=== PATIENT | female | born 1945 | race Caucasian/White ===

== ENCOUNTER → 2017-06-18 | Outpatient (CLI) | payer MEDICARE, OTHER ==
[~2017-06-18] MED LIST: CALC-51 PO; CALCTAB5 PO; CHOL2000 PO; CLC/300 PO; CYAN100073 PO; DEXT1CAP PO; DEXT1TAB15 PO; FERR1TAB13 PO; LORA-741 PO; OMEP40CA41 PO; ONDA-63 PO; ONDA4TAB65 PO; OXYC-609 PO; OXYC1CAP5 PO; PANT40TA PO; POLY335019 PO; RXC5 PO; SENN-61 PO; TRAM-10 PO; ULT/50 PO
[2017-06-18 17:43] LABS: HEMATOCRIT 22.4 % (37-47); HEMOGLOBIN 5.8 g/dL (12.0-16.0); MEAN CELL VOLUME 62.2 fL (80-100); MEAN CORPUSCULAR HEMOGLOBIN 16.1 pg (25-34); MEAN CORPUSCULAR HGB CONC 25.9 g/dl (32-36); MEAN PLATELET VOLUME 9.7 fL (7.4-10.4); NUCLEATED RED BLOOD CELL ABS 0.12 K/uL (0-0); PLATELET COUNT 407 K/uL (130-400); RED CELL DISTRIBUTION WIDTH CV 20.6 % (11.5-14.5); RED CELL DISTRIBUTION WIDTH SD 46.3 fL (36.4-46.3); WHITE BLOOD COUNT 7.27 K/uL (4.8-10.8)
[2017-06-18 17:53] LABS: BASO % 0.7 %; BASO ABS # 0.05 K/uL (0-0.2); EOS % 0.3 %; EOS ABS # 0.02 K/uL (0-0.5); IG# 0.01 K/uL (0.00-0.02); LYMPH % 6.6 %; LYMPH ABS # 0.48 K/uL (1.2-3.4); MONO % 14.6 %; MONO ABS # 1.06 K/uL (0.11-0.59); NEUT % 77.7 %; NEUT ABS # 5.65 K/uL (1.4-6.5)
[2017-06-18 18:34] LABS: ALBUMIN 3.5 gm/dl (3.4-5.0); ALT/SGPT 13 U/L (12-78); AST/SGOT 14 U/L (15-37); BLOOD UREA NITROGEN 21 mg/dl (7-18); CALCIUM 7.9 mg/dl (8.5-10.1); CARBON DIOXIDE 26 mmol/L (21-32); CREATININE 0.98 mg/dl (0.60-1.20); GLUCOSE 89 mg/dl (70-99); POTASSIUM 4.7 mmol/L (3.5-5.1); SODIUM 135 mmol/L (136-145)
[2017-06-18 18:44] LABS: ALKALINE PHOSPHATASE 149 U/L (45-117); TOTAL PROTEIN 7.4 gm/dl (6.4-8.2)
== END | disposition home or self-care (01) ==
LOC: C.LABPBG 15:45
PROVIDERS: ATTEND Family Medicine
DX: D64.9 Anemia, unspecified (principal); R10.9 Unspecified abdominal pain; E03.9 Hypothyroidism, unspecified

== ENCOUNTER 2017-06-19 15:19 | Inpatient (IN) | payer MEDICARE, OTHER ==
[~2017-06-19] VITALS: Ht 147.3 cm; Wt 59.6 kg
[2017-06-19] VITALS (12 sets, daily range): BP systolic 124–182; BP diastolic 62–97; PULSE 88–107; TEMP 36.6–37.4; O2SAT 97–100; Ht 147.3 cm; Wt 59.6 kg
[~2017-06-19 15:19] MED LIST changes: -CALC-51 PO; -CHOL2000 PO; -CYAN100073 PO; -DEXT1TAB15 PO; -OMEP40CA41 PO; -ONDA-63 PO; -OXYC-609 PO; -SENN-61 PO; -ULT/50 PO
[2017-06-19] MEDS ORDERED: SODIUM CHLORIDE 0.9% 500ML 500 ML IV STA (15:59)
--- NOTE | 2017-06-19 16:00 | EMERGENCY ROOM VISIT NOTE ---
History Report prepared by Iliana: Cb Man Under the Supervision of: Dr. Jaya Argueta M.D. First contact with patient: 15:35 Chief Complaint: ABNORMAL LABS Stated Complaint: LOW HBG History of Present Illness The patient is a 72 year old female who presents to the Emergency Room with complaints of constant low hemoglobin noticed this morning. The patient had outpatient blood work done, and she was found to have a low hemoglobin and told to come to the ED for evaluation. The patient states that she has had low hemoglobin before, and she has been scoped before though she has not had a colonoscopy. She was transfused before though not in the past 3 months. The patient notes that she has had weakness, shortness of breath, chest pain, vomiting, abdominal pain, and abdominal distension. She notes that she is not brining very much up when she vomits, and she states that she is hungry. She denies any black coffee ground emesis, bloody stools, and black stools. The patient has had three failed back surgeries that have made it more difficult to breathe. She denies any history of heart attacks, and she does not use any blood thinners. Source of History: patient Onset: this morning Position: other (generalized) Quality: other (shortness of breath) Timing: constant Associated Symptoms: + chest pain, + SOB, + vomiting, + abdominal pain, + weakness Review of Systems See HPI for pertinent positives and negatives. A total of ten systems were reviewed and were otherwise negative. 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 (11) Lumbar stenosis with neurogenic claudication (12) Narcolepsy (13) Postural kyphosis, thoracic region (14) Symptomatic anemia Surgical Problems: (1) History of back surgery (2) S/p breast fibroid removal Family History FHx: cancer Social History Smoking Status: Never Smoker Drug Use: none Marital Status: Housing Status: lives with significant other Current/Historical Medications Scheduled Calcium Carbonate-Vitamin D (Calcium), 1 TAB PO DAILY Dextroamphetamine Sulfate (Dextroamphetamine Sulfate), 20 MG PO QAM Ferrous Sulfate (Kp Ferrous Sulfate), 325 MG PO BID Lorazepam (Ativan), 0.5 MG PO HS Omeprazole (Prilosec), 40 MG PO BID Scheduled PRN Ondansetron (Ondansetron HCl), 8 MG PO UD PRN for Nausea Oxycodone HCl (Oxycodone HCl), 5 MG PO UD PRN for Pain Polyethylene Glycol 3350 (Miralax), 17 GM PO DAILY PRN for constipation Tramadol Hcl (Ultram), 50 MG PO UD PRN for Pain Allergies Coded Allergies: Midazolam (Unverified Allergy, Severe, AGRESSIVENESS, MEMORY LOSS, 06/19/17 ) Vancomycin (Verified Allergy, Severe, red man syndrome and XENIA, 06/19/17) Daptomycin (Verified Allergy, Mild, RASH, 06/19/17) Gluten (Verified Adverse Reaction, Unknown, SEVERE GI DISTRESS, 06/19/17) Physical Exam Vital Signs Date Time Temp Pulse Resp B/P (MAP) Pulse Ox O2 Delivery O2 Flow Rate FiO2 06/19/17 19:51 90 25 100 Nasal Cannula 2.0 06/19/17 19:46 37.2 123/86 06/19/17 19:31 138/95 06/19/17 19:30 95 19 99 06/19/17 19:30 37.1 95 18 138/95 99 2.0 06/19/17 19:17 144/99 06/19/17 19:01 140/78 06/19/17 19:00 37.2 92 24 140/78 100 2.0 06/19/17 19:00 92 24 100 06/19/17 18:44 37.1 99 20 138/91 99 2.0 06/19/17 18:34 154/74 06/19/17 18:33 36.6 94 30 124/62 100 2.0 06/19/17 18:27 124/62 06/19/17 17:49 93 26 06/19/17 17:19 93 19 95 06/19/17 17:19 94 22 136/67 96 Room Air 06/19/17 17:17 136/67 06/19/17 16:54 93 06/19/17 15:26 37.1 100 22 124/65 99 Room Air Physical Exam GENERAL: Awake, alert, fatigued-appearing, in no distress HENT: Normocephalic, atraumatic. Oropharynx unremarkable. Dry mucous membranes. EYES: Normal conjunctiva. Sclera non-icteric. NECK: Supple. No nuchal rigidity. FROM. No JVD. RESPIRATORY: Clear to auscultation. CARDIAC: 3/6 systolic murmur Regular rate, normal rhythm. Extremities warm and well perfused. Pulses equal. ABDOMEN: Soft, non-distended. No tenderness to palpation. No rebound or guarding. No masses. RECTAL: Deferred. MUSCULOSKELETAL: Chest examination reveals no tenderness. The back is symmetrical on inspection without obvious abnormality. There is no CVA tenderness to palpation. No joint edema. LOWER EXTREMITIES: Calves are equal size bilaterally and non-tender. No edema. No discoloration. NEURO: Normal sensorium. No sensory or motor deficits noted. SKIN: Pale. No rash or jaundice noted. Medical Decision & Procedures Laboratory Results 06/19/17 16:05 Red Blood Count 3.17, Mean Corpuscular Volume 61.5, Mean Corpuscular Hemoglobin 15.8, Mean Corpuscular Hemoglobin Concent 25.6, Mean Platelet Volume 9.8, Neutrophils (%) (Auto) 72.5, Lymphocytes (%) (Auto) 12.8, Monocytes (%) (Auto) 13.1, Eosinophils (%) (Auto) 0.6, Basophils (%) (Auto) 0.8, Neutrophils # (Auto ) 4.70, Lymphocytes # (Auto) 0.83, Monocytes # (Auto) 0.85, Eosinophils # (Auto ) 0.04, Basophils # (Auto) 0.05 06/19/17 16:05 Test 06/19/17 16:05 06/19/17 16:15 06/19/17 19:48 White Blood Count 6.48 K/uL (4.8-10.8) Red Blood Count 3.17 M/uL (4.2-5.4) Hemoglobin 5.0 g/dL (12.0-16.0) Hematocrit 19.5 % (37-47) Mean Corpuscular Volume 61.5 fL (80-100) Mean Corpuscular Hemoglobin 15.8 pg (25-34) Mean Corpuscular Hemoglobin Concent 25.6 g/dl (32-36) Platelet Count 378 K/uL (130-400) Mean Platelet Volume 9.8 fL (7.4-10.4) Neutrophils (%) (Auto) 72.5 % Lymphocytes (%) (Auto) 12.8 % Monocytes (%) (Auto) 13.1 % Eosinophils (%) (Auto) 0.6 % Basophils (%) (Auto) 0.8 % Neutrophils # (Auto) 4.70 K/uL (1.4-6.5) Lymphocytes # (Auto) 0.83 K/uL (1.2-3.4) Monocytes # (Auto) 0.85 K/uL (0.11-0.59) Eosinophils # (Auto) 0.04 K/uL (0-0.5) Basophils # (Auto) 0.05 K/uL (0-0.2) RDW Standard Deviation 46.0 fL (36.4-46.3) RDW Coefficient of Variation 20.8 % (11.5-14.5) Immature Granulocyte % (Auto) 0.2 % Immature Granulocyte # (Auto) 0.01 K/uL (0.00-0.02) Nucleated RBC Absolute Count (auto) 0.06 K/uL (0-0) Nucleated Red Blood Cells % 0.9 % Giant Platelets 1+ Polychromasia 1+ Hypochromasia PRESENT Anisocytosis PRESENT Microcytosis PRESENT Absolute Reticulocyte Count 0.09 10^6/uL (0.02-0.10) Percent Reticulocyte Count 2.9 % (0.5-2.0) Prothrombin Time 12.0 SECONDS (9.0-12.0) Prothromb Time International Ratio 1.1 (0.9-1.1) Activated Partial Thromboplast Time 23.6 SECONDS (21.0-31.0) Partial Thromboplastin Ratio 0.9 Anion Gap 6.0 mmol/L (3-11) Est Creatinine Clear Calc Drug Dose 38.6 ml/min Estimated GFR () 52.0 Estimated GFR (Non- 44.8 BUN/Creatinine Ratio 25.2 (10-20) Calcium Level 7.4 mg/dl (8.5-10.1) Iron Level 12 mcg/dl (35-150) Total Iron Binding Capacity 439 mcg/dl (250-450) Transferrin 344 mg/dl (200-360) Transferrin % Saturation 2 % (15-50) Ferritin 4.7 ng/ml (8.0-388.0) Total Bilirubin 0.5 mg/dl (0.2-1) Direct Bilirubin 0.2 mg/dl (0-0.2) Aspartate Amino Transf (AST/SGOT) 12 U/L (15-37) Alanine Aminotransferase (ALT/SGPT) 13 U/L (12-78) Alkaline Phosphatase 148 U/L (45-117) Lactate Dehydrogenase 231 U/L (84-246) Troponin I < 0.015 ng/ml (0-0.045) Total Protein 7.2 gm/dl (6.4-8.2) Albumin 3.4 gm/dl (3.4-5.0) Lipase 83 U/L (73-393) Lactic Acid Level 1.2 mmol/L (0.4-2.0) Urine Color YELLOW Urine Appearance CLEAR (CLEAR) Urine pH 7.0 (4.5-7.5) Urine Specific [place] 1.011 (1.000-1.030) Urine Protein NEG (NEG) Urine Glucose (UA) NEG (NEG) Urine Ketones NEG (NEG) Urine Occult Blood NEG (NEG) Urine Nitrite NEG (NEG) Urine Bilirubin NEG (NEG) Urine Urobilinogen NEG (NEG) Urine Leukocyte Esterase NEG (NEG) Laboratory results reviewed by me Medications Administered Medications (Trade) Dose Ordered Sig/Tez Route Start Time Stop Time Status Last Admin Dose Admin Sodium Chloride 500 ml @ 999 mls/hr Q31M STAT IV 06/19/17 15:59 06/19/17 16:29 DC 06/19/17 17:22 999 MLS/HR ECG Per My Interpretation Indication: SOB/dyspnea, other (low hemoglobin) Rate (beats per minute): 85 Rhythm: normal sinus Findings: no acute ischemic change, other (normal axis) ED Course 1535: The patient was evaluated in room C10. A complete history and physical exam was performed. Medical Decision I reviewed the patient's past medical history, medications, and the nursing notes as described above. Differential diagnosis: Etiologies such as diverticulosis, AVM, coagulopathy, colitis, inflammatory bowel disease, malignancy, Sravani-Serrano tear, esophagitis, peptic ulcer disease , variceal bleed, gastritis, epistaxis, fissure, hemorrhoids, as well as others were entertained. The patient is a 72-year-old woman with a past medical history of spinal stenosis as well as a prior history of severe anemia requiring transfusion who presents emergency department after having outpatient labs that demonstrated a hemoglobin of 5.8 per hpi. On arrival, the patient is fatigued and pale appearing but no acute distress, afebrile stable vital signs. Patient denies any hematemesis/coffee grounds or melena or hematochezia. Rectal exam demonstrates scant brown stool that is guaiac negative. Hemoglobin here today is 5.0. MCV 60s. Mild XENIA with creatinine 1.2 slightly increased from 2 days prior. WBC and lactate within normal limits. Patient was consented for blood and transfused [address] the abdomen pelvis was done and was unremarkable. EKG unremarkable. Patient remained hemodynamically stable in the emergency department. Case was discussed with Dr. Mancia [facility] hospitalist who will admit the patient for further management. Medication Reconcilliation Current Medication List: was personally reviewed by me Blood Pressure Screening Patient's blood pressure: Elevated blood pressure Consults Time Called: 1745 Consulting Physician[facility] Returned Call: [phone] Will evaluate patient for admission. Impression Primary Impression: Severe anemia Critical Care I have personally spent greater than 35 minutes of critical care time in the direct management of this patient. This includes bedside care, interpretation of diagnostic studies, and testing, discussion with consultants, patient, and family members, and other required patient management activities. This 35 minutes is in excess of all separately billable procedures. Scribe Attestation The scribe's documentation has been prepared under my direction and personally reviewed by me in its entirety. I confirm that the note above accurately reflects all work, treatment, procedures, and medical decision making performed by me. Departure Information Referrals Glo Hoang DO (PCP) Patient Instructions My [facility]
[2017-06-19] MEDS ORDERED: CALC-51 PO (16:13)
[2017-06-19] MEDS ORDERED: DEXT1TAB15 PO (16:13)
[2017-06-19] MEDS ORDERED: OXYC-609 PO (16:13)
[2017-06-19] MEDS ORDERED: OMEP40CA41 PO (16:13)
[2017-06-19] MEDS ORDERED: ULT/50 PO (16:13)
[2017-06-19] MEDS ORDERED: ONDA-63 PO (16:13)
--- NOTE | 2017-06-19 16:19 | DIAGNOSTIC IMAGING REPORT ---
SINGLE VIEW CHEST CLINICAL HISTORY: Generalized abdominal pain. FINDINGS: An AP, portable, upright chest radiograph is compared to study dated 07/31/2015. The examination is degraded by portable technique and patient rotation. The heart is enlarged and there is atherosclerotic calcification of the thoracic aorta. The pulmonary vasculature is noncongested. A hiatal hernia is noted. There are low lung volumes. Platelike atelectasis is present at both lung bases. There is no airspace consolidation typical for pneumonia or large pleural effusion. No pneumothorax is seen. The skeletal structures are osteopenic. There are postoperative changes from extensor thoracolumbar spinal fusion with spinal rods in place. IMPRESSION: 1. Low lung volumes and cardiomegaly with no acute cardiopulmonary abnormality. 2. Hiatal hernia. Electronically signed by: Hao Valencia M.D. 06/19/2017 4:18 PM Dictated Date/Time: 06/19/2017 4:15 PM
[2017-06-19 16:41] LABS: INR 1.1 (0.9-1.1); PTT PATIENT 23.6 SECONDS (21.0-31.0)
[2017-06-19 16:46] LABS: HEMATOCRIT 19.5 % (37-47); MEAN CELL VOLUME 61.5 fL (80-100); MEAN CORPUSCULAR HEMOGLOBIN 15.8 pg (25-34); MEAN CORPUSCULAR HGB CONC 25.6 g/dl (32-36); MEAN PLATELET VOLUME 9.8 fL (7.4-10.4); NUCLEATED RED BLOOD CELL ABS 0.06 K/uL (0-0); PLATELET COUNT 378 K/uL (130-400); RED CELL DISTRIBUTION WIDTH CV 20.8 % (11.5-14.5); WHITE BLOOD COUNT 6.48 K/uL (4.8-10.8)
[2017-06-19 16:56] LABS: ALBUMIN 3.4 gm/dl (3.4-5.0); ALT/SGPT 13 U/L (12-78); AST/SGOT 12 U/L (15-37); BLOOD UREA NITROGEN 31 mg/dl (7-18); CALCIUM 7.4 mg/dl (8.5-10.1); CARBON DIOXIDE 26 mmol/L (21-32); CREATININE 1.22 mg/dl (0.60-1.20); GLUCOSE 87 mg/dl (70-99); LIPASE 83 U/L (73-393); POTASSIUM 4.8 mmol/L (3.5-5.1); SODIUM 131 mmol/L (136-145)
[2017-06-19 16:59] LABS: BASO % 0.8 %; BASO ABS # 0.05 K/uL (0-0.2); EOS % 0.6 %; EOS ABS # 0.04 K/uL (0-0.5); IG# 0.01 K/uL (0.00-0.02); LYMPH % 12.8 %; LYMPH ABS # 0.83 K/uL (1.2-3.4); MONO % 13.1 %; MONO ABS # 0.85 K/uL (0.11-0.59); NEUT % 72.5 %
[2017-06-19] MEDS ORDERED: OPTIRAY 320 IV PRN (17:00)
[2017-06-19 17:01] LABS: ALKALINE PHOSPHATASE 148 U/L (45-117); TOTAL PROTEIN 7.2 gm/dl (6.4-8.2)
--- NOTE | 2017-06-19 18:25 | DIAGNOSTIC IMAGING REPORT ---
ABD/PELVIS IV CONTRAST ONLY CT DOSE: 252.18 mGy.cm HISTORY: Pain anemia TECHNIQUE: Multiaxial CT images of the abdomen and pelvis were performed following the use of intravenous contrast. A dose lowering technique was utilized adhering to the principles of ALARA. COMPARISON STUDY: 07/31/2015 FINDINGS: Minimal dependent basilar atelectasis. Fixed lateral hernia. Stable postoperative changes to the lumbar spine and sacrum. Stable compression deformities previously described. Liver spleen and pancreas are uniform. Kidneys negative for hydronephrosis. Bowel pattern suggests an increased fecal load suggestive of fecal stasis. No evidence for fecal impaction or bladder is slightly distended. No significant abdominal pelvic or inguinal adenopathy. No abnormal mass or collection. IMPRESSION: 1. Mild increase in colonic fecal load suggestive of fecal stasis. 2. Otherwise no acute process of the abdomen or pelvis. 3. Small fixed lateral hernia. 4. Stable postoperative change of the lumbar spine and sacrum /iliac wings The above report was generated using voice recognition software. It may contain grammatical, syntax or spelling errors. Electronically signed by: Kei Brenner M.D. 06/19/2017 6:24 PM Dictated Date/Time: 06/19/2017 6:21 PM
[2017-06-19] MEDS ORDERED: OXYCODONE HCL IR 5 MG TAB (IMMEDIATE RELEASE) PO PRN (19:30)
[2017-06-19] MEDS ORDERED: POLYETHYLENE (MIRALAX) 17 GM PACK PO PRN ×2 (19:30→20:00)
[2017-06-19] MEDS ORDERED: ONDANSETRON 8 MG TAB PO PRN (19:30)
[2017-06-19] MEDS ORDERED: TRAMADOL HCL 50 MG TAB PO PRN (19:30)
--- NOTE | 2017-06-19 19:53 | History and Physical ---
History & Physical Date & Time of Service: Jun 19, 2017 at 19:32 Chief Complaint: Low Hbg Primary Care Physician: Glo Hoang, History of Present Illness Source: patient, family, spouse 72 years old female with past medical history of severe chronic anemia, kyphosis , narcolepsy, failed back surgical syndrome, trigeminal neuralgia, celiac disease and fibromyalgia. Patient had presented before with severe anemia in August, status post multiple units transfusion where her hemoglobin went up to 7.7, since August her hemoglobin dropped slowly, patient admits not taking her iron tablet, in 2015 extensive anemia workup deemed her as iron deficiency anemia. Patient had an upper endoscopy that showed hiatal hernia . No recent colonoscopy. She did have a colonoscopy though about 20 years ago, she was told by the GI doctor that her colon is twisted in a way that he could not pass more than 20 cm into her colon patient have generalized fatigue, weakness. Feeling tired, pale. Recently changed primary care physician's. Her new primary care physician recommended to improve her general health before pursuing with colonoscopy/EGD. She was found to have a hemoglobin of 5.5 and was sent to the hospital for blood transfusion and anemia workup. Past Medical/Surgical History Medical Problems: (1) Ambulatory dysfunction (2) Anemia (3) Celiac disease (4) Chronic anemia (5) Chronic fatigue syndrome (6) Failed back surgical syndrome (7) Fibromyalgia (8) H/O Trung thyroiditis (9) H/o Lyme disease (10) Hiatal hernia (11) Hx of gastric ulcer (12) Infection of lumbar spine (13) Lower back pain (14) Lumbar stenosis with neurogenic claudication (15) Narcolepsy (16) Postural kyphosis, thoracic region (17) Symptomatic anemia Surgical Problems: (1) History of back surgery (2) S/p breast fibroid removal Family History FHx: cancer Social History Smoking Status: Never Smoker Drug Use: none Marital Status: Housing status: lives with family Allergies Coded Allergies: Midazolam (Unverified Allergy, Severe, AGRESSIVENESS, MEMORY LOSS, 06/19/17 ) Vancomycin (Verified Allergy, Severe, red man syndrome and XENIA, 06/19/17) Daptomycin (Verified Allergy, Mild, RASH, 06/19/17) Gluten (Verified Adverse Reaction, Unknown, SEVERE GI DISTRESS, 06/19/17) Home Medications Scheduled Calcium Carbonate-Vitamin D (Calcium), 1 TAB PO DAILY Dextroamphetamine Sulfate (Dextroamphetamine Sulfate), 20 MG PO QAM Ferrous Sulfate (Kp Ferrous Sulfate), 325 MG PO BID Lorazepam (Ativan), 0.5 MG PO HS Omeprazole (Prilosec), 40 MG PO BID Scheduled PRN Ondansetron (Ondansetron HCl), 8 MG PO UD PRN for Nausea Oxycodone HCl (Oxycodone HCl), 5 MG PO UD PRN for Pain Polyethylene Glycol 3350 (Miralax), 17 GM PO DAILY PRN for constipation Tramadol Hcl (Ultram), 50 MG PO UD PRN for Pain Physical Exam Vital Signs Date Time Temp Pulse Resp B/P (MAP) Pulse Ox O2 Delivery O2 Flow Rate FiO2 06/19/17 18:44 37.1 99 20 138/91 99 2.0 06/19/17 18:34 154/74 06/19/17 18:33 36.6 94 30 124/62 100 2.0 06/19/17 18:27 124/62 06/19/17 17:49 93 26 06/19/17 17:19 93 19 95 06/19/17 17:19 94 22 136/67 96 Room Air 06/19/17 17:17 136/67 06/19/17 16:54 93 06/19/17 15:26 37.1 100 22 124/65 99 Room Air Physical examination General patient appears to be comfortable, not in acute distress HEENT: Atraumatic , normocephalic /no jaundice /anicteric /no dry mucous membrane /normal external ear inspection, severe paleness Neck: Supple /no swelling /central trach Heart: S1/S2 normal/regular rate and rhythm/no gallop /no rub / 4/6 soft systolic murmur left parasternal area Lungs: Clear to auscultation bilaterally/normal chest with expansion/no rhonchi/ no rales/no wheezing/no use of accessory muscles of respiration Abdomen: Soft/nontender/no guarding/no rebound/no organomegaly/no pulsatile mass Musculoskeletal: No swelling/no edema/no tenderness/normal range of motion, significant deformity in her thoracic spines and severe kyphosis Neuro exam: Awake alert oriented 3/cranial nerves II through XII appear to be intact/sensation intact/moves all extremities/no abnormal movements Psychiatric evaluation: No depressed mood/normal affect Skin: No rash on exposed skin area/no erythema Extremity: Normal pulse/no pitting edema/no clubbing or cyanosis Endocrine/lymphatic: No obvious lymphadenopathy /no lymphedema he had a care drive safe Diagnostics Laboratory Results Results Past 24 Hours Test 06/19/17 16:05 06/19/17 16:15 06/19/17 18:57 Range/Units White Blood Count 6.48 4.8-10.8 K/uL Red Blood Count 3.17 4.2-5.4 M/uL Hemoglobin 5.0 12.0-16.0 g/dL Hematocrit 19.5 37-47 % Mean Corpuscular Volume 61.5 80-100 fL Mean Corpuscular Hemoglobin 15.8 25-34 pg Mean Corpuscular Hemoglobin Concent 25.6 32-36 g/dl Platelet Count 378 130-400 K/uL Mean Platelet Volume 9.8 7.4-10.4 fL Neutrophils (%) (Auto) 72.5 % Lymphocytes (%) (Auto) 12.8 % Monocytes (%) (Auto) 13.1 % Eosinophils (%) (Auto) 0.6 % Basophils (%) (Auto) 0.8 % Neutrophils # (Auto) 4.70 1.4-6.5 K/uL Lymphocytes # (Auto) 0.83 1.2-3.4 K/uL Monocytes # (Auto) 0.85 0.11-0.59 K/uL Eosinophils # (Auto) 0.04 0-0.5 K/uL Basophils # (Auto) 0.05 0-0.2 K/uL RDW Standard Deviation 46.0 36.4-46.3 fL RDW Coefficient of Variation 20.8 11.5-14.5 % Immature Granulocyte % (Auto) 0.2 % Immature Granulocyte # (Auto) 0.01 0.00-0.02 K/uL Nucleated RBC Absolute Count (auto) 0.06 0-0 K/uL Nucleated Red Blood Cells % 0.9 % Giant Platelets 1+ Polychromasia 1+ Hypochromasia PRESENT Anisocytosis PRESENT Microcytosis PRESENT Prothrombin Time 12.0 9.0-12.0 SECONDS Prothromb Time International Ratio 1.1 0.9-1.1 Activated Partial Thromboplast Time 23.6 21.0-31.0 SECONDS Partial Thromboplastin Ratio 0.9 Sodium Level 131 136-145 mmol/L Potassium Level 4.8 3.5-5.1 mmol/L Chloride Level 99 98-107 mmol/L Carbon Dioxide Level 26 21-32 mmol/L Anion Gap 6.0 3-11 mmol/L Blood Urea Nitrogen 31 7-18 mg/dl Creatinine 1.22 0.60-1.20 mg/dl Est Creatinine Clear Calc Drug Dose 38.6 ml/min Estimated GFR () 52.0 Estimated GFR (Non- 44.8 BUN/Creatinine Ratio 25.2 10-20 Random Glucose 87 70-99 mg/dl Calcium Level 7.4 8.5-10.1 mg/dl Total Bilirubin 0.5 0.2-1 mg/dl Direct Bilirubin 0.2 0-0.2 mg/dl Aspartate Amino Transf (AST/SGOT) 12 15-37 U/L Alanine Aminotransferase (ALT/SGPT) 13 12-78 U/L Alkaline Phosphatase 148 45-117 U/L Troponin I < 0.015 0-0.045 ng/ml Total Protein 7.2 6.4-8.2 gm/dl Albumin 3.4 3.4-5.0 gm/dl Lipase 83 73-393 U/L Lactic Acid Level 1.2 0.4-2.0 mmol/L Transferrin % Saturation 15-50 % Impression Assessment and Plan 72 years old female with past medical history of severe chronic anemia, kyphosis , narcolepsy, failed back surgical syndrome, trigeminal neuralgia, celiac disease and fibromyalgia. Presented with severe acute on chronic anemia. Assessment Severe acute and chronic iron deficiency anemia Celiac disease Hiatal hernia Trigeminal neuralgia Failed back surgical syndrome Narcolepsy Severe kyphosis History of Lyme Plan Admit patient to telemetry transfused 3 units of packed RBCs Obtain anemia study; including serum iron, serum iron binding capacity, transferring, transferrin, B12, folic acid, reticulocyte count, LDH to rule out hemolytic anemia, occult blood in stool to rule out chronic GI bleed Pain control Continue Protonix p.o. twice daily GI consult to consider upper EGD and colonoscopy Hematology consult Patient gave a history of Lyme disease, ordered LDH to rule out hemolysis as contributing etiology to anemia, inquired about other take associated diseases that can cause hemolysis. Since no active bleed right now well used heparin for DVT prophylaxis. Resuscitation Status VTE Prophylaxis Will order VTE Prophylaxis: Yes
[2017-06-19] MEDS: SODIUM CHLORIDE 0.9% 1000ML 1,000 ML IV SCH (19:54)
[2017-06-19] MEDS ORDERED: ACETAMINOPHEN 325 MG TAB PO PRN (20:00)
[2017-06-19] MEDS ORDERED: ZOLPIDEM TARTRATE 5 MG TAB PO PRN ×2 (20:00)
[2017-06-19] MEDS ORDERED: ALUMINUM/MAGNESIUM/SIMETH (MAALOX MAX) 30 ML UDC PO PRN (20:00)
[2017-06-19] MEDS ORDERED: MAGNESIUM HYDROXIDE SUSP 30 ML UDC PO PRN (20:00)
[2017-06-19] MEDS ORDERED: ONDANSETRON INJ 2 MG/ML 2 ML VIAL IV PRN (20:00)
[2017-06-19 20:16] LABS: RETIC COUNT % 2.9 % (0.5-2.0)
[2017-06-19] MEDS ORDERED: PANTOprazole SOD 40 MG TAB PO SCH (21:00)
[2017-06-19] MEDS: LORAZEPAM 0.5 MG TAB PO SCH (21:57)
[2017-06-19] MEDS: FERROUS SULFATE 325 MG TAB PO SCH (21:58)
[2017-06-19] MEDS ORDERED: ENOXAPARIN 30 MG/0.3 ML SYR SC SCH (23:00)
[2017-06-20] VITALS (7 sets, daily range): BP systolic 135–167; BP diastolic 75–85; PULSE 87–99; TEMP 36.7–37.3; O2SAT 96–98
[2017-06-20] MEDS: SODIUM CHLORIDE 0.9% 1000ML 1,000 ML IV SCH (06:07)
[2017-06-20 07:01] LABS: HEMATOCRIT 24.8 % (37-47); HEMOGLOBIN 7.2 g/dL (12.0-16.0); MEAN CELL VOLUME 66.5 fL (80-100); MEAN CORPUSCULAR HEMOGLOBIN 19.3 pg (25-34); MEAN PLATELET VOLUME 9.5 fL (7.4-10.4); NUCLEATED RED BLOOD CELL ABS 0.05 K/uL (0-0); PLATELET COUNT 313 K/uL (130-400); RED CELL DISTRIBUTION WIDTH CV 23.6 % (11.5-14.5); WHITE BLOOD COUNT 4.37 K/uL (4.8-10.8)
[2017-06-20 07:16] LABS: CALCIUM 7.8 mg/dl (8.5-10.1); CREATININE 0.89 mg/dl (0.60-1.20); POTASSIUM 3.9 mmol/L (3.5-5.1); TOTAL PROTEIN 6.6 gm/dl (6.4-8.2)
[2017-06-20 07:19] LABS: BASO % 1.1 %; BASO ABS # 0.05 K/uL (0-0.2); EOS % 2.1 %; EOS ABS # 0.09 K/uL (0-0.5); IG# 0.01 K/uL (0.00-0.02); LYMPH % 18.1 %; LYMPH ABS # 0.79 K/uL (1.2-3.4); MONO % 18.8 %; MONO ABS # 0.82 K/uL (0.11-0.59); NEUT % 59.7 %; NEUT ABS # 2.61 K/uL (1.4-6.5)
[2017-06-20] MEDS ORDERED: AMPHETAMINE ASP/SULF/DEXTRAMPH 20 MG TAB PO SCH (09:00)
--- NOTE | 2017-06-20 12:20 | Gastrointestinal Consultation ---
Gastrointestinal Consultation Date of Consultation: Jun 20, 2017 Attending Physician: Dr. Hanson Consulting Physician: Dr. Mujica Reason for Consultation: Severe anemia History of Present Illness Patient is a 72 year old female w PMHx of severe chronic anemia, kyphosis, narcolepsy, trigeminal neurolagia, celiac disease, fibromyalgia who presented to ED after referred by PCP for low Hgb of 5.5. Repeat H/H 07/12, given 2U PRBC transfusion now 7.2/. She has hx of iron deficiency anemia and also prior EGD evaluation in [address] Lees which showed large hiatal hernia w [place]'s erosion and non bleeding gastric ulcer. She is currently taking Prilosec ( Nexium previously caused her to be nauseous). Denies NSAIDs, tobacco. Colonoscopy done 20 yrs ago per her report by a surgeon but technically difficult. She had barium (virtual) colonoscopy since then which she said was normal. She had been placed on oral iron supplement but admits to forget taking it. Her iron studies currently showed Fe of 12, Trans sat 2%, Ferritin 4. FA and B12 normal. She denies any n/v, dark tarry stools. Did have abd bloating, but been having loose stools. CT abd/pelvis w evidence of hiatal hernia, fecal stasis. In regards to her celiac disease - it seems to be diagnosed via food elimination and symptoms response to gluten free foods. she was having abd pain until she eliminated gluten in diet and symptoms went away. I don't see any serology workup and duodenum bx in 2016 EGD unremarkable. 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 (13) Lower back pain (14) Lumbar stenosis with neurogenic claudication (15) Narcolepsy (16) Postural kyphosis, thoracic region (17) Symptomatic anemia Surgical Problems: (1) History of back surgery (2) S/p breast fibroid removal Family History FHx: cancer Social History Smoking Status: Never Smoker Drug Use: none Marital Status: Housing Status: lives with significant other Allergies Coded Allergies: Midazolam (Unverified Allergy, Severe, AGRESSIVENESS, MEMORY LOSS, 06/19/17 ) Vancomycin (Verified Allergy, Severe, red man syndrome and XENIA, 06/19/17) Daptomycin (Verified Allergy, Mild, RASH, 06/19/17) Gluten (Verified Adverse Reaction, Unknown, SEVERE GI DISTRESS, 06/19/17) Current Medications Home Meds and Scripts Medications Dose Route/Sig Max Daily Dose Days Date Category Dose Instructions Ultram (Tramadol Hcl) 50 Mg Tab 50 Mg PO UD PRN 06/19/17 Reported Oxycodone HCl 5 Mg Tab 5 Mg PO UD PRN 06/19/17 Reported Ondansetron HCl (Ondansetron) 8 Mg Tab 8 Mg PO UD PRN 06/19/17 Reported Prilosec (Omeprazole) 40 Mg Cap 40 Mg PO BID 06/19/17 Reported Dextroamphetamine Sulfate 10 Mg Tab 20 Mg PO QAM 06/19/17 Reported PT TO TAKE 2 TAB IN THE MORNING AND 1 TABLET 3 TIMES A DAY NEEDED. Calcium (Calcium Carbonate-Vitamin D) 1 Tab Tab 1 Tab PO DAILY 06/19/17 Reported Miralax (Polyethylene Glycol 3350) 1 Pow Pow 17 Gm PO DAILY PRN 09/18/15 Reported Kp Ferrous Sulfate (Ferrous Sulfate) 325 Mg Tab 325 Mg PO BID 30 09/18/15 Reported Ativan (Lorazepam) 0.5 Mg Tab 0.5 Mg PO HS 07/31/15 Reported Review of Systems Constitutional: No fever, No chills Respiratory: No cough, No shortness of breath Cardiac: No chest pain Abdomen: No pain, No nausea, No vomiting Physical Exam Date Time Temp Pulse Resp B/P (MAP) Pulse Ox O2 Delivery O2 Flow Rate FiO2 06/20/17 08:00 Room Air 06/20/17 07:45 37.0 88 20 135/75 (95) 97 Nasal Cannula 2.0 06/20/17 04:00 37.3 87 20 152/79 (103) 96 Nasal Cannula 2.0 06/20/17 04:00 Room Air 06/20/17 00:09 88 16 153/77 98 2.0 06/20/17 00:00 97 Room Air 06/19/17 23:45 37.1 92 145/74 97 2.0 06/19/17 23:45 37.1 92 145/74 (97) 97 Room Air 06/19/17 22:35 37.4 98 20 171/84 100 2.0 06/19/17 22:05 37.3 88 20 147/72 99 2.0 06/19/17 21:52 37.3 88 20 150/70 100 2.0 06/19/17 21:10 37.4 107 20 182/86 100 2.0 06/19/17 20:54 37.4 103 17 182/86 100 06/19/17 20:32 140/97 06/19/17 20:30 37.2 92 22 140/97 99 2.0 06/19/17 20:21 92 22 99 Nasal Cannula 2.0 06/19/17 20:16 150/77 06/19/17 20:01 132/87 06/19/17 20:00 90 22 132/87 100 2.0 06/19/17 19:51 90 25 100 Nasal Cannula 2.0 06/19/17 19:46 37.2 123/86 06/19/17 19:31 138/95 06/19/17 19:30 95 19 99 06/19/17 19:30 37.1 95 18 138/95 99 2.0 06/19/17 19:17 144/99 06/19/17 19:01 140/78 06/19/17 19:00 37.2 92 24 140/78 100 2.0 06/19/17 19:00 92 24 100 06/19/17 18:44 37.1 99 20 138/91 99 2.0 06/19/17 18:34 154/74 06/19/17 18:33 36.6 94 30 124/62 100 2.0 06/19/17 18:27 124/62 06/19/17 17:49 93 26 06/19/17 17:19 93 19 95 06/19/17 17:19 94 22 136/67 96 Room Air 06/19/17 17:17 136/67 06/19/17 16:54 93 06/19/17 15:26 37.1 100 22 124/65 99 Room Air General Appearance: WD/WN, no apparent distress Eyes: normal inspection, PERRL, EOMI Neck: supple, no JVD, trachea midline Respiratory/Chest: normal breath sounds, no respiratory distress, no accessory muscle use Cardiovascular: regular rate, rhythm, no gallop, no murmur Abdomen: normal bowel sounds, non tender, + distended (mild) Extremities: normal inspection, no pedal edema, no calf tenderness Neurologic/Psych: alert, normal mood/affect, oriented x 3 Skin: normal color, no jaundice, no rash Laboratory Results Last 24 Hours Test 06/19/17 16:05 06/19/17 16:15 06/19/17 19:48 06/19/17 21:30 White Blood Count 6.48 K/uL Red Blood Count 3.17 M/uL Hemoglobin 5.0 g/dL Hematocrit 19.5 % Mean Corpuscular Volume 61.5 fL Mean Corpuscular Hemoglobin 15.8 pg Mean Corpuscular Hemoglobin Concent 25.6 g/dl Platelet Count 378 K/uL Mean Platelet Volume 9.8 fL Neutrophils (%) (Auto) 72.5 % Lymphocytes (%) (Auto) 12.8 % Monocytes (%) (Auto) 13.1 % Eosinophils (%) (Auto) 0.6 % Basophils (%) (Auto) 0.8 % Neutrophils # (Auto) 4.70 K/uL Lymphocytes # (Auto) 0.83 K/uL Monocytes # (Auto) 0.85 K/uL Eosinophils # (Auto) 0.04 K/uL Basophils # (Auto) 0.05 K/uL RDW Standard Deviation 46.0 fL RDW Coefficient of Variation 20.8 % Immature Granulocyte % (Auto) 0.2 % Immature Granulocyte # (Auto) 0.01 K/uL Nucleated RBC Absolute Count (auto) 0.06 K/uL Nucleated Red Blood Cells % 0.9 % Giant Platelets 1+ Polychromasia 1+ Hypochromasia PRESENT Anisocytosis PRESENT Microcytosis PRESENT Absolute Reticulocyte Count 0.09 10^6/uL Percent Reticulocyte Count 2.9 % Prothrombin Time 12.0 SECONDS Prothromb Time International Ratio 1.1 Activated Partial Thromboplast Time 23.6 SECONDS Partial Thromboplastin Ratio 0.9 Sodium Level 131 mmol/L Potassium Level 4.8 mmol/L Chloride Level 99 mmol/L Carbon Dioxide Level 26 mmol/L Anion Gap 6.0 mmol/L Blood Urea Nitrogen 31 mg/dl Creatinine 1.22 mg/dl Est Creatinine Clear Calc Drug Dose 38.6 ml/min Estimated GFR () 52.0 Estimated GFR (Non- 44.8 BUN/Creatinine Ratio 25.2 Random Glucose 87 mg/dl Calcium Level 7.4 mg/dl Iron Level 12 mcg/dl Total Iron Binding Capacity 439 mcg/dl Transferrin 344 mg/dl Transferrin % Saturation 2 % Ferritin 4.7 ng/ml Total Bilirubin 0.5 mg/dl Direct Bilirubin 0.2 mg/dl Aspartate Amino Transf (AST/SGOT) 12 U/L Alanine Aminotransferase (ALT/SGPT) 13 U/L Alkaline Phosphatase 148 U/L Lactate Dehydrogenase 231 U/L Troponin I < 0.015 ng/ml Total Protein 7.2 gm/dl Albumin 3.4 gm/dl Lipase 83 U/L Lactic Acid Level 1.2 mmol/L Urine Color YELLOW Urine Appearance CLEAR Urine pH 7.0 Urine Specific [place] 1.011 Urine Protein NEG Urine Glucose (UA) NEG Urine Ketones NEG Urine Occult Blood NEG Urine Nitrite NEG Urine Bilirubin NEG Urine Urobilinogen NEG Urine Leukocyte Esterase NEG Vitamin B12 Level 294 pg/mL Folate 8.59 ng/mL Hepatitis C Antibody Screen NEG Test 06/20/17 06:28 White Blood Count 4.37 K/uL Red Blood Count 3.73 M/uL Hemoglobin 7.2 g/dL Hematocrit 24.8 % Mean Corpuscular Volume 66.5 fL Mean Corpuscular Hemoglobin 19.3 pg Mean Corpuscular Hemoglobin Concent 29.0 g/dl Platelet Count 313 K/uL Mean Platelet Volume 9.5 fL Neutrophils (%) (Auto) 59.7 % Lymphocytes (%) (Auto) 18.1 % Monocytes (%) (Auto) 18.8 % Eosinophils (%) (Auto) 2.1 % Basophils (%) (Auto) 1.1 % Neutrophils # (Auto) 2.61 K/uL Lymphocytes # (Auto) 0.79 K/uL Monocytes # (Auto) 0.82 K/uL Eosinophils # (Auto) 0.09 K/uL Basophils # (Auto) 0.05 K/uL RDW Standard Deviation 57.0 fL RDW Coefficient of Variation 23.6 % Immature Granulocyte % (Auto) 0.2 % Immature Granulocyte # (Auto) 0.01 K/uL Nucleated RBC Absolute Count (auto) 0.05 K/uL Nucleated Red Blood Cells % 1.1 % Giant Platelets 1+ Polychromasia 1+ Hypochromasia PRESENT Anisocytosis PRESENT Microcytosis PRESENT Sodium Level 134 mmol/L Potassium Level 3.9 mmol/L Chloride Level 103 mmol/L Carbon Dioxide Level 26 mmol/L Anion Gap 5.0 mmol/L Blood Urea Nitrogen 18 mg/dl Creatinine 0.89 mg/dl Est Creatinine Clear Calc Drug Dose 44.9 ml/min Estimated GFR () 76.1 Estimated GFR (Non- 65.7 BUN/Creatinine Ratio 20.6 Random Glucose 89 mg/dl Calcium Level 7.8 mg/dl Magnesium Level 2.3 mg/dl Total Bilirubin 1.0 mg/dl Aspartate Amino Transf (AST/SGOT) 17 U/L Alanine Aminotransferase (ALT/SGPT) 12 U/L Alkaline Phosphatase 131 U/L Total Protein 6.6 gm/dl Albumin 3.0 gm/dl Globulin 3.6 gm/dl Albumin/Globulin Ratio 0.8 Impression Patient is a 72 year old female who was referred to ED by PCP for asymptomatic anemia. She received 2U PRBC transfusions overnight, H/H responded from 07/12 to 09/16. She is w/o s/s of overt GI bleeding. Does have hx of large hiatal hernia w hx of gastric ulcer & [place] erosions. Denies any NSAIDs, tobacco uses. May have chronic iron deficiency anemia from [place]'s erosions. Questionable celiac disease given no prior serology workup though her abd pain, bloating symptoms resolved after she went gluten free. She had been prescribed iron supplements but admits to forget to take them. Plan - Monitor H/H and transfuse prn - Continue iron supplements; may consider Heme/Onc consult for Venofer IV - Protonix 40mg BID. - Check celiac serologies - Will plan for repeat EGD and attempt repeat colonoscopy in outpt setting. - Ok to advance diet as tolerated. Attg add: I interviewed and examined pt, reviewed chart and labs. Pt iwth h/o severe anemia in 2016 attrib to [place]'s ulceration in large HH now admit with symptomatic anemia without evidence of acute bleed. She also has a h/o celicap sprue, although not clear how this was dx'd. She as not had recent csocpy. On exam, BP is stable. Labs show normal BUN and microcytic anemia. Rec iron/ folate supplemenation, outpt scopes, consideration for Venofer. Can discuss further w/u for sprue as outpt; would only consider this if pt wishes to consider d/c'ing gluten free diet. Will sign off. Please call with questions.
[2017-06-20] MEDS: FERROUS SULFATE 325 MG TAB PO SCH ×2 (13:56→21:04)
[2017-06-20] MEDS: CALCIUM 600MG + VIT D 400 IU TAB PO SCH (13:56)
[2017-06-20] MEDS ORDERED: CYANOCOBALAMIN 1000 MCG/ML VIAL IM STA (15:51)
[2017-06-20] MEDS ORDERED: CHOL2000 PO (16:46)
[2017-06-20] MEDS ORDERED: SENN-61 PO (16:46)
[2017-06-20] MEDS ORDERED: CYAN100073 PO (16:46)
--- NOTE | 2017-06-20 16:50 | Discharge Instructions ---
Discharge Instructions Date of Service Jun 20, 2017. Admission Reason for Admission: Severe Anemia Discharge Discharge Diagnosis / Problem: Acute on Chronic Anemia Discharge Goals Goal(s): Decrease discomfort, Improve function, Increase independence Activity Recommendations Activity Limitations: per Instructions/Follow-up section Lifting Limitations: gradually increase as tolerated Exercise/Sports Limitations: gradually increase as tolerated . Current Hospital Diet Patient's current hospital diet: Regular Diet, Gluten Free Diet Discharge Diet Recommended Diet: Gluten Free Diet Pending Studies Studies pending at discharge: yes List of pending studies: Celiac panel Medical Emergencies . Who to Call and When: Medical Emergencies: If at any time you feel your situation is an emergency, please call 911 immediately. . Non-Emergent Contact Non-Emergency issues call your: Primary Care Provider Call Non-Emergent contact if: you have a fever, your pain is concerning you, you have any medication questions . . "Provider Documentation" section prepared by Carmen Mccarthy. .
--- NOTE | 2017-06-20 17:01 | Oncology Consultation ---
Oncology/Heme Consultation Date of Consultation: Jun 20, 2017. Attending Physician: Dionicio Hopson MD Reason for Consultation: Iron-deficiency anemia Celiac disease History of Present Illness Ms. Petersen is a 72 year old woman with a variety of prior GI complaints. She has been iron deficient at multiple times in the past and reports a history of Celiac disease. She has not had serologic testing, but has severe, debilitating abdominal cramping and discomfort that lasts several days when she is exposed to gluten. She also had an EGD in the past for iron deficiency that revealed a large hiatal hernia and [place] erosions. She was supposed to be taking oral iron supplements but admits intermittent compliance. She presents for this admission with severe fatigue and weakness and was found to be profoundly anemic (Hgb 5, MCV 61.5) and a ferritin of <5. She has been transfused and is feeling much better. She denies any changes in her stools or blood in her stool. She has not had a colonoscopy in many years. Past Medical/Surgical History Medical Problems: (1) Ambulatory dysfunction Status: Acute (2) Anemia Status: Acute (3) Lower back pain Status: Acute (4) Severe anemia Status: Acute Family History FHx: cancer Social History Smoking Status: Never Smoker Drug Use: none Marital Status: Housing Status: lives with significant other Allergies Coded Allergies: Midazolam (Unverified Allergy, Severe, AGRESSIVENESS, MEMORY LOSS, 06/19/17 ) Vancomycin (Verified Allergy, Severe, red man syndrome and XENIA, 06/19/17) Daptomycin (Verified Allergy, Mild, RASH, 06/19/17) Gluten (Verified Adverse Reaction, Unknown, SEVERE GI DISTRESS, 06/19/17) Home Medications Scheduled Calcium Carbonate-Vitamin D (Calcium), 1 TAB PO DAILY Cholecalciferol (Vitamin D3), 1 CAP PO DAILY Cyanocobalamin (B12), 1,000 MCG PO DAILY Dextroamphetamine Sulfate (Dextroamphetamine Sulfate), 20 MG PO QAM Ferrous Sulfate (Kp Ferrous Sulfate), 325 MG PO BID Lorazepam (Ativan), 0.5 MG PO HS Omeprazole (Prilosec), 40 MG PO BID Senna (Senokot), 1 TAB PO DAILY Scheduled PRN Ondansetron (Ondansetron HCl), 8 MG PO UD PRN for Nausea Oxycodone HCl (Oxycodone HCl), 5 MG PO UD PRN for Pain Polyethylene Glycol 3350 (Miralax), 17 GM PO DAILY PRN for constipation Tramadol Hcl (Ultram), 50 MG PO UD PRN for Pain Current Inpatient Medications Current Inpatient Medications Medications (Trade) Dose Ordered Sig/Tez Route Start Time Stop Time Status Last Admin Dose Admin Ioversol (Optiray 320) 100 ml UD PRN IV 06/19/17 17:00 06/23/17 16:59 Lorazepam (Ativan Tab) 0.5 mg HS PO 06/19/17 21:00 07/19/17 20:59 06/19/17 21:57 0.5 MG Ondansetron HCl (Zofran Tab) 8 mg Q6H PRN PO 06/19/17 19:30 07/19/17 19:29 Tramadol HCl (Ultram Tab) 50 mg Q4H PRN PO 06/19/17 19:30 07/19/17 19:29 06/20/17 13:56 50 MG Calcium/Vitamin D (Caltrate Plus Tab) 1 tab DAILY PO 06/20/17 09:00 07/20/17 08:59 06/20/17 13:56 1 TAB Ferrous Sulfate (Feosol Tab) 325 mg BID PO 06/19/17 21:00 07/19/17 20:59 06/20/17 13:56 325 MG Polyethylene (Miralax Powder Packet) 17 gm DAILY PRN PO 06/19/17 19:30 07/19/17 19:29 Oxycodone HCl (Roxicodone Immediate Rel Tab) 5 mg Q4H PRN PO 06/19/17 19:30 07/03/17 19:29 06/20/17 13:56 5 MG Sodium Chloride 1,000 ml @ 15 mls/hr Q24H IV 06/19/17 19:54 07/19/17 19:53 06/20/17 06:07 15 MLS/HR Acetaminophen (Tylenol Tab) 650 mg Q4H PRN PO 06/19/17 20:00 07/19/17 19:59 Al Hydrox/Mg Hydrox/Simethicone (Maalox Max Susp) 15 ml Q4H PRN PO 06/19/17 20:00 07/19/17 19:59 Magnesium Hydroxide (Milk Of Magnesia Susp) 30 ml Q12H PRN PO 06/19/17 20:00 07/19/17 19:59 Zolpidem Tartrate (Ambien Tab) 5 mg HSZ PRN PO 06/19/17 20:00 07/19/17 19:59 Zolpidem Tartrate (Ambien Tab) 5 mg HSZ PRN PO 06/19/17 20:00 07/19/17 19:59 Ondansetron HCl (Zofran Inj) 4 mg Q6H PRN IV 06/19/17 20:00 07/19/17 19:59 Polyethylene (Miralax Powder Packet) 17 gm DAILY PRN PO 06/19/17 20:00 07/19/17 19:59 Miscellaneous Information (Order Awaiting Action) 1 ea QS N/A 06/20/17 08:00 07/20/17 07:59 Pantoprazole Sodium (Protonix Tab) 40 mg BID PO 06/20/17 21:00 06/24/17 09:01 Review of Systems Constitutional: + weakness, + fatigue ENT: No unusual epistaxis Respiratory: No cough, No shortness of breath Cardiovascular: No chest pain Abdomen: No pain, No nausea, No GI bleeding Musculoskeletal: No joint pain, No muscle pain Genitourinary - Female: No hematuria, No vaginal bleeding Hematologic / Lymphatic: No abnormal bleeding/bruising Physical Exam Date Time Temp Pulse Resp B/P (MAP) Pulse Ox O2 Delivery O2 Flow Rate FiO2 06/20/17 15:24 36.7 98 20 154/83 (106) 97 Room Air 06/20/17 12:00 36.8 93 20 161/85 (110) 97 Room Air 06/20/17 12:00 Room Air 06/20/17 08:00 Room Air 06/20/17 07:45 37.0 88 20 135/75 (95) 97 Nasal Cannula 2.0 06/20/17 04:00 37.3 87 20 152/79 (103) 96 Nasal Cannula 2.0 06/20/17 04:00 Room Air 06/20/17 00:09 88 16 153/77 98 2.0 06/20/17 00:00 97 Room Air 06/19/17 23:45 37.1 92 145/74 97 2.0 06/19/17 23:45 37.1 92 145/74 (97) 97 Room Air 06/19/17 22:35 37.4 98 20 171/84 100 2.0 06/19/17 22:05 37.3 88 20 147/72 99 2.0 06/19/17 21:52 37.3 88 20 150/70 100 2.0 06/19/17 21:10 37.4 107 20 182/86 100 2.0 06/19/17 20:54 37.4 103 17 182/86 100 06/19/17 20:32 140/97 06/19/17 20:30 37.2 92 22 140/97 99 2.0 06/19/17 20:21 92 22 99 Nasal Cannula 2.0 06/19/17 20:16 150/77 06/19/17 20:01 132/87 06/19/17 20:00 90 22 132/87 100 2.0 06/19/17 19:51 90 25 100 Nasal Cannula 2.0 06/19/17 19:46 37.2 123/86 06/19/17 19:31 138/95 06/19/17 19:30 95 19 99 06/19/17 19:30 37.1 95 18 138/95 99 2.0 06/19/17 19:17 144/99 06/19/17 19:01 140/78 06/19/17 19:00 37.2 92 24 140/78 100 2.0 06/19/17 19:00 92 24 100 06/19/17 18:44 37.1 99 20 138/91 99 2.0 06/19/17 18:34 154/74 06/19/17 18:33 36.6 94 30 124/62 100 2.0 06/19/17 18:27 124/62 06/19/17 17:49 93 26 06/19/17 17:19 93 19 95 06/19/17 17:19 94 22 136/67 96 Room Air 06/19/17 17:17 136/67 06/19/17 16:54 93 General Appearance: WD/WN, no apparent distress Eyes: + pertinent finding (conjunctival pallor) Respiratory/Chest: lungs clear Cardiovascular: regular rate, rhythm Abdomen/GI: non tender, soft Extremities/Musculoskelatal: no pedal edema Neurologic/Psych: alert, oriented x 3 Skin: no rash Laboratory Results Last 24 Hours Test 06/19/17 19:48 06/19/17 21:30 06/20/17 06:28 06/20/17 13:42 Urine Color YELLOW Urine Appearance CLEAR Urine pH 7.0 Urine Specific [place] 1.011 Urine Protein NEG Urine Glucose (UA) NEG Urine Ketones NEG Urine Occult Blood NEG Urine Nitrite NEG Urine Bilirubin NEG Urine Urobilinogen NEG Urine Leukocyte Esterase NEG Vitamin B12 Level 294 pg/mL Folate 8.59 ng/mL Hepatitis C Antibody Screen NEG White Blood Count 4.37 K/uL Red Blood Count 3.73 M/uL Hemoglobin 7.2 g/dL Hematocrit 24.8 % Mean Corpuscular Volume 66.5 fL Mean Corpuscular Hemoglobin 19.3 pg Mean Corpuscular Hemoglobin Concent 29.0 g/dl Platelet Count 313 K/uL Mean Platelet Volume 9.5 fL Neutrophils (%) (Auto) 59.7 % Lymphocytes (%) (Auto) 18.1 % Monocytes (%) (Auto) 18.8 % Eosinophils (%) (Auto) 2.1 % Basophils (%) (Auto) 1.1 % Neutrophils # (Auto) 2.61 K/uL Lymphocytes # (Auto) 0.79 K/uL Monocytes # (Auto) 0.82 K/uL Eosinophils # (Auto) 0.09 K/uL Basophils # (Auto) 0.05 K/uL RDW Standard Deviation 57.0 fL RDW Coefficient of Variation 23.6 % Immature Granulocyte % (Auto) 0.2 % Immature Granulocyte # (Auto) 0.01 K/uL Nucleated RBC Absolute Count (auto) 0.05 K/uL Nucleated Red Blood Cells % 1.1 % Giant Platelets 1+ Polychromasia 1+ Hypochromasia PRESENT Anisocytosis PRESENT Microcytosis PRESENT Sodium Level 134 mmol/L Potassium Level 3.9 mmol/L Chloride Level 103 mmol/L Carbon Dioxide Level 26 mmol/L Anion Gap 5.0 mmol/L Blood Urea Nitrogen 18 mg/dl Creatinine 0.89 mg/dl Est Creatinine Clear Calc Drug Dose 44.9 ml/min Estimated GFR () 76.1 Estimated GFR (Non- 65.7 BUN/Creatinine Ratio 20.6 Random Glucose 89 mg/dl Calcium Level 7.8 mg/dl Magnesium Level 2.3 mg/dl Total Bilirubin 1.0 mg/dl Aspartate Amino Transf (AST/SGOT) 17 U/L Alanine Aminotransferase (ALT/SGPT) 12 U/L Alkaline Phosphatase 131 U/L Total Protein 6.6 gm/dl Albumin 3.0 gm/dl Globulin 3.6 gm/dl Albumin/Globulin Ratio 0.8 25-Hydroxy Vitamin D Total 6.2 ng/ml Test 06/20/17 13:43 Assessment & Plan Ms. Petersen is profoundly iron deficient. She has been transfused but might benefit from a bit more blood, since she is still under 8. I will arrange to replace her iron intravenously as an outpatient. GI have been consulted and advocated conservative management. Since this is a chronic issue and she has no evidence of hemorrhage, I think that is fine, though she should definitely be scoped at some point. They can also evaluate her further with regard to her possible diagnosis of Celiac disease. I will make arrangements for her to see me as an outpatient.
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
[2017-06-20] MEDS: PANTOprazole SOD 40 MG TAB PO SCH (20:00)
[2017-06-20] MEDS: LORAZEPAM 0.5 MG TAB PO SCH (21:04)
[2017-06-21 07:43] VITALS: BP 123/69; PULSE 90; TEMP 36.4; O2SAT 97
[2017-06-21 08:00] VITALS: O2SAT 97
[2017-06-21] MEDS ORDERED: CYANOCOBALAMIN 500 MCG TAB (VIT B-12) PO SCH (08:00)
[2017-06-21] MEDS: PANTOprazole SOD 40 MG TAB PO SCH (08:00)
[2017-06-21] MEDS ORDERED: CYANOCOBALAMIN 1000 MCG/ML VIAL IM ONE (08:00)
[2017-06-21] MEDS ORDERED: CHOLECALCIFEROL 1000 INTER.UNIT TAB PO SCH (08:00)
[2017-06-21 08:35] LABS: HEMATOCRIT 29.2 % (37-47); HEMOGLOBIN 8.3 g/dL (12.0-16.0); MEAN CELL VOLUME 67.1 fL (80-100); MEAN CORPUSCULAR HEMOGLOBIN 19.1 pg (25-34); MEAN CORPUSCULAR HGB CONC 28.4 g/dl (32-36); MEAN PLATELET VOLUME 9.6 fL (7.4-10.4); NUCLEATED RED BLOOD CELL ABS 0.04 K/uL (0-0); PLATELET COUNT 352 K/uL (130-400); RED CELL DISTRIBUTION WIDTH CV 24.7 % (11.5-14.5); RED CELL DISTRIBUTION WIDTH SD 59.1 fL (36.4-46.3)
[2017-06-21] MEDS: CALCIUM 600MG + VIT D 400 IU TAB PO SCH (08:54)
[2017-06-21] MEDS: FERROUS SULFATE 325 MG TAB PO SCH (08:54)
[2017-06-21 08:55] LABS: BASO % 0.4 %; BASO ABS # 0.02 K/uL (0-0.2); EOS % 2.4 %; EOS ABS # 0.11 K/uL (0-0.5); LYMPH % 15.1 %; LYMPH ABS # 0.68 K/uL (1.2-3.4); MONO % 24.9 %; MONO ABS # 1.12 K/uL (0.11-0.59); NEUT % 57.2 %; NEUT ABS # 2.57 K/uL (1.4-6.5)
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
--- NOTE | 2017-06-21 10:54 | Discharge Instructions ---
Discharge Instructions Date of Service Jun 21, 2017. Admission Reason for Admission: Severe Anemia Discharge Discharge Diagnosis / Problem: Severe anemia Discharge Goals Goal(s): Improve disease control, Diagnostic testing, Therapeutic intervention Activity Recommendations Activity Limitations: as noted below Exercise/Sports Limitations: gradually increase as tolerated . Instructions / Follow-Up Instructions / Follow-Up You were admitted with severe anemia and given a blood transfusion. You had improvement of your anemia, but it is still not quite back to a normal level. You should continue to take oral iron, but it is recommended that you follow-up with hematology for IV iron infusions. He should also follow-up with the group work program aide to consider upper and lower endoscopies to look for source of bleeding. You also found to be severely vitamin D deficient, as well as mildly vitamin B12 deficient and supplementation of both of these vitamins was given. Please follow-up with your primary care physician within 1-2 weeks. Current Hospital Diet Patient's current hospital diet: Regular Diet, Gluten Free Diet Discharge Diet Recommended Diet: Regular Diet, Gluten Free Diet Procedures Procedures Performed: CT abdomen/pelvis Chest x-ray Pending Studies Studies pending at discharge: yes List of pending studies: Celiac disease panel Laboratory Results Last 24 Hours Test 06/20/17 13:42 06/20/17 13:43 06/21/17 07:37 25-Hydroxy Vitamin D Total 6.2 ng/ml White Blood Count 4.50 K/uL Red Blood Count 4.35 M/uL Hemoglobin 8.3 g/dL Hematocrit 29.2 % Mean Corpuscular Volume 67.1 fL Mean Corpuscular Hemoglobin 19.1 pg Mean Corpuscular Hemoglobin Concent 28.4 g/dl Platelet Count 352 K/uL Mean Platelet Volume 9.6 fL Neutrophils (%) (Auto) 57.2 % Lymphocytes (%) (Auto) 15.1 % Monocytes (%) (Auto) 24.9 % Eosinophils (%) (Auto) 2.4 % Basophils (%) (Auto) 0.4 % Neutrophils # (Auto) 2.57 K/uL Lymphocytes # (Auto) 0.68 K/uL Monocytes # (Auto) 1.12 K/uL Eosinophils # (Auto) 0.11 K/uL Basophils # (Auto) 0.02 K/uL RDW Standard Deviation 59.1 fL RDW Coefficient of Variation 24.7 % Immature Granulocyte % (Auto) 0.0 % Immature Granulocyte # (Auto) 0.00 K/uL Nucleated RBC Absolute Count (auto) 0.04 K/uL Nucleated Red Blood Cells % 1.0 % Polychromasia 1+ Hypochromasia PRESENT Anisocytosis PRESENT Medical Emergencies . Who to Call and When: Medical Emergencies: If at any time you feel your situation is an emergency, please call 911 immediately. . Non-Emergent Contact Non-Emergency issues call your: Primary Care Provider Call Non-Emergent contact if: your pain is not controlled, your pain is worsening, your pain is unusual for you, your pain is concerning you, you have any medication questions . . "Provider Documentation" section prepared by Roro Pascual. .
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
[2017-06-21 11:29] VITALS: BP 123/69; PULSE 90; TEMP 36.4; O2SAT 97
== END 2017-06-21 15:20 | disposition home or self-care (01) | DRG 812 ==
LOC: C.EDB 15:20 → C.2T 19:56 → ENRESERV 20:17 → C.MS4W 06-20 19:34
PROVIDERS: ADMIT Internal Medicine; ATTEND Family Medicine
DX: D50.9 Iron deficiency anemia, unspecified (principal); R45.851 Suicidal ideations; E55.9 Vitamin D deficiency, unspecified; E53.8 Deficiency of other specified B group vitamins; F32.9 Major depressive disorder, single episode, unspecified; K90.0 Celiac disease; K44.9 Diaphragmatic hernia without obstruction or gangrene; G50.0 Trigeminal neuralgia; M96.1 Postlaminectomy syndrome, not elsewhere classified; G47.419 Narcolepsy without cataplexy; M40.209 Unspecified kyphosis, site unspecified; M79.7 Fibromyalgia; M81.0 Age-related osteoporosis without current pathological fracture; Z91.14 Patient's other noncompliance with medication regimen; Z86.19 Personal history of other infectious and parasitic diseases; Z87.19 Personal history of other diseases of the digestive system; Z91.410 Personal history of adult physical and sexual abuse; Z91.411 Personal history of adult psychological abuse; Z79.899 Other long term (current) drug therapy; Z88.1 Allergy status to other antibiotic agents; Z88.8 Allergy status to other drugs, medicaments and biological substances; Z81.4 Family history of other substance abuse and dependence; Z81.8 Family history of other mental and behavioral disorders

== ENCOUNTER 2018-07-17 22:21 | Observation (INO) ==
[2018-07-17] MEDS ORDERED: SODIUM CHLORIDE 0.9% 1000ML 1,000 ML IV ONE (23:29)
[2018-07-17] MEDS ORDERED: LORazepam 1 MG/2 ML VIAL IV STA (23:29)
[2018-07-17 23:46] LABS: Appearance Urine Turbid (Clear); Bacteria Urine Automated Negative (Negative); Bilirubin Urine Negative (Negative); Blood Urine 1+ (Negative); Color Urine Dark Yellow; Epithelial Cell Urine Auto >30 /lpf (0-5); Glucose Urine UA Negative (Negative); Ketones Urine Trace (Negative); Leukocyte Esterase Urine Negative (Negative); Nitrite Urine Negative (Negative); Specific Gravity Urine 1.018 (1.000-1.030); Urobilinogen Urine Negative (Negative); pH Urine >= 9.0 (4.5-7.5)
[2018-07-17 23:49] LABS: Basophils # (auto) 0.04 K/uL (0-0.2); Basophils % (auto) 0.4 %; Eosinophils # (auto) 0.01 K/uL (0-0.5); Eosinophils % (auto) 0.1 %; Hematocrit (blood only) 41.1 % (37-47); Hemoglobin 14.2 g/dL (12.0-16.0); Immature Granulocytes # (auto) 0.02 K/uL (0.00-0.02); Immature Granulocytes % (auto) 0.2 %; Lymphocytes % (auto) 6.3 %; Mean Corpuscular Hgb Conc 34.5 g/dL (32-36); Mean Corpuscular Volume 84.4 fL (80-100); Mean Platelet Volume 10.1 fL (7.4-10.4); Monocytes # (auto) 1.02 K/uL (0.11-0.59); Monocytes % (auto) 10.7 %; Neutrophils # (auto) 7.82 K/uL (1.4-6.5); Neutrophils % (auto) 82.3 %; Platelet Count 317 K/uL (130-400); RDW Coefficient of Variation 15.4 % (11.5-14.5); RDW Standard Deviation 47.2 fL (36.4-46.3); Red Blood Count 4.87 M/uL (4.2-5.4); White Blood Count 9.51 K/uL (4.8-10.8)
[2018-07-17 23:56] LABS: Protein Urine Negative (Negative)
[2018-07-18 00:01] LABS: INR 1.1 (0.9-1.1); Partial Thromboplastin Ratio 0.9; Partial Thromboplastin Time 23.9 Seconds (21.0-31.0); Prothrombin Time 11.4 Seconds (9.0-12.0)
[2018-07-18 00:06] LABS: BUN Creatinine Ratio 12.9 (10-20); Blood Urea Nitrogen 15 mg/dl (7-18); Carbon Dioxide 31 mmol/L (21-32); Chloride 95 mmol/L (98-107); Creatinine Clr Calc Pharmacy 34.3 ml/min; Est GFR (Non-African American) 48.3; Glucose 138 mg/dl (70-99); Potassium 3.6 mmol/L (3.5-5.1); Sodium 137 mmol/L (136-145)
[2018-07-18 00:07] LABS: Alanine Aminotransferase 29 U/L (12-78); Albumin Level 3.7 gm/dl (3.4-5.0); Aspartate Aminotransferase 64 U/L (15-37); Bilirubin Direct 0.2 mg/dl (0-0.2); Calcium 9.3 mg/dl (8.5-10.1); Magnesium 2.5 mg/dl (1.8-2.4)
[2018-07-18 00:18] LABS: Alkaline Phosphatase 140 U/L (45-117); Bilirubin,Total 0.6 mg/dl (0.2-1); Total Protein 8.2 gm/dl (6.4-8.2); Troponin I < 0.015 ng/ml (0-0.045)
[2018-07-18] MEDS ORDERED: ONDANSETRON INJ 2 MG/ML 2 ML VIAL IV STA (00:24)
[2018-07-18] MEDS ORDERED: SODIUM CHLORIDE 0.9% 1000ML 1,000 ML IV ONE (00:24)
[2018-07-18] MEDS ORDERED: MoRPHine SULFATE 4 MG/ML 1 ML CARP\\VIAL IV STA (00:24)
[2018-07-18] MEDS ORDERED: IOVERSOL 100ml IV PRN (00:46)
[2018-07-18] MEDS ORDERED: LABETALOL HCL IV 5 MG/ML 20ML IV STA (02:42)
[2018-07-18] MEDS ORDERED: LABETALOL HCL IV 5 MG/ML 20ML IV ONE (02:46)
--- NOTE | 2018-07-18 02:55 | Emergency Department Note ---
Entered by Berto Us acting as a scribe for Nathanael Hameed MD ED Provider Note Name: Jolene Petersen Age: 73, female Arrives Via: EMS Informant: Patient CC: Vomiting HPI: The patient is a 73 year old female [facility] of [facility] vomiting beginning a week ago. The patient states that she had a failed back surgery 3.5 years ago that has caused her to have vomiting issues since. She also complains of diarrhea, chest burning, chills, diaphoresis, feeling off balance, SOB, and mild abdominal swelling. She notes that she has SOB when she stands up. She denies any black/bloody stool, hematemesis, urinary symptoms, leg swelling, lightheadedness, and rashes. She reports that she was here in the emergency department a few weeks ago for CP. The patient states that she has a history of C diff. ROS: See above HPI for pertinent positives & negatives. A total of 10 systems reviewed and were otherwise negative. Past Medical History: Hypertension, Trung's disease, chronic back pain, tro chanteric fracture of right femur, anxiety, depression, gastroparesis, SOB, anemia, narcolepsy, celiac disease, fibromyalgia, lyme disease, gastric ulcer, hiatal hernia, infection of lumbar spine, postural kyphosis, and MVP. Past Surgical History: History of back surgery. Family History: None Social History: , retired, does not smoke cigarettes, does not drink alcohol, does not use drugs. Home Medications: Acetaminophen, dextroamphetamine, duloxetine, ferrous sulfate, gabapentin, hydrochlorothiazide, hydroxyzine HCl, omeprazole, ondansetron HCL, and sennosides. Allergies: Midazolam, vancomycin, daptomycin, fentanyl, gluten, milk. Physical: Vitals: BP 189/113 H, Pulse 100 H, Resp 18, Temp 98.2 F, O2 Sat 93 Exam: GENERAL: Patient is severely anxious appearing and in no acute distress, tremulous. Cachectic appearing, sunken eyes. EYES: No scleral icterus, unremarkable pupils. ENT: Mucous membranes dry, no nasal congestion. NECK: No masses appreciated, no meningismus, trachea is midline. RESPIRATORY: No dyspnea. Clear to auscultation and equal bilaterally. No wheeze, no rhonchi. CARDIOVASCULAR: Regular rhythm and tachycardic. No murmurs, rubs, gallops appreciated. GASTROINTESTINAL: Abdomen soft, non-tender, no peritonitis. Bowel sounds positive. No masses appreciated. BACK: No midline tenderness, no CVA tenderness EXTREMITIES: Normal motion all extremities, no cyanosis, no edema. NEUROLOGIC: Alert and oriented, no acute motor or sensory deficits, no focal weakness, cranial nerves grossly intact. SKIN: No rash, no jaundice, no diaphoresis, dry skin. ED Course: 2322: The patient was evaluated in room B5. A complete history and physical exam was performed. 0024: I reevaluated and updated the patient. She notes that she now has abdominal discomfort. Her nausea is mildly improved but she states that she still has it and wants to try Zofran. 0124: Upon reevaluation, the patient is stable. I discussed the findings and the treatment plan with the patient. She expresses agreement and understanding. I spoke with Dr. Valentin of the [facility] Hospitalist Service. The patient will be evaluated for further management. Prior Medical Record, Triage/Nursing Notes, Medications, Allergies reviewed by Me Vital Signs: reviewed and remarkable for HTN, Tachy Labs: Reviewed and remarkable for elevated Lactate Interventions: Saline Lock, NSS bolus 1L IV x 2, Zofran 4mg IV, Ativan 1mg IV, Morphine 4mg IV Imaging: CT ABDOMEN & PELVIS With Contrast: Comparison: CT dated 08/12/2017. Scattered air-fluid levels in small bowel may be related to enteritis/enterocolitis in the appropriate clinical setting. Correlate clinically. No high-grade bowel obstruction, significant bowel wall thickening, free fluid, or free air. No evidence of acute appendicitis. Moderate hiatal hernia. Incidental findings: Mildly heterogenous fatty liver. Osseous degenerative changes and osteopenia and osseous structures. Postsurgical changes of right proximal femur and spine. Atherosclerotic vascular disease without abdominal aortic aneurysm. Radiologist: Tiara Titus MD. EKG: Normal sinus, 95, no ectopy, no ischemia, QTC 507 Consults: 0124: I reviewed the patient's case with Dr. Valentin - Hospitalist, [facility]. He will evaluate the patient for further management. Blood pressure: Elevated - Will be monitored by hospitalist. Disposition: Hospitalization Differentials: Differential diagnosis includes gastroenteritis, food borne illness, infections, appendicitis, diverticulitis, inflammatory bowel disease, obstruction, GI bleed, biliary pathology, cardiac process, intracranial process, as well as others were entertained. Medical Decision Makin yr old very anxious/upset female complaining of nausea, vomiting and diarrhea ongoing for some time though worsening. Now severely dehydrated with vague complaints of abdominal pain. Exam with benign abdomen on arrival. Heme negative stool. Cdiff negative. no fever, nor wbc elevation nor clear evidence of UTI. Lactate is elevated. With this felt imaging indicated which fortunately CT abd/pelv just reveals enteritis without clear evidence ischemia nor obstruction. Patient does not have enough pain to be consistent with bowel. She was much more comfortable with above and getting re-hydrated. With elevated lactate and symptoms felt hospitalist evaluation reasonable and they will bring in for further work-up and evaluation. I do not find evidence of sepsis nor indication for empiric antibiotics at this time. Impression: Gastroenteritis, lactic acidosis. Nathanael Hameed MD The scribe's documentation has been prepared under my direction and personally reviewed by me in its entirety. I confirm that the note above accurately reflects all work, treatment, procedures, and medical decision making performed by me. Impression & Plan Gastroenteritis, Acidosis, lactic Past Med/Surg History Medical History Hypertension Trung's disease Chronic back pain Trochanteric fracture of right femur (Acute) Anxiety and depression (Chronic) Gastroparesis SOB (shortness of breath) (Acute) Anemia (Acute) Narcolepsy (Chronic) Celiac disease (Chronic) Fibromyalgia (Chronic) H/O Trung thyroiditis (Chronic) H/o Lyme disease (Chronic) Failed back surgical syndrome (Chronic) Chronic anemia (Chronic) Chronic fatigue syndrome (Chronic) Hx of gastric ulcer (Chronic) Hiatal hernia (Chronic) Infection of lumbar spine Lumbar stenosis with neurogenic claudication (Chronic) Postural kyphosis, thoracic region Symptomatic anemia Clostridium difficile infection MVP (mitral valve prolapse) Surgical History History of back surgery (Chronic) Social History Preferred Language: Beninese Communication Ability: Effective Visual Impairment: No Limitations Beliefs That Will Affect Care: None marital status: Current Living Situation: Spouse current occupational status: retired Feels Safe at Home: Yes Smoking Status: Never smoker Second Hand Exposure: No Hx Alcohol Use: No Hx Substance Use: No Results & Data Vital Signs Vital Signs - 24 hr 07/17/18 22:33 07/18/18 00:10 07/18/18 01:48 Temperature 36.8 C Temperature Source Oral Sepsis Recent Fever Within 48 Hours No Sepsis Action Taken by Nursing No Action Required Pulse Rate 107 H Pulse Rate [Right Finger] 100 H 94 H Pulse Strength Normal Respiratory Rate 20 18 20 Respiratory Effort / Characteristics Non-Labored Non-Labored Spontaneous Non-Labored Respiratory Depth Normal Normal Normal Respiratory Pattern Regular Regular Regular Blood Pressure 186/113 H Blood Pressure [Right Arm] 189/113 H 170/114 H Blood Pressure Mean 137 Blood Pressure Mean [Right Arm] 138 132 Blood Pressure Position Lying Blood Pressure Position [Right Arm] Lying Lying Pulse Oximetry 97 93 97 Oxygen Delivery Method Room Air Room Air Nasal Cannula Oxygen Flow Rate 2 07/18/18 02:42 07/18/18 02:50 Temperature Temperature Source Sepsis Recent Fever Within 48 Hours Sepsis Action Taken by Nursing Pulse Rate Pulse Rate [Right Finger] 101 H 91 H Pulse Strength Respiratory Rate 18 18 Respiratory Effort / Characteristics Non-Labored Spontaneous Non-Labored Spontaneous Respiratory Depth Normal Normal Respiratory Pattern Regular Blood Pressure Blood Pressure [Right Arm] 212/118 H 185/111 H Blood Pressure Mean Blood Pressure Mean [Right Arm] 149 135 Blood Pressure Position Blood Pressure Position [Right Arm] Lying Lying Pulse Oximetry 97 96 Oxygen Delivery Method Room Air Room Air Oxygen Flow Rate Home Medications Current Medication List: was personally reviewed by me Laboratory Data Attestation: I reviewed the patient's lab results. Result diagrams: 07/17/18 23:37 07/17/18 23:37 Lab Results 07/17/18 07/17/18 07/17/18 Range/Units 23:05 23:37 23:37 WBC 9.51 (4.8-10.8) K/uL RBC 4.87 (4.2-5.4) M/uL Hgb 14.2 (12.0-16.0) g/dL Hct 41.1 (37-47) % MCV 84.4 (80-100) fL MCH 29.2 (25-34) pg MCHC 34.5 (32-36) g/dL RDW Std Deviation 47.2 H (36.4-46.3) fL RDW Coeff of Ken[place] 15.4 H (11.5-14.5) % Plt Count 317 (130-400) K/uL MPV 10.1 (7.4-10.4) fL Immature Gran % (Auto) 0.2 % Neut % (Auto) 82.3 % Lymph % (Auto) 6.3 % [place] % (Auto) 10.7 % Eos % (Auto) 0.1 % Baso % (Auto) 0.4 % Immature Gran # (Auto) 0.02 (0.00-0.02) K/uL Neut # (Auto) 7.82 H (1.4-6.5) K/uL Lymph # (Auto) 0.60 L (1.2-3.4) K/uL [place] # (Auto) 1.02 H (0.11-0.59) K/uL Eos # (Auto) 0.01 (0-0.5) K/uL Baso # (Auto) 0.04 (0-0.2) K/uL PT 11.4 (9.0-12.0) Seconds INR 1.1 (0.9-1.1) APTT 23.9 (21.0-31.0) Seconds PTT Ratio 0.9 Sodium (136-145) mmol/L Potassium (3.5-5.1) mmol/L Chloride (98-107) mmol/L Carbon Dioxide (21-32) mmol/L Anion Gap (3-11) BUN (7-18) mg/dl Creatinine (0.6-1.2) mg/dl Est Cr Clr Drug Dosing ml/min Est GFR ( Amer) Est GFR (Non-Af Amer) BUN/Creatinine Ratio (10-20) Glucose (70-99) mg/dl Lactate (0.4-2.0) mmol/L Calcium (8.5-10.1) mg/dl Magnesium (1.8-2.4) mg/dl Total Bilirubin (0.2-1) mg/dl Direct Bilirubin (0-0.2) mg/dl AST (15-37) U/L ALT (12-78) U/L Alkaline Phosphatase (45-117) U/L Troponin I (0-0.045) ng/ml Total Protein (6.4-8.2) gm/dl Albumin (3.4-5.0) gm/dl Lipase (73-393) U/L TSH (0.300-4.500) uIu/ml Urine Color Dark Yellow Urine Appearance Turbid A (Clear) Urine pH >= 9.0 H (4.5-7.5) Ur Specific [place] 1.018 (1.000-1.030) Urine Protein Negative (Negative) Urine Glucose (UA) Negative (Negative) Urine Ketones Trace H (Negative) Urine Blood 1+ H (Negative) Urine Nitrite Negative (Negative) Urine Bilirubin Negative (Negative) Urine Urobilinogen Negative (Negative) Ur Leukocyte Esterase Negative (Negative) Urine WBC (Auto) 1-5 (0-5) /hpf Urine RBC (Auto) 10-30 H (0-4) /hpf U Hyaline Cast (Auto) 5-10 H (0-5) /lpf U Epithel Cells (Auto) >30 H (0-5) /lpf Urine Bacteria (Auto) Negative (Negative) Stl C. diff Tox B Gene (Neg) 07/17/18 07/17/18 07/18/18 Range/Units 23:37 23:38 00:05 WBC (4.8-10.8) K/uL RBC (4.2-5.4) M/uL Hgb (12.0-16.0) g/dL Hct (37-47) % MCV (80-100) fL MCH (25-34) pg MCHC (32-36) g/dL RDW Std Deviation (36.4-46.3) fL RDW Coeff of Kenia (11.5-14.5) % Plt Count (130-400) K/uL MPV (7.4-10.4) fL Immature Gran % (Auto) % Neut % (Auto) % Lymph % (Auto) % [place]arton % (Auto) % Eos % (Auto) % Baso % (Auto) % Immature Gran # (Auto) (0.00-0.02) K/uL Neut # (Auto) (1.4-6.5) K/uL Lymph # (Auto) (1.2-3.4) K/uL [place] # (Auto) (0.11-0.59) K/uL Eos # (Auto) (0-0.5) K/uL Baso # (Auto) (0-0.2) K/uL PT (9.0-12.0) Seconds INR (0.9-1.1) APTT (21.0-31.0) Seconds PTT Ratio Sodium 137 (136-145) mmol/L Potassium 3.6 (3.5-5.1) mmol/L Chloride 95 L (98-107) mmol/L Carbon Dioxide 31 (21-32) mmol/L Anion Gap 11.0 (3-11) BUN 15 (7-18) mg/dl Creatinine 1.14 (0.6-1.2) mg/dl Est Cr Clr Drug Dosing 34.3 ml/min Est GFR ( Amer) 56.0 Est GFR (Non-Af Amer) 48.3 BUN/Creatinine Ratio 12.9 (10-20) Glucose 138 H (70-99) mg/dl Lactate 4.1 H* (0.4-2.0) mmol/L Calcium 9.3 (8.5-10.1) mg/dl Magnesium 2.5 H (1.8-2.4) mg/dl Total Bilirubin 0.6 (0.2-1) mg/dl Direct Bilirubin 0.2 (0-0.2) mg/dl AST 64 H (15-37) U/L ALT 29 (12-78) U/L Alkaline Phosphatase 140 H (45-117) U/L Troponin I < 0.015 (0-0.045) ng/ml Total Protein 8.2 (6.4-8.2) gm/dl Albumin 3.7 (3.4-5.0) gm/dl Lipase 255 (73-393) U/L TSH 1.990 (0.300-4.500) uIu/ml Urine Color Urine Appearance (Clear) Urine pH (4.5-7.5) Ur Specific [place] (1.000-1.030) Urine Protein (Negative) Urine Glucose (UA) (Negative) Urine Ketones (Negative) Urine Blood (Negative) Urine Nitrite (Negative) Urine Bilirubin (Negative) Urine Urobilinogen (Negative) Ur Leukocyte Esterase (Negative) Urine WBC (Auto) (0-5) /hpf Urine RBC (Auto) (0-4) /hpf U Hyaline Cast (Auto) (0-5) /lpf U Epithel Cells (Auto) (0-5) /lpf Urine Bacteria (Auto) (Negative) Stl C. diff Tox B Gene Negative Cdiff Gene (Neg) Administered Medications Ioversol (Optiray 320 100ml) 94 ml IV ONCE PRN PRN Reason: Interaction Checking Stop: 07/22/18 00:45 Last Admin: 07/18/18 00:47 Dose: 94 ml Documented by: [id number] Discontinued Medications Lorazepam (Ativan) 1 mg in 2 mls @ 2 mls/min IV NOW STA Stop: 07/17/18 23:30 Last Admin: 07/18/18 00:04 Dose: 2 mls/min Documented by: [id number] Sodium Chloride (Nss 1000ml) 1,000 mls @ 999 mls/hr IV .Q1H1M ONE Stop: 07/18/18 00:29 Last Infusion: 07/18/18 01:18 Dose: 0 mls/hr Documented by: [id number] Admin: 07/17/18 23:53 Dose: 999 mls/hr Documented by: [id number] Sodium Chloride (Nss 1000ml) 1,000 mls @ 999 mls/hr IV .Q1H1M ONE Stop: 07/18/18 01:24 Last Infusion: 07/18/18 01:26 Dose: 0 mls/hr Documented by: [id number] Admin: 07/18/18 00:34 Dose: 999 mls/hr Documented by: [id number] Labetalol HCl (Normodyne) Confirm Administered Dose 10 mg IV .STK-MED ONE Stop: 07/18/18 02:47 Last Admin: 07/18/18 02:48 Dose: 10 mg Documented by: [id number] Cosigned by: [id number] Morphine Sulfate (Morphine Sulfate) 4 mg IV NOW STA Stop: 07/18/18 00:25 Last Admin: 07/18/18 00:34 Dose: 4 mg Documented by: [id number] Ondansetron HCl (Zofran) 4 mg IV NOW STA Stop: 07/18/18 00:25 Last Admin: 07/18/18 00:35 Dose: 4 mg Documented by: [id number] Discharge Plan Visit Data Chief Complaint: Nausea Stated Complaint: NAUSEA, VOMITING, DIARRHEA ED Provider: Nathanael Hameed Discharge Problem: Gastroenteritis, Acidosis, lactic Patient Disposition: Being Evaluated by Hospitalist Forms Stand Alone Forms: [facility] Prescriptions Prescriptions: No Action hydrochlorothiazide 25 mg Tablet 25 mg PO DAILY RF: 0 ondansetron HCl 8 mg tablet 8 mg PO UD PRN (Reason: Nausea) RF: 0 omeprazole 40 mg capsule,delayed release(DR/EC) 40 mg PO BID RF: 0 dextroamphetamine 10 mg tablet 20 mg PO QAM RF: 0 hydroxyzine HCl 25 mg tablet 25 mg PO Q8H PRN (Reason: itching) Qty: 20 RF: 0 sennosides [senna] 8.6 mg Tablet 8.6 mg PO DAILY RF: 0 ferrous sulfate 325 mg (65 mg iron) Tablet 325 mg PO BID RF: 0 acetaminophen [Mapap (acetaminophen)] 325 mg Tablet 650 mg PO Q4H PRN (Reason: pain) Qty: 30 RF: 0 gabapentin 100 mg Capsule 100 mg PO TID Qty: 90 RF: 0 duloxetine 60 mg Capsule,Delayed Release(Dr/Ec) 60 mg PO QAM Qty: 30 RF: 0 Referrals Referrals: Glo Hoang, DO [Primary Care Provider] - The scribe's documentation has been prepared under my direction and personally r eviewed by me in its entirety. I confirm that the note above accurately reflects all work, treatment, procedures, and medical decision making performed by me.
--- NOTE | 2018-07-18 03:26 | History & Physical Report ---
Date of Service July 18, 2018 Assessment & Plan (1) Gastroenteritis: 73yoF with chronic back pain-hx of failed back surgeries x 3 for bulging discs and trauma (fell off horse x 2) with subsequent sob due to postural kyphosis, and chronic vomiting/headache of unknown etiology, HTN, anxiety, an emia, narcolepsy, fibromyalgia, and hiatal hernia. Presented with vomiting x 1 week and 4 episodes of watery diarrhea which started today. Of note, vomiting chronic associated with headaches and appears to be induced with increase in abdominal pressure based on history, started s/p back surgery 3.5 years ago. Gastroenteritis Diarrhea starting today with vomiting although pt has chronic vomiting as well -Afebrile, mildly tachycardic to 100s, WBC normal -no significant electrolyte derangements -Lactate 4.1 -C. diff negative -lipase normal -Abd/pelvis CT: enteritis/enterocolitis, no bowel obstruction, moderate hiatal hernia, mildly heterogenous fatty liver -LFT: AST 64, alk phos 140 -Received 2L IVFs in the ED, continue NS at 125cc/hr -Reglan 10mg Q6H PRN for nausea/vomiting -Repeat lactate and CMP Chronic vomiting concern for increased intracranial pressure Started 3.5 years ago s/p back surgeries, pt has significant kyphosis, vomiting occurs when defecating every time or sitting and associated with headaches Reports work up in the past with no known etiology. Hx of gastroparesis listed in chart but she denies it, also celiac listed but she reports test being negative as she had already taken out celiac from diet to see if stops vomiting when tested. -Ct abdomen: moderate hiatal hernia -MRI brain ordered -On reglan prn Sob: appears to be chronic, reports secondary to kyphosis/back surgery Denies any chest pain -On 2L NC (not on O2 at home) -Troponin negative -Supplemental O2 as needed -Continue to monitor and wean O2 HTN: pt hypertensive to 212/118 in the ED - did not take HCTZ today due to vomiting -Given dose of labetalol 10mg IV x 1 wit improvement in BP to 162/92 -Continue home hydralazine Chronic Back Pain s/p 3 failed surgeries for bulging discs and fractures; fibromyalgia -Continue home duloxetine and gabapentin -Tylenol prn GERD -Continue home omeprazole Narcolepsy -Pt appeared anxious but reports baseline due to having rods in bad and not being comfortable, denies taking dextroamphetamine for 1 week since ill -Hold home dextroamphetamine while hospitalized Anxiety -Considered possible dextroamphetamine overdose however appears to be chronic and pt denies taking dextroamphetamine for 1 week since ill -Received ativan 1mg x 1 -Continue home hydroxyzine Code: Full DVT prop: SCDs Dispo: med/surg with telemetry (2) Acidosis, lactic: (3) HTN (hypertension): (4) Anxiety: (5) Chronic back pain: (6) SOB (shortness of breath): (7) Anemia: (8) Narcolepsy: (9) Fibromyalgia: (10) Hiatal hernia: (11) Postural kyphosis, thoracic region: History of Present Illness Primary Care Provider: Glo Hoang, DO 73yoF with chronic back pain-hx of failed back surgeries x 3 for bulging discs and trauma (fell off horse x 2) with subsequent sob due to postural kyphosis, and chronic vomiting/headache of unknown etiology, HTN, anxiety, anemia, narcolepsy, hiatal hernia. Presented with vomiting x 1 week and 4 episodes of watery diarrhea which started today. Per pt she usually has more frequent but not this watery diarrhea. She reports vomiting 3-4x today every time she took a bite to eat and the last time before coming to the ED it looked like "coffee grounds". Sample was brought to ED and per ED doctor, Dr. Stinson no concern for coffee ground emesis. Stool sample was also brought which was negative for C.diff (pt reported hx of C. diff in the past). Per patient and family, vomiting has been going on for 3.5 years since back surgeries. She vomits every time she has a bowel movement and usually when she is sitting. She also has frequent headaches with these vomits. Occasionally she also has diaphoresis. At the time of exam, she felt better but was very tired and cold. She reported feeling nauseous but not having vomited since arrival in the ED. She did have 2 episodes of diarrhea since arrival. Feels sob (chronically sob due to kyphosis). Has abdominal pain with BMs. Denies any cp, dizziness, dysuria, hematuria, hematochezia, melena Of note: pt appears anxious but she reports from pain of having rods in back and not being comfortable. Pt is on dextroamphetamine for narcolepsy but reports not having any for 1 week due to vomiting. Past Medical History: Hypertension, chronic back pain, anxiety, depression, chronic SOB due to postural kyphosis, anemia, narcolepsy, fibromyalgia, hiatal hernia, infection of lumbar spine, postural kyphosis Past Surgical History: History of back surgery x 3. Social History: , retired, does not smoke cigarettes, does not drink alcohol, does not use drugs. Home Medications: Acetaminophen, dextroamphetamine, duloxetine, ferrous sulfate, gabapentin, hydrochlorothiazide, hydroxyzine HCl, omeprazole, ondansetron HCL, and sennosides. Allergies: Midazolam, vancomycin, daptomycin, fentanyl, gluten, milk. Allergies Allergy/AdvReac Type Severity Reaction Status Date / Time midazolam Allergy Severe AGRESSIVENESS, Verified 07/17/18 23:02 MEMORY LOSS vancomycin Allergy Severe red man Verified 07/17/18 23:02 syndrome and XENIA daptomycin Allergy Mild RASH Verified 07/17/18 23:02 fentanyl Allergy Vomiting Verified 07/17/18 23:02 gluten AdvReac Unknown SEVERE GI Verified 07/17/18 23:02 DISTRESS milk AdvReac Gastrointestinal Verified 07/17/18 23:02 Upset Home Medications Home Medications Medication Instructions Recorded Confirmed Type dextroamphetamine 20 mg PO QAM 12/03/17 07/17/18 History omeprazole 40 mg PO BID 12/03/17 07/17/18 History ondansetron HCl 8 mg PO UD PRN 12/03/17 07/17/18 History hydroxyzine HCl 25 mg PO Q8H PRN #20 tab 12/05/17 07/17/18 Rx ferrous sulfate 325 mg PO BID 12/28/17 07/17/18 History sennosides [senna] 8.6 mg PO DAILY 12/28/17 07/17/18 History acetaminophen [Mapap 650 mg PO Q4H PRN #30 tab 01/05/18 07/17/18 Rx (acetaminophen)] duloxetine 60 mg PO QAM #30 cap 01/05/18 07/17/18 Rx gabapentin 100 mg PO TID #90 cap 01/05/18 07/17/18 Rx hydrochlorothiazide 25 mg PO DAILY 07/04/18 07/17/18 History Past Med/Surg History Medical History Hypertension Trung's disease Chronic back pain Trochanteric fracture of right femur (Acute) Anxiety and depression (Chronic) Gastroparesis SOB (shortness of breath) (Acute) Anemia (Acute) Narcolepsy (Chronic) Celiac disease (Chronic) Fibromyalgia (Chronic) H/O Trung thyroiditis (Chronic) H/o Lyme disease (Chronic) Failed back surgical syndrome (Chronic) Chronic anemia (Chronic) Chronic fatigue syndrome (Chronic) Hx of gastric ulcer (Chronic) Hiatal hernia (Chronic) Infection of lumbar spine Lumbar stenosis with neurogenic claudication (Chronic) Postural kyphosis, thoracic region Symptomatic anemia Clostridium difficile infection MVP (mitral valve prolapse) Surgical History History of back surgery (Chronic) Family History Other Family history non-contributory Social History Preferred Language: Divehi Communication Ability: Effective Visual Impairment: No Limitations 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 Beliefs That Will Affect Care: None marital status: Current Living Situation: Spouse current occupational status: retired Other Information That Helps Us Care for You: No Feels Safe at Home: Yes Safety Concerns: Feels Safe At This Time Smoking Status: Never smoker Do You Dip or Chew Tobacco: No Second Hand Exposure: No Tobacco Cessation Education Requested by Patient: No Hx Alcohol Use: No Hx Substance Use: No Review of Systems Review of Systems: As per HPI Physical Exam Physical Exam: General: Appears anxious constantly turning in bed, pleasant HEENT: dry mucous membranes CV: RRR, no m/r/g, cap refill 2 sec PULM: CTAB diminished but equal breath sounds bilaterally ABDOMEN: +BS, non-distended, non-tender to palpation in all quadrants MSK/Skin: significant kyphosis, protruding hardware in thoracic spine with area of 2cm pressure ulcer LE: no calf TTP, no LE edema Results & Data Vital Signs (Past 12 Hours) Vital Signs Temp Pulse Pulse Resp BP BP Pulse Ox 07/18/18 02:50 91 H 18 185/111 H 96 07/18/18 02:42 101 H 18 212/118 H 97 07/18/18 01:48 94 H 20 170/114 H 97 07/18/18 00:10 100 H 18 189/113 H 93 07/17/18 22:33 36.8 C 107 H 20 186/113 H 97 Laboratory Results Abnormal lab results 07/17/18 07/17/18 07/17/18 Range/Units 23:05 23:37 23:37 RDW Std Deviation 47.2 H (36.4-46.3) fL RDW Coeff of Kenia 15.4 H (11.5-14.5) % Neut # (Auto) 7.82 H (1.4-6.5) K/uL Lymph # (Auto) 0.60 L (1.2-3.4) K/uL [place] # (Auto) 1.02 H (0.11-0.59) K/uL Chloride 95 L (98-107) mmol/L Glucose 138 H (70-99) mg/dl Lactate (0.4-2.0) mmol/L Magnesium 2.5 H (1.8-2.4) mg/dl AST 64 H (15-37) U/L Alkaline Phosphatase 140 H (45-117) U/L Urine Appearance Turbid A (Clear) Urine pH >= 9.0 H (4.5-7.5) Urine Ketones Trace H (Negative) Urine Blood 1+ H (Negative) Urine RBC (Auto) 10-30 H (0-4) /hpf U Hyaline Cast (Auto) 5-10 H (0-5) /lpf U Epithel Cells (Auto) >30 H (0-5) /lpf 07/17/18 Range/Units 23:38 RDW Std Deviation (36.4-46.3) fL RDW Coeff of Kenia (11.5-14.5) % Neut # (Auto) (1.4-6.5) K/uL Lymph # (Auto) (1.2-3.4) K/uL [place] # (Auto) (0.11-0.59) K/uL Chloride (98-107) mmol/L Glucose (70-99) mg/dl Lactate 4.1 H* (0.4-2.0) mmol/L Magnesium (1.8-2.4) mg/dl AST (15-37) U/L Alkaline Phosphatase (45-117) U/L Urine Appearance (Clear) Urine pH (4.5-7.5) Urine Ketones (Negative) Urine Blood (Negative) Urine RBC (Auto) (0-4) /hpf U Hyaline Cast (Auto) (0-5) /lpf U Epithel Cells (Auto) (0-5) /lpf Code Status & VTE Plan Code Status Full Supervising Physician Co-Signing Physician Notes Pt seen/examined with resident MD Shanae Nova. Orders and plan of admission formulated with resident. 73 y/o F multiple back surgeries and chronic back pain, chronic dyspnea due to kyphosis, HTN, anxiety, anemia, narcolepsy, hiatal hernia, chronic vomiting/headache of unknown etiology. Presenting with nausea, vomiting and diarrhea. Denies fevers. She is having a persistent issue whereby if she bends over, sits down or sits on the toilet she vomits. She states she vomits multiple times daily but has acutely worsened on the day of admission. The pt was severely hypertensive on arrival with an SBP of 210 OE AAO x 3 S1,2 R CTAB NT, ND No CCE There is what may be protruding hardware over the lower thoracic spine with an overlying shallow ulcer. P: As she describes vomiting when increasing her intracranial pressure, we will obtain an MRI with LUIS FELIPE Treated with IVF and antiemetics which has provided some relief HTN have been partially the result of not tolerating PO and therefore her meds - placed on PRN Hydralazine May need ortho eval for protrusion on thoracic spine - wound care requested Resident Activity Tracking Resident Involvement: Resident Care Provided Care Provided: Adult Hospital Medicine (1) Anemia Anemia type: unspecified type Qualified Code(s): D64.9 - Anemia, unspecified (2) HTN (hypertension) Hypertension type: unspecified Qualified Code(s): I10 - Essential (primary) hypertension
[2018-07-18] MEDS: SODIUM CHLORIDE 0.9% 1000ML 1,000 ML IV SCH ×2 (05:21→14:38)
[2018-07-18] MEDS ORDERED: ACETAMINOPHEN 325 MG TAB PO PRN (05:39)
--- NOTE | 2018-07-18 06:20 | CT Scan Report ---
CT abd pelvis IV con only CT DOSE: 301.37 mGy.cm HISTORY: Pain nausea, vomiting, abdo pain, elevated Lactic Acid TECHNIQUE: Multiaxial CT images of the abdomen and pelvis were performed following the use of intrave nous contrast. A dose lowering technique was utilized adhering to the principles of ALARA. COMPARISON STUDY: 12/28/2017 FINDINGS: Extensive postoperative changes to the lumbar spine pelvis and hips which has been describe d previously. Findings of mild nonspecific small bowel as well as colonic enteritis. No evidence for abscess collec tion or obstructive change. Kidneys negative for hydronephrosis. Fatty replacement of the liver. IMPRESSION: 1. Nonspecific colonic and small bowel enteritis. 2. No evidence for abscess collection or obstruction. 3. Fatty replacement of the liver. 4. Hiatal hernia. The above report was generated using voice recognition software. It may contain grammatical, syntax or spelling errors. Electronically signed by: Kei Brenner M.D. 07/18/2018 6:18 AM
[2018-07-18 06:29] LABS: Basophils # (auto) 0.02 K/uL (0-0.2); Basophils % (auto) 0.2 %; Eosinophils # (auto) 0.01 K/uL (0-0.5); Eosinophils % (auto) 0.1 %; Hematocrit (blood only) 36.5 % (37-47); Hemoglobin 12.1 g/dL (12.0-16.0); Immature Granulocytes # (auto) 0.02 K/uL (0.00-0.02); Immature Granulocytes % (auto) 0.2 %; Lymphocytes # (auto) 0.67 K/uL (1.2-3.4); Lymphocytes % (auto) 8.4 %; Mean Corpuscular Hgb Conc 33.2 g/dL (32-36); Mean Corpuscular Volume 85.7 fL (80-100); Mean Platelet Volume 10.1 fL (7.4-10.4); Monocytes # (auto) 0.98 K/uL (0.11-0.59); Monocytes % (auto) 12.2 %; Neutrophils # (auto) 6.32 K/uL (1.4-6.5); Neutrophils % (auto) 78.9 %; Platelet Count 260 K/uL (130-400); RDW Coefficient of Variation 15.5 % (11.5-14.5); RDW Standard Deviation 48.6 fL (36.4-46.3); Red Blood Count 4.26 M/uL (4.2-5.4); White Blood Count 8.02 K/uL (4.8-10.8)
[2018-07-18 07:02] LABS: Albumin Level 2.9 gm/dl (3.4-5.0); BUN Creatinine Ratio 14.4 (10-20); Calcium 7.8 mg/dl (8.5-10.1); Creatinine Clr Calc Pharmacy 43.4 ml/min; Est GFR (African American) 74.6; Est GFR (Non-African American) 64.3; Potassium 3.6 mmol/L (3.5-5.1)
[2018-07-18 07:07] LABS: Albumin Globulin Ratio 0.9 (0.9-2); Bilirubin,Total 0.6 mg/dl (0.2-1); Globulin 3.3 gm/dl (2.5-4.0); Total Protein 6.2 gm/dl (6.4-8.2)
[2018-07-18] MEDS ORDERED: FERROUS SULFATE 325 MG TAB PO SCH (09:00)
[2018-07-18] MEDS ORDERED: PANTOprazole 40 MG TAB PO SCH (09:00)
[2018-07-18] MEDS ORDERED: DULOXETINE HCL 60 MG CAP PO SCH (09:00)
[2018-07-18] MEDS ORDERED: hydroCHLOROthiazide 25 MG TAB PO SCH (09:00)
[2018-07-18] MEDS: GABAPENTIN 100 MG CAP PO SCH ×2 (09:03→14:38)
[2018-07-18] MEDS ORDERED: GADOBUTROL 65ML VIAL IV PRN (11:36)
--- NOTE | 2018-07-18 11:46 | Magnetic Resonance Report ---
MR brain wo/w con CLINICAL HISTORY: intractable vomiting nausea COMPARISON STUDY: No previous studies for comparison. TECHNIQUE: Utilizing a 1.5 Priscilla magnet and dedicated coil, multiplanar, multiecho imaging of the br ain was performed pre and postcontrast administration. IV administration of 5.8 mL of Gadavist contr ast was uneventful. FINDINGS: Diffusion-weighted images are unremarkable. There are findings of mild age-related cerebellar as well as cerebral atrophy. There is moderate jira developer laith small vessel change throughout the periventricular and deep white matter regions. Postcontrast images are negative for an enhancing lesion. IMPRESSION: 1. No acute process. 2. Moderate rather diffuse chronic small vessel change. 3. Mild age-related atrophy. The above report was generated using voice recognition software. It may contain grammatical, syntax or spelling errors. Electronically signed by: Kei Brenner M.D. 07/18/2018 11:44 AM
--- NOTE | 2018-07-18 16:16 | Discharge Summary ---
Date of Service July 18, 2018 Admission HPI Per Admitting Provider 73yoF with chronic back pain-hx of failed back surgeries x 3 for bulging discs and trauma (fell off horse x 2) with subsequent sob due to postural kyphosis, and chronic vomiting/headache of unknown etiology, HTN, anxiety, anemia, narcolepsy, hiatal hernia. Presented with vomiting x 1 week and 4 episodes of watery diarrhea which started today. Per pt she usually has more frequent but not this watery diarrhea. She reports vomiting 3-4x today every time she took a bite to eat and the last time before coming to the ED it looked like "coffee grounds". Sample was brought to ED and per ED doctor, Dr. Stinson no concern for coffee ground emesis. Stool sample was also brought which was negative for C.diff (pt reported hx of C. diff in the past). Per patient and family, vomiting has been going on for 3.5 years since back surgeries. She vomits every time she has a bowel movement and usually when she is sitting. She also has frequent headaches with these vomits. Occasionally she also has diaphoresis. At the time of exam, she felt better but was very tired and cold. She reported feeling nauseous but not having vomited since arrival in the ED. She did have 2 episodes of diarrhea since arrival. Feels sob (chronically sob due to kyphosis). Has abdominal pain with BMs. Denies any cp, dizziness, dysuria, hematuria, hematochezia, melena Of note: pt appears anxious but she reports from pain of having rods in back and not being comfortable. Pt is on dextroamphetamine for narcolepsy but reports not having any for 1 week due to vomiting. Past Medical History: Hypertension, chronic back pain, anxiety, depression, chronic SOB due to postural kyphosis, anemia, narcolepsy, fibromyalgia, hiatal hernia, infection of lumbar spine, postural kyphosis Past Surgical History: History of back surgery x 3. Social History: , retired, does not smoke cigarettes, does not drink alcohol, does not use drugs. Home Medications: Acetaminophen, dextroamphetamine, duloxetine, ferrous sulfate, gabapentin, hydrochlorothiazide, hydroxyzine HCl, omeprazole, ondansetron HCL, and sennosides. Allergies: Midazolam, vancomycin, daptomycin, fentanyl, gluten, milk. Principal Diagnosis Nausea and vomiting and diarrhea Discharge Exam Constitutional WD/WN, vitals as above Eyes PERRL, conjunctivae normal, anicteric sclerae ENMT external ear and nose normal, oropharynx normal Neck trachea midline, no thyromegaly Respiratory normal respiratory effort, lungs clear to auscultation Cardiovascular RRR, no murmur, no edema Gastrointestinal (Abdomen) normal bowel sounds, soft, nontender, no hepatosplenomegaly Musculoskeletal Extremities: extremities normal to inspection; no cyanosis and no clubbing Skin no rashes, warm and dry Neurologic moves all extremities and awake; no focal motor deficits Psychiatric Orientation: alert and oriented x 3 Eye Contact: good eye contact Speech: + pressured speech Affect: + anxious affect Mood: + anxious mood Discharge Data Allergies Allergy/AdvReac Type Severity Reaction Status Date / Time midazolam Allergy Severe AGRESSIVENESS, Verified 07/17/18 23:02 MEMORY LOSS vancomycin Allergy Severe red man Verified 07/17/18 23:02 syndrome and XENIA daptomycin Allergy Mild RASH Verified 07/17/18 23:02 fentanyl Allergy Vomiting Verified 07/17/18 23:02 gluten AdvReac Unknown SEVERE GI Verified 07/17/18 23:02 DISTRESS milk AdvReac Gastrointestinal Verified 07/17/18 23:02 Upset Consultations None Ordered Studies 07/18/18 00:26 CT abd pelvis IV con only Urgent 07/18/18 10:19 MR brain wo/w con Routine Hospital Course (1) Gastroenteritis: 73yoF with chronic back pain-hx of failed back surgeries x 3 for bulging discs and trauma (fell off horse x 2) with subsequent sob due to postural kyphosis, and chronic vomiting/headache of unknown etiology, HTN, anxiety, anemia, narcolepsy, fibromyalgia, and hiatal hernia. Presented with vomiting x 1 week and 4 episodes of watery diarrhea which started today. Of note, vomiting chronic associated with headaches and appears to be induced with increase in abdominal pressure based on history, started s/p back surgery 3.5 years ago. N/V/D-resolved after receiving IV morphine and ativan here Suspect N/V/D from opioid withdrawal as she admits to "running low" on her oxycodone-has not been filled in about 2 months and she reports having to "make it last." Also may be some component of either gastroparesis or from her hiatal hernia which is fairly large MRI brain negative -Afebrile, mildly tachycardic to 100s on admission which improved, WBC normal -no significant electrolyte derangements -Lactate 4.1 and improved with iVFs to 2.7 and was likely secondary to dehydration -C. diff negative -lipase normal -Abd/pelvis CT: enteritis/enterocolitis, no bowel obstruction, moderate hiatal hernia, mildly heterogenous fatty liver -LFT: AST 64, alk phos 140 and both improved by the next day -Reglan 10mg Q6H PRN for nausea/vomiting was given and had improvement-feels she is really helped by ativan as far as her nausea--> gave a short bridge supply until she can be seen by PCP next week because she missed her last appointment due to being acutely ill -f/u closely with PCP-advised no more opioids would be given -GI initially consulted but cancelled the consult as pt was doing better--> last EGD showed significantly tortuous esophagus, hiatal hernia, and AVM Sob-appears to be chronic, reports secondary to kyphosis/back surgery Denies any chest pain -not needing O2 at time of discharge -Troponin negative HTN: pt hypertensive to 212/118 in the ED - did not take HCTZ prior to admission due to vomiting. Also may have been secondary to benzodiazepene withdrawal as she ran out of ativan -Given dose of labetalol 10mg IV x 1 wit improvement in BP to 162/92 -Continue home HCTZ -gave bridge Rx for ativan to avoid further withdrawal-plan for continued taper as per PCP Chronic Back Pain s/p 3 failed surgeries for bulging discs and fractures; fibromyalgia -Continue home duloxetine and gabapentin -Tylenol prn GERD -Continue home omeprazole Narcolepsy-Held home dextroamphetamine while hospitalized Anxiety -improved with receiving ativan -Continue home hydroxyzine and ativan taper as above Dispo-was much improved and tolerating po prior to discharge--> dc to home with close PCP follow up (2) Acidosis, lactic: (3) HTN (hypertension): (4) Anxiety: (5) Chronic back pain: (6) SOB (shortness of breath): (7) Anemia: (8) Narcolepsy: (9) Fibromyalgia: (10) Hiatal hernia: (11) Postural kyphosis, thoracic region: Total Time Total Time Spent Total Time Spent (In Minutes): >30 min Total Time Includes: Examination of the Patient, Discharge Planning and Medication Reconciliation Discharge Plan Discharge Items Patient Disposition: Home - Self-Care Reason For Visit: VOMITING, DIARRHEA Discharge Diagnosis: Vomiting, diarrhea Condition: Good Discharge Goals: Diagnostic testing, Improve disease control, Learn about illness and Therapeutic intervention Activity: Resume your previous activity Lifting: None Bathing: No limitations Exercise/Sports: As tolerated Non-emergency contact: Primary Care Provider Call non-emergency contact if: you have any medication questions, your symptoms worsen, your pain is not controlled, your pain is worsening, your pain is unusual for you and your pain is concerning for you Follow-up/Referrals: Glo Hoang, [Primary Care Provider] - (Please reschedule follow-up visit within 1 week.) Diet: Regular Diet Comment: Eat small meals frequently throughout the day Addtl Provider Instructions: You were admitted with nausea and vomiting. The vomiting is likely due to your large hiatal hernia. You should take ranitidine 150 mg twice daily to reduce the amount of acid reflux that you have which is contributing to your vomiting. You had an MRI of the brain which was normal. As for your diarrhea, this may be due to running low on your oxycodone and withdrawal. Your blood pressure was very high which is also likely due to withdrawal from your lorazepam. You were given a one-week supply of Lorazepam as part of your taper down as per your primary care physician's wishes. Please follow-up with your primary care physician within 1 week to determine what dose of Lorazepam you will continue on to next. I suggested that you start on a new pill called amitriptyline (Elavil) that you take at bedtime. This is a great medication for bowel issues, chronic pain, and also helps with sleep. Please start with 1/2 pill at bedtime for 1 week and then increase to 1 pill at bedtime if you are tolerating it. Please follow-up with your primary care physician within 1 week. Please make the appointment with pain management as suggested by your primary care physician. Prescriptions: New ranitidine HCl 150 mg tablet 150 mg PO BID Qty: 60 RF: 0 amitriptyline 25 mg tablet 12.5 mg PO HS Qty: 30 RF: 0 Continued hydrochlorothiazide 25 mg Tablet 25 mg PO DAILY RF: 0 ondansetron HCl 8 mg tablet 8 mg PO UD PRN (Reason: Nausea) RF: 0 omeprazole 40 mg capsule,delayed release(DR/EC) 40 mg PO BID RF: 0 dextroamphetamine 10 mg tablet 20 mg PO QAM RF: 0 hydroxyzine HCl 25 mg tablet 25 mg PO Q8H PRN (Reason: itching) Qty: 20 RF: 0 ferrous sulfate 325 mg (65 mg iron) Tablet 325 mg PO BID RF: 0 acetaminophen [Mapap (acetaminophen)] 325 mg Tablet 650 mg PO Q4H PRN (Reason: pain) Qty: 30 RF: 0 gabapentin 100 mg Capsule 100 mg PO TID Qty: 90 RF: 0 duloxetine 60 mg Capsule,Delayed Release(Dr/Ec) 60 mg PO QAM Qty: 30 RF: 0 oxycodone 5 mg tablet 5 mg PO BID PRN (Reason: Pain) RF: 0 lorazepam 0.5 mg Tablet 0.5 mg PO HS PRN (Reason: Sleep) Qty: 7 RF: 0 Discontinued sennosides [senna] 8.6 mg Tablet 8.6 mg PO DAILY RF: 0 Stand-Alone Forms: [facility]charge Orders: Discharge Order (Routine); Ordered 07/18/18 Ordered By: Roro Pascual Admission Data Admit Date/Time: 07/18/18 02:59 Attending Provider: Roro Pascual Admit Provider: Michael Valentin Primary Care Provider: Glo Hoang Other Providers: Michael Valentin Service: Telemetry Medical Other Interventions: Discharge Summary Assessment (RN) Last Done: 07/18/18 16:39 Pending Studies at Discharge: No DC Date/Time DO NOT enter until pt leaves facility: 07/18/18 18:56
[2018-07-18] MEDS ORDERED: SIMETHICONE 80 MG CHEW PO ONE (17:24)
--- NOTE | 2018-07-18 20:34 | Consultation Report ---
DATE OF CONSULTATION: 07/18/2018 GASTROENTEROLOGY CONSULTATION ATTENDING PHYSICIAN: Dr. Roberts. CONSULTING PHYSICIAN: Dr. Frank Parry. REASON FOR CONSULTATION: Vomiting, diarrhea, enteritis. HISTORY OF PRESENT ILLNESS: Jolene Petersen is a 73-year-old female who presented to the Department of Emergency Medicine on 07/17 with complaints of vomiting, which had occurred for approximately a week. She stated that since her failed back surgery 3-1/2 years ago, she has had persistent vomiting. She also noted being diaphoretic and off balance and did have some diarrhea as well. She denied any overt GI blood loss in the Department of Emergency Medicine. She did undergo laboratory testing at that time, which revealed a H and H of 14.2 and 41.1, white blood cell count was 9.51. Her liver panel showed a slightly elevated AST of 64 and an alkaline phosphatase of 140. Remainder of her liver panel was unremarkable. Stool testing was negative for C. diff. CT imaging in the Department of Emergency Medicine showed nonspecific colonic and small bowel enteritis, but no evidence for abscess collection or obstruction. There is fatty replacement of the liver and a hiatal hernia. She was subsequently admitted. At the time that I saw the patient today, she was eating a normal diet. She stated that her pain had improved significantly and she had had no further episodes of vomiting or diarrhea since her arrival. Of note, the patient was seen by Dr. Mireles on 12/05/2017 while she was hospitalized and did undergo both an EGD and a colonoscopy. The EGD showed a hiatal hernia and angioectasia in the stomach, which was treated with APC therapy and duodenal biopsies, which were negative. Her colonoscopy on the same day showed transverse polyp x2, one of which was recovered. It was noted to be a tubular adenoma of approximately 1 cm in size and followup recommendations were given to the patient for repeat colonoscopy by Dr. Mireles. She was also noted to have internal hemorrhoids on the colonoscopy, though no other findings. Currently, she denies any abdominal pain. She states that she has had persistent vomiting over the past 3-1/2 to 4 years following a back surgery and has had an extensive workup for this in the past. She denies any further diarrhea. She further denies any hematemesis, melena or hematochezia. Repeat laboratory studies from this morning showed improvement in her lactic acid level as well as improvements in her AST and alkaline phosphatase. She feels quite well at present and denies any further complaints. PAST MEDICAL HISTORY: Significant for hypertension, Trung disease, chronic back pain, fracture of the right femur, anxiety, depression, gastroparesis, anemia, narcolepsy, fibromyalgia, Lyme disease, chronic fatigue syndrome, history of gastric ulcer, hiatal hernia, lumbar stenosis with neurogenic claudication, infection of the lumbar spine, postural kyphosis, mitral valve prolapse, history of C. diff infection. PAST SURGICAL HISTORY: Includes back surgery approximately 3-1/2 to 4 years ago. ALLERGIES: MIDAZOLAM, VANCOMYCIN, DAPTOMYCIN, FENTANYL, GLUTEN AND MILK. MEDICATIONS: At the present time include Neurontin 100 mg p.o. t.i.d., Protonix 40 mg p.o. b.i.d., Cymbalta 60 mg p.o. q.a.m. P.r.n. medications include hydroxyzine, Tylenol. SOCIAL HISTORY: She is . She denies any tobacco, alcohol or illicit drug use. FAMILY HISTORY: Negative for GI malignancy or inflammatory bowel disease. REVIEW OF SYSTEMS: Negative x12 system review other than the pertinent positives listed in the HPI. PHYSICAL EXAMINATION: VITAL SIGNS: Temp 36.7, pulse 89, respirations 18, blood pressure 144/74, pulse ox 94% on room air. GENERAL: She is awake, cooperative, sitting up in her bed, eating lunch, in no acute distress. HEAD: Normocephalic, atraumatic. EYES: Pupils equal, round. Extraocular muscles are intact. ENT: External evaluation of ears and nose is normal. Oropharynx is clear. NECK: Soft, supple. CHEST: Clear to auscultation bilaterally. CARDIOVASCULAR SYSTEM: Regular rate and rhythm. ABDOMEN: Soft, nontender, nondistended. Positive bowel sounds. There is no appreciable hepatosplenomegaly. EXTREMITIES: No clubbing, cyanosis, or edema. IMPRESSION: A 73-year-old female with chronic vomiting syndrome who presented with an acute exacerbation with diarrhea and abdominal pain which has subsequently resolved. PLAN: I would recommend that the patient be continued on her current therapy with Protonix 40 mg p.o. b.i.d. I would recommend that she follow up as an outpatient with Dr. Mireles for further evaluation of her GI tract. I would continue her present diet and I will follow her clinical course and make further recommendations as needed. Once again, thanks for allowing me to participate in the care of this patient. If you have any further questions, please do not hesitate in contacting me.
== END 2018-07-18 18:56 | disposition home or self-care (01) ==
LOC: 2W 22:21 → ED 22:21 → SUATTDRO 07-18 02:59 → 2W 07-18 03:20

== ENCOUNTER 2018-09-08 18:44 | Inpatient (IN) ==
[2018-09-08] MEDS ORDERED: SODIUM CHLORIDE 0.9% 1000ML 1,000 ML IV ONE ×2 (19:07→20:01)
[2018-09-08] MEDS ORDERED: ONDANSETRON INJ 2 MG/ML 2 ML VIAL IV STA ×2 (19:07→20:01)
[2018-09-08] MEDS ORDERED: MoRPHine SULFATE 2 MG/ML CARP IV STA ×2 (19:12→20:01)
[2018-09-08 19:24] LABS: Basophils # (auto) 0.01 K/uL (0-0.2); Basophils % (auto) 0.1 %; Eosinophils # (auto) 0.01 K/uL (0-0.5); Eosinophils % (auto) 0.1 %; Hematocrit (blood only) 43.7 % (37-47); Hemoglobin 14.6 g/dL (12.0-16.0); Immature Granulocytes # (auto) 0.02 K/uL (0.00-0.02); Immature Granulocytes % (auto) 0.2 %; Lymphocytes # (auto) 0.33 K/uL (1.2-3.4); Lymphocytes % (auto) 3.3 %; Mean Corpuscular Hgb Conc 33.4 g/dL (32-36); Mean Corpuscular Volume 87.4 fL (80-100); Monocytes # (auto) 0.88 K/uL (0.11-0.59); Monocytes % (auto) 8.7 %; Neutrophils # (auto) 8.85 K/uL (1.4-6.5); Neutrophils % (auto) 87.6 %; Platelet Count 184 K/uL (130-400); RDW Coefficient of Variation 15.9 % (11.5-14.5); RDW Standard Deviation 50.8 fL (36.4-46.3)
[2018-09-08 19:44] LABS: Alanine Aminotransferase 53 U/L (12-78); Albumin Level 3.7 gm/dl (3.4-5.0); Aspartate Aminotransferase 101 U/L (15-37); BUN Creatinine Ratio 9.6 (10-20); Blood Urea Nitrogen 10 mg/dl (7-18); Calcium 9.4 mg/dl (8.5-10.1); Carbon Dioxide 24 mmol/L (21-32); Chloride 97 mmol/L (98-107); Creatinine Clr Calc Pharmacy 41.5 ml/min; Est GFR (African American) 65.6; Est GFR (Non-African American) 56.6; Glucose 96 mg/dl (70-99); Potassium 3.5 mmol/L (3.5-5.1); Sodium 137 mmol/L (136-145)
[2018-09-08 19:49] LABS: Albumin Globulin Ratio 0.9 (0.9-2); Alkaline Phosphatase 155 U/L (45-117); Bilirubin,Total 1.1 mg/dl (0.2-1); Total Protein 7.7 gm/dl (6.4-8.2); Troponin I < 0.015 ng/ml (0-0.045)
--- NOTE | 2018-09-08 19:57 | Emergency Department Note ---
Entered by Berto Us acting as a scribe for History of Present Illness General Chief complaint: Vomiting Stated complaint: VOMITING Time Seen by Provider: 09/08/18 18:53 Source: patient History of Present Illness Onset (ago): week(s) (2-3) Location: abdomen Pain Consistency: + other (worsening) Maximum Pain Intensity: 9 Quality: + other (vomiting) Associated symptoms: + other (Positive for abdominal pain, decreased appetite, and diarrhea.) The patient is a 73 year old female who presents to the emergency department with complaints of worsening vomiting beginning 2-3 weeks ago. The patient states that she had back surgery 3.5 years ago, and she notes that she has been persistently vomiting since. She reports that she developed abdominal pain and worsening vomiting 2-3 weeks ago. She also complains of a decreased appetite and diarrhea. The patient states that she has been taking one Oxycontin pill a day, but she notes that it has recently been decreased. Home Medications Home Medications Medication Instructions Recorded Confirmed Type dextroamphetamine 20 mg PO QAM 12/03/17 09/08/18 History omeprazole 40 mg PO BID 12/03/17 09/08/18 History hydroxyzine HCl 25 mg PO Q8H PRN #20 tab 12/05/17 09/08/18 Rx ferrous sulfate 325 mg PO BID 12/28/17 09/08/18 History acetaminophen [Mapap 650 mg PO Q4H PRN #30 tab 01/05/18 09/08/18 Rx (acetaminophen)] hydrochlorothiazide 25 mg PO DAILY 07/04/18 09/08/18 History oxycodone 5 mg PO BID PRN 07/18/18 09/08/18 History ranitidine HCl 150 mg PO BID #60 tab 07/18/18 09/08/18 Rx fluoxetine 10 mg tablet 10 mg PO DAILY #30 tab 07/27/18 09/08/18 Rx prochlorperazine maleate 5 mg 5 mg PO Q8H PRN #10 tab 07/27/18 09/08/18 Rx tablet amitriptyline 25 mg PO QPM 09/08/18 09/08/18 History dextroamphetamine 10 mg PO TID PRN 09/08/18 09/08/18 History mirtazapine 15 mg tablet 15 mg PO HS #30 tab 09/12/18 Rx Allergies Allergy/AdvReac Type Severity Reaction Status Date / Time midazolam Allergy Severe AGRESSIVENESS, Verified 09/08/18 19:31 MEMORY LOSS vancomycin Allergy Severe red man Verified 09/08/18 19:31 syndrome and XENIA daptomycin Allergy Mild RASH Verified 09/08/18 19:31 fentanyl Allergy Vomiting Verified 09/08/18 19:31 gluten AdvReac Unknown SEVERE GI Verified 09/08/18 19:31 DISTRESS egg AdvReac Verified 09/11/18 12:51 milk AdvReac Gastrointestinal Verified 09/08/18 19:31 Upset Past Med/Surg History Medical History Nausea and vomiting (Chronic) Hypertension (Chronic) Trung's disease (Chronic) Chronic back pain Anxiety and depression (Chronic) Gastroparesis Anemia (Acute) Narcolepsy (Chronic) Fibromyalgia (Chronic) H/O Trung thyroiditis (Chronic) H/o Lyme disease (Chronic) Failed back surgical syndrome (Chronic) Chronic fatigue syndrome (Chronic) Hx of gastric ulcer (Chronic) Hiatal hernia (Chronic) Lumbar stenosis with neurogenic claudication (Chronic) Postural kyphosis, thoracic region Celiac disease Clostridium difficile infection Infection of lumbar spine MVP (mitral valve prolapse) Trochanteric fracture of right femur Surgical History H/O lumpectomy (Acute) History of back surgery (Chronic) Social History Preferred Language: Turkmen Communication Ability: Effective Visual Impairment: No Limitations Beliefs That Will Affect Care: None marital status: Current Living Situation: Spouse current occupational status: retired Feels Safe at Home: Yes Smoking Status: Never smoker Second Hand Exposure: No Hx Alcohol Use: No Hx Substance Use: No Review of Systems See HPI for pertinent positives & negatives. and A total of 10 systems reviewed and were otherwise negative Physical Exam Vital Signs Vital Signs - 24 hr 09/08/18 18:49 09/08/18 20:25 Temperature 98.1 F Temperature Source Oral Sepsis Recent Fever Within 48 Hours No Sepsis New/Unexplained Change in Mental Status No Sepsis Action Taken by Nursing No Action Required Pulse Rate 116 H Pulse Rate [Right Finger] 111 H Pulse Rhythm Irregular Pulse Rhythm [Right Finger] Regular Pulse Strength Normal Pulse Strength [Right Finger] Normal Respiratory Rate 18 18 Respiratory Effort / Characteristics Non-Labored Non-Labored Respiratory Depth Normal Normal Respiratory Pattern Regular Regular Blood Pressure 146/107 H Blood Pressure [Left Arm] 164/107 H Blood Pressure Mean 120 Blood Pressure Mean [Left Arm] 126 Blood Pressure Position Lying Blood Pressure Position [Left Arm] Lying Pulse Oximetry 95 97 Oxygen Delivery Method Room Air Room Air General: Mildly ill appearing older female in no acute distress, holding emesis bag. HEENT: Normal cephalic atraumatic. Pupils are equal round and reactive to light. Extraocular movements are intact. Oropharynx is pink with moist mucous membranes. No swelling of the mouth lips or tongue. Neck: Supple with a midline trachea. No meningeal signs or stiffness, no JVD or bruits. No Stridor. Chest: Clear to auscultation bilaterally. No wheezes or rhonchi. No increased work of breathing. No respiratory distress. Heart: regular rhythm, mild tachycardia. Abdomen: Soft, nondistended without rebound guarding or rigidity, mild tenderness to epigastric area. Extremities: No cyanosis clubbing or edema. No calf tenderness or asymmetry Spine/Back. Non tender to palpation. No CVA tenderness Skin: Good turgor without rashes. Neurologic exam: Cranial nerves two through 12 are intact. Motor and sensation are intact and symmetrical throughout. Course 1853: The patient was evaluated in room B9. A complete history and physical exam was performed. 1917: I reevaluated and updated the patient. 2001: I rechecked the patient. She wanted more pain and nausea medication. I ordered more fluids. The patient's lipase was significantly elevated. I ordered a CT. 2206: Upon reevaluation, the patient is stable. I discussed the findings and the treatment plan with the patient. She expresses agreement and understanding. I spoke with Dr. Rahman, the resident road freight conductor for [facility]. The patient will be evaluated for further management. Consultations Consultation #1: I reviewed the patient's case with Dr. Rahman, the resident road freight conductor for [facility]. He will evaluate the patient for further management. Time: 22:07 Administered Medications Discontinued Medications Amitriptyline HCl (Elavil) 25 mg PO QPM AYAKA Stop: 10/09/18 20:59 Last Admin: 09/10/18 20:38 Dose: 25 mg Documented by: [id number] Admin: 09/09/18 21:13 Dose: 25 mg Documented by: [id number] Enoxaparin Sodium (Lovenox) 40 mg SQ Q24H [facility] Stop: 10/09/18 00:31 Last Admin: 09/11/18 07:37 Dose: Not Given Documented by: [id number] Admin: 09/10/18 08:10 Dose: Not Given Documented by: [id number] Admin: 09/09/18 09:53 Dose: Not Given Documented by: [id number] Admin: 09/09/18 01:29 Dose: Not Given Documented by: [id number] Fluoxetine HCl (Prozac) 10 mg PO DAILY [facility] Stop: 10/09/18 08:59 Last Admin: 09/11/18 07:37 Dose: 10 mg Documented by: [id number] Admin: 09/10/18 08:09 Dose: 10 mg Documented by: [id number] Admin: 09/09/18 08:04 Dose: 10 mg Documented by: [id number] Hydrochlorothiazide (Hctz) 25 mg PO DAILY [facility] Stop: 10/09/18 08:59 Last Admin: 09/11/18 07:37 Dose: 25 mg Documented by: [id number] Admin: 09/10/18 08:10 Dose: 25 mg Documented by: [id number] Admin: 09/09/18 08:04 Dose: 25 mg Documented by: [id number] Hydromorphone HCl (Dilaudid) Confirm Administered Dose 0.5 mg .ROUTE .STK-MED ONE Stop: 09/08/18 23:41 Last Admin: 09/08/18 23:46 Dose: 0.5 mg Documented by: [id number] Hydromorphone HCl (Dilaudid) 0.5 mg IV Q3H PRN PRN Reason: Pain Stop: 09/23/18 00:31 Last Admin: 09/09/18 21:24 Dose: 0.5 mg Documented by: [id number] Hydroxyzine HCl (Vistaril) 25 mg PO Q8H PRN PRN Reason: itching Stop: 10/09/18 00:31 Last Admin: 09/11/18 09:03 Dose: 25 mg Documented by: [id number] Admin: 09/10/18 23:57 Dose: 25 mg Documented by: [id number] Admin: 09/09/18 21:12 Dose: 25 mg Documented by: [id number] Admin: 09/09/18 10:01 Dose: 25 mg Documented by: [id number] Admin: 09/09/18 01:33 Dose: 25 mg Documented by: [id number] Sodium Chloride (Nss 1000ml) 1,000 mls @ 999 mls/hr IV .Q1H1M ONE Stop: 09/08/18 20:07 Last Infusion: 09/08/18 20:46 Dose: 0 mls/hr Documented by: [id number] Admin: 09/08/18 19:32 Dose: 999 mls/hr Documented by: [id number] Sodium Chloride (Nss 1000ml) 1,000 mls @ 999 mls/hr IV .Q1H1M ONE Stop: 09/08/18 21:01 Last Infusion: 09/08/18 21:43 Dose: 0 mls/hr Documented by: [id number] Admin: 09/08/18 20:24 Dose: 999 mls/hr Documented by: [id number] Dextrose/Lactated Ringer's (D5w And Lactated Ringers) 1,000 mls @ 150 mls/hr IV .Q6H40M AYAKA Stop: 09/09/18 20:31 Last Infusion: 09/09/18 22:10 Dose: 0 mls/hr Documented by: [id number] Admin: 09/09/18 14:35 Dose: 150 mls/hr Documented by: [id number] Infusion: 09/09/18 14:13 Dose: 0 mls/hr Documented by: [id number] Admin: 09/09/18 08:02 Dose: 150 mls/hr Documented by: [id number] Infusion: 09/09/18 08:02 Dose: 0 mls/hr Documented by: [id number] Admin: 09/09/18 01:02 Dose: 150 mls/hr Documented by: [id number] Ioversol (Optiray 320 100ml) 93 ml IV ONCE PRN PRN Reason: Interaction Checking Stop: 09/12/18 20:05 Last Admin: 09/08/18 20:07 Dose: 93 ml Documented by: [id number] Mirtazapine (Remeron) 15 mg PO HS AYAKA Stop: 10/09/18 20:59 Last Admin: 09/10/18 20:39 Dose: 15 mg Documented by: [id number] Admin: 09/09/18 21:14 Dose: 15 mg Documented by: [id number] Morphine Sulfate (Morphine Sulfate) 2 mg IV NOW STA Stop: 09/08/18 19:13 Last Admin: 09/08/18 19:36 Dose: 2 mg Documented by: [id number] Morphine Sulfate (Morphine Sulfate) 2 mg IV NOW STA Stop: 09/08/18 20:02 Last Admin: 09/08/18 20:24 Dose: 2 mg Documented by: [id number] Ondansetron HCl (Zofran) 4 mg IV NOW STA Stop: 09/08/18 19:08 Last Admin: 09/08/18 19:32 Dose: 4 mg Documented by: [id number] Ondansetron HCl (Zofran) 4 mg IV NOW STA Stop: 09/08/18 20:02 Last Admin: 09/08/18 20:24 Dose: 4 mg Documented by: [id number] Pantoprazole Sodium (Protonix) 40 mg PO BID [facility] Stop: 10/09/18 08:59 Last Admin: 09/11/18 07:37 Dose: 40 mg Documented by: [id number] Admin: 09/10/18 20:38 Dose: 40 mg Documented by: [id number] Admin: 09/10/18 08:09 Dose: 40 mg Documented by: [id number] Admin: 09/09/18 21:13 Dose: 40 mg Documented by: [id number] Admin: 09/09/18 08:03 Dose: 40 mg Documented by: [id number] Potassium Chloride (Klor-Con M20) 20 meq PO Q2H [facility] Stop: 09/09/18 13:16 Last Admin: 09/09/18 13:06 Dose: 20 meq Documented by: [id number] Admin: 09/09/18 12:05 Dose: 20 meq Documented by: [id number] Admin: 09/09/18 10:00 Dose: 20 meq Documented by: [id number] Potassium Chloride (Klor-Con M20) 20 meq PO Q2H AYAKA Stop: 09/10/18 12:01 Last Admin: 09/10/18 13:59 Dose: 20 meq Documented by: [id number] Admin: 09/10/18 13:58 Dose: 20 meq Documented by: [id number] Prochlorperazine (Compazine) Confirm Administered Dose 10 mg .ROUTE .STK-MED ONE Stop: 09/08/18 23:44 Last Admin: 09/08/18 23:45 Dose: 5 mg Documented by: [id number] Ranitidine HCl (Zantac) 150 mg PO BID [facility] Stop: 10/09/18 08:59 Last Admin: 09/11/18 07:37 Dose: 150 mg Documented by: [id number] Admin: 09/10/18 20:39 Dose: 150 mg Documented by: [id number] Admin: 09/10/18 08:09 Dose: 150 mg Documented by: [id number] Admin: 09/09/18 21:14 Dose: 150 mg Documented by: [id number] Admin: 09/09/18 08:04 Dose: 150 mg Documented by: [id number] Zolpidem Tartrate (Ambien) 5 mg PO HS PRN PRN Reason: Sleep Stop: 10/09/18 01:57 Last Admin: 09/10/18 23:57 Dose: 5 mg Documented by: [id number] Admin: 09/09/18 23:53 Dose: 5 mg Documented by: [id number] Zolpidem Tartrate (Ambien) Confirm Administered Dose 5 mg .ROUTE .STK-MED ONE Stop: 09/09/18 02:12 Last Admin: 09/09/18 02:13 Dose: 5 mg Documented by: [id number] Medical Decision Making Differential Diagnosis Differential diagnoses include: dehydration, GI illness, electrolyte/metabolic abnormalities, bowel obstruction, and infection. Medical Records Attestation: I reviewed the patient's medical records. Home Medications Current Medication List: was personally reviewed by me Laboratory Data Attestation: I reviewed the patient's lab results. Result diagrams: 09/11/18 07:49 09/11/18 07:49 Lab Results 09/08/18 09/08/18 09/08/18 Range/Units 19:07 19:07 21:37 WBC 10.10 (4.8-10.8) K/uL RBC 5.00 (4.2-5.4) M/uL Hgb 14.6 (12.0-16.0) g/dL Hct 43.7 (37-47) % MCV 87.4 (80-100) fL MCH 29.2 (25-34) pg MCHC 33.4 (32-36) g/dL RDW Std Deviation 50.8 H (36.4-46.3) fL RDW Coeff of Kenia 15.9 H (11.5-14.5) % Plt Count 184 (130-400) K/uL MPV 10.0 (7.4-10.4) fL Immature Gran % (Auto) 0.2 % Neut % (Auto) 87.6 % Lymph % (Auto) 3.3 % Giles % (Auto) 8.7 % Eos % (Auto) 0.1 % Baso % (Auto) 0.1 % Immature Gran # (Auto) 0.02 (0.00-0.02) K/uL Neut # (Auto) 8.85 H (1.4-6.5) K/uL Lymph # (Auto) 0.33 L (1.2-3.4) K/uL Giles # (Auto) 0.88 H (0.11-0.59) K/uL Eos # (Auto) 0.01 (0-0.5) K/uL Baso # (Auto) 0.01 (0-0.2) K/uL Sodium 137 (136-145) mmol/L Potassium 3.5 (3.5-5.1) mmol/L Chloride 97 L (98-107) mmol/L Carbon Dioxide 24 (21-32) mmol/L Anion Gap 16.0 H (3-11) BUN 10 (7-18) mg/dl Creatinine 1.00 (0.6-1.2) mg/dl Est Cr Clr Drug Dosing 41.5 ml/min Est GFR ( Amer) 65.6 Est GFR (Non-Af Amer) 56.6 BUN/Creatinine Ratio 9.6 L (10-20) Glucose 96 (70-99) mg/dl Calcium 9.4 (8.5-10.1) mg/dl Total Bilirubin 1.1 H (0.2-1) mg/dl AST 101 H (15-37) U/L ALT 53 (12-78) U/L Alkaline Phosphatase 155 H (45-117) U/L Troponin I < 0.015 (0-0.045) ng/ml Total Protein 7.7 (6.4-8.2) gm/dl Albumin 3.7 (3.4-5.0) gm/dl Globulin 4.0 (2.5-4.0) gm/dl Albumin/Globulin Ratio 0.9 (0.9-2) Lipase 89139 H (73-393) U/L Urine Color Yellow Urine Appearance Clear (Clear) Urine pH 5.5 (4.5-7.5) Ur Specific [place] > 1.045 H (1.000-1.030) Urine Protein 1+ H (Negative) Urine Glucose (UA) Negative (Negative) Urine Ketones 2+ H (Negative) Urine Blood 3+ H (Negative) Urine Nitrite Negative (Negative) Urine Bilirubin Negative (Negative) Urine Urobilinogen Negative (Negative) Ur Leukocyte Esterase Negative (Negative) Urine WBC (Auto) 5-10 H (0-5) /hpf Urine RBC (Auto) >30 H (0-4) /hpf U Hyaline Cast (Auto) 10-30 H (0-5) /lpf U Epithel Cells (Auto) >30 H (0-5) /lpf Urine Bacteria (Auto) Negative (Negative) Imaging Data Radiologist's Impression: Radiology results as stated below per my review and the radiologist's interpretation: CT abd pelvis IV con only FINDINGS: 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 Lung bases: Normal heart size. No pericardial or pleural effusion. Patchy bandlike opacities at the lower lobes likely atelectasis or scarring similar to prior exam. Liver: Normal morphology. Density suggestive of hepatic steatosis. Irregular hypoenhancement centrally within the liver is new and/or significantly worsened from prior. The left portal vein is diminutive as on prior exam. Biliary: No intrahepatic or extrahepatic biliary ductal dilatation. The gallbladder is distended to a significantly greater degree than on prior exam. There is no gross evidence of tension. No gallbladder wall thickening. Pancreas: Mild parenchymal atrophy of the pancreas with development of significant peripancreatic fat stranding extending from the pancreatic head to the tail. Surrounding fluid in the retroperitoneal space throughout the periduodenal region as well as tracking to the splenic flexure of the colon and splenic hilum and inferiorly along the anterior pararenal spaces. No parenchymal collection is evident. Spleen: Normal. Adrenal glands: Normal. Kidneys and ureters: Normal. No hydronephrosis. Bladder: Incompletely evaluated secondary to underdistention. Pelvic organs: Uterus and ovaries normal. Bowel: Mild wall thickening of the splenic flexure of the colon. The appendix is normal. No bowel obstruction. Moderate sliding type hiatal hernia. The herniated portion of the stomach is slightly folded upon itself without evidence of obstruction to suggest volvulus. Peritoneal cavity: Trace free fluid in the pelvis. No free intraperitoneal gas. Extensive retroperitoneal fluid as mentioned. Lymph nodes: No enlarged lymph nodes in the abdomen or pelvis. Vasculature: Aorta and IVC patent and normal in caliber. Abdominal wall: Normal. Musculoskeletal: Degenerative changes of the spine. Osteopenia. Extensive thoracolumbar fusion hardware with laminectomy defects and extension into the p patricia. Iliac screws are unchanged in position. Intramedullary nail fixation of the right femur. Severe compression fracture of L3. Compression deformity of T11, unchanged. IMPRESSION: 1. Moderate to severe acute interstitial edematous pancreatitis. Acute peripancreatic fluid. No convincing evidence of parenchymal necrosis or an acute necrotic collection at this time. 2. Distention of the gallbladder without other evidence to suggest cholecystitis. This may be a secondary effect of pancreatitis. 3. Interval development of significant hypoenhancement centrally within the liver, which primarily raises concern for infarct or biliary necrosis. Vasculature is grossly patent. This is indeterminate it would be better evaluated with MRI. 4. Moderate sliding type hiatal hernia. Electronically signed by: Shad Francis M.D. 09/08/2018 8:28 PM ECG Data Attestation: I personally reviewed and interpreted this ECG as follows: Indication: vomiting Rate (beats per minute): 119 Rhythm: sinus tachycardia Findings: no PAC, no PVC, no ST depression and no ST elevation Comparison ECG Date: from (07/17/2018) Change: the following changes noted (rate has increased) Additional Comments: Poor baseline. Blood Pressure Blood Pressure Findings: Elevated blood pressure Blood Pressure Disposition: further management by hospitalist [facility] Narrative This patient comes in as described above she is complains of epigastric pain and vomiting. This is been going on for 3 years she tells me. She has been admitted in the past for this she does have nausea vomiting and diarrhea. She has been on chronic pain medicine she is on OxyIR 1 pill a day. There could be a withdrawal component even. IV access established and she was hydrated with IV normal saline. Her son is at the bedside and she did not drive she was given IV morphine as well as IV Zofran. Multiple blood testing was obtained at also ordered a CAT scan of her abdomen and as well as an EKG and troponin to rule out a cardiac event as well. I have reviewed her old records. She has no significant electrolyte or metabolic abnormals however her lipase is significantly elevated at the 17,000 range. I did do a CAT scan and she does have a significant pancreatitis as well on CAT scan. She did receive additional IV morphine IV Zofran. She has nothing to suggest a cardiac event. She has no significant arrhythmia. She feels better but given her pancreatitis I do think she needs to be admitted/observe for further inpatient treatment and evaluation. Impression & Plan Pancreatitis, Vomiting, Epigastric pain, Weakness Discharge Plan Visit Data *Final* Discharge Date/Time: 09/08/18 23:47 Chief Complaint: Vomiting Stated Complaint: VOMITING ED Provider: Kenn Parker Discharge Problem: Pancreatitis, Vomiting, Epigastric pain, Weakness Patient Disposition: Admitted As Inpatient Discharge Instructions Interventions: ED Discharge Assessment Last Done: 09/08/18 23:47 The scribe's documentation has been prepared under my direction and personally reviewed by me in its entirety. I confirm that the note above accurately reflects all work, treatment, procedures, and medical decision making performed by me.
[2018-09-08] MEDS ORDERED: IOVERSOL 100ml IV PRN (20:06)
--- NOTE | 2018-09-08 20:29 | CT Scan Report ---
CT abd pelvis IV con only CLINICAL HISTORY: 73 years-old Female presenting with vomiting, eval for pancreatitis. TECHNIQUE: Multidetector CT of the abdomen and pelvis was performed after the administration of intra venous contrast. IV contrast: 93 mL of Optiray 320. One or more dose lowering techniques were used co nsistent with the principles of ALARA (as low as reasonably achievable), including automatic exposure control, mA or kV adjustment to individual patient size, and/or use of iterative reconstruction. COMPARISON: 07/18/2018. CT DOSE (mGy.cm): The estimated cumulative dose is 281.86 mGy.cm. FINDINGS: Attic Blower topogram: Orthopedic hardware. Lung bases: Normal heart size. No pericardial or pleural effusion. Patchy bandlike opacities at the l ower lobes likely atelectasis or scarring similar to prior exam. Liver: Normal morphology. Density suggestive of hepatic steatosis. Irregular hypoenhancement centrall y within the liver is new and/or significantly worsened from prior. The left portal vein is diminutiv e as on prior exam. Biliary: No intrahepatic or extrahepatic biliary ductal dilatation. The gallbladder is distended to a significantly greater degree than on prior exam. There is no gross evidence of tension. No gallbladd er wall thickening. Pancreas: Mild parenchymal atrophy of the pancreas with development of significant peripancreatic fat stranding extending from the pancreatic head to the tail. Surrounding fluid in the retroperitoneal s pace throughout the periduodenal region as well as tracking to the splenic flexure of the colon and s plenic hilum and inferiorly along the anterior pararenal spaces. No parenchymal collection is evident . Spleen: Normal. Adrenal glands: Normal. Kidneys and ureters: Normal. No hydronephrosis. Bladder: Incompletely evaluated secondary to underdistention. Pelvic organs: Uterus and ovaries normal. Bowel: Mild wall thickening of the splenic flexure of the colon. The appendix is normal. No bowel obs truction. Moderate sliding type hiatal hernia. The herniated portion of the stomach is slightly folde d upon itself without evidence of obstruction to suggest volvulus. Peritoneal cavity: Trace free fluid in the pelvis. No free intraperitoneal gas. Extensive retroperito renu fluid as mentioned. Lymph nodes: No enlarged lymph nodes in the abdomen or pelvis. Vasculature: Aorta and IVC patent and normal in caliber. Abdominal wall: Normal. Musculoskeletal: Degenerative changes of the spine. Osteopenia. Extensive thoracolumbar fusion hardwa re with laminectomy defects and extension into the pelvis. Iliac screws are unchanged in position. In tramedullary nail fixation of the right femur. Severe compression fracture of L3. Compression deformi ty of T11, unchanged. IMPRESSION: 1. Moderate to severe acute interstitial edematous pancreatitis. Acute peripancreatic fluid. No conv incing evidence of parenchymal necrosis or an acute necrotic collection at this time. 2. Distention of the gallbladder without other evidence to suggest cholecystitis. This may be a seco ndary effect of pancreatitis. 3. Interval development of significant hypoenhancement centrally within the liver, which primarily r aises concern for infarct or biliary necrosis. Vasculature is grossly patent. This is indeterminate i t would be better evaluated with MRI. 4. Moderate sliding type hiatal hernia. Electronically signed by: Shad Francis M.D. 09/08/2018 8:28 PM
--- NOTE | 2018-09-08 21:30 | History & Physical Report ---
Date of Service September 08, 2018 Assessment & Plan (1) Gastroparesis: (2) Anemia: (3) Chronic back pain: (4) Anxiety and depression: (5) Trung's disease: (6) Hypertension: (7) Nausea and vomiting: (8) Acute pancreatitis: Jolene is a 73-year-old female with a past medical history of hypertension, Trung thyroiditis, back pain, gastroparesis, narcolepsy, fibromyalgia, chronic fatigue, and back deformity who has had intermittent gastroparesis for 3 years with nausea and vomiting which acutely worsened in the last 2 weeks in which has had escalating pain to an 8-9 out of 10 today and imaging consistent with acute pancreatitis. Acute Pancreatitis CTa shows moderate to severe acute interstitial edematous pancreatitis with peripancreatic fluid, no signs of necrosis. Gallbladder distention is present without ductal dilation or signs of cholecystitis. Interval development of liver hypoenhancement (question infarct versus biliary necrosis). Hiatal hernia noted Lipase elevated to 13,616 No leukocytosis, afebrile. Tachycardic, hypertensive s/p 2L NS bolus LR/D5 250 cc/h IV Pain control dilaudid 0.5mg Q3H PRN Monitor I's and O's CMP daily Glucose checks every hour. Insulin SSI with glycemic target [id number]. Unclear etiology. Patient denies history of alcohol use, with increased suspicion for medication induced pancreatitis. Question duct obstruction from gallstones, although no ductal dilation was appreciated on CT scan. Consideration of GI consult for further evaluation and recommendations regarding liver hypoenhancement per primary team Hypertension Hydrochlorothiazide 25 mg p.o. daily Gastroparesis Mirtazapine 15 mg nightly Omeprazole 40 mg p.o. twice daily converted to Protonix 40 mg p.o. twice daily Ranitidine 9 150 mg p.o. twice daily as needed Compazine 5 mg every 8 hours as needed Anxiety/depression Amitriptyline 25 mg nightly Fluoxetine 10 mg daily Mirtazapine as above Anemia Hold Ferrous sulfate 325 mg p.o. 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 Given history of gastroparesis would likely benefit from conversion to dextran or polysaccharide formulation. Hemoglobin 14, stable CBC daily Narcolepsy Dextroamphetamine 20 mg p.o. every morning Dextroamphetamine 10 mg p.o. 3 times daily as needed History of Trung thyroiditis TSH in 06/13/2017 and 12/13/2017 within normal limits without repletion Diet: N.p.o., sips and chips/meds DVT prophylaxis: Enoxaparin 40 mg SQ daily CODE STATUS: DNR/DNI Disposition: Admit to med/telemetry History of Present Illness Chief Complaint: Stomach pain, vomiting Primary Care Provider: Glo Hoang DO Jolene is a 73-year-old female with a past medical history of hypertension, Trung thyroiditis, back pain, gastroparesis, narcolepsy, chronic fatigue, and back deformity who has had intermittent gastroparesis for 3 years with nausea and vomiting which acutely worsened in the last 2 weeks in which has had escalating pain to an 8-9 out of 10 today. She reports she feels like she has a "100 pound [place] "in her stomach. She has vomited 24 times in the past 2 days, mostly clear and without blood/bile. Her appetite is decreased. She has had some sweats, chills, and has felt feverish. Her last bowel movement was yesterday, notes it was yellow-green. Her bowel movements are either yellow- green or dark/black if she takes iron or Kaopectate. Does not note any remitting or exacerbating factors. Zofran does not improve her nausea, no other attempted tx. Surgical history: 3 back surgeries, hip surgery Prior to admission medications: Amitryptaline, dextroamphetamine, iron, fluoxetine, HCTZ, mirtazapine, omeprazole, oxycodone listed on list but she denies taking this, Zantac Family history: Ovarian cancer in her mother, CAD in her mother. Hassan cancer in her father. Denies other family history, notes her parents passed when she was very young. Social history: Denies tobacco use Denies alcohol use Denies recreational drug use Reports she lives in [place] with her , who has been admitted to the hospital at the same time with a septic arthritis Code Status: DNR Allergies Allergy/AdvReac Type Severity Reaction Status Date / Time midazolam Allergy Severe AGRESSIVENESS, Verified 09/08/18 19:31 MEMORY LOSS vancomycin Allergy Severe red man Verified 09/08/18 19:31 syndrome and XENIA daptomycin Allergy Mild RASH Verified 09/08/18 19:31 fentanyl Allergy Vomiting Verified 09/08/18 19:31 gluten AdvReac Unknown SEVERE GI Verified 09/08/18 19:31 DISTRESS milk AdvReac Gastrointestinal Verified 09/08/18 19:31 Upset Home Medications Home Medications Medication Instructions Recorded Confirmed Type dextroamphetamine 20 mg PO QAM 12/03/17 09/08/18 History omeprazole 40 mg PO BID 12/03/17 09/08/18 History hydroxyzine HCl 25 mg PO Q8H PRN #20 tab 12/05/17 09/08/18 Rx ferrous sulfate 325 mg PO BID 12/28/17 09/08/18 History acetaminophen [Mapap 650 mg PO Q4H PRN #30 tab 01/05/18 09/08/18 Rx (acetaminophen)] hydrochlorothiazide 25 mg PO DAILY 07/04/18 09/08/18 History oxycodone 5 mg PO BID PRN 07/18/18 09/08/18 History ranitidine HCl 150 mg PO BID #60 tab 07/18/18 09/08/18 Rx fluoxetine 10 mg tablet 10 mg PO DAILY #30 tab 07/27/18 09/08/18 Rx mirtazapine 15 mg tablet 15 mg PO .nightly #30 tab 07/27/18 09/08/18 Rx prochlorperazine maleate 5 mg 5 mg PO Q8H PRN #10 tab 07/27/18 09/08/18 Rx tablet amitriptyline 25 mg PO QPM 09/08/18 09/08/18 History dextroamphetamine 10 mg PO TID PRN 09/08/18 09/08/18 History Past Med/Surg History Medical History Nausea and vomiting (Chronic) Hypertension (Chronic) Trung's disease (Chronic) Chronic back pain Anxiety and depression (Chronic) Gastroparesis Anemia (Acute) Narcolepsy (Chronic) Fibromyalgia (Chronic) H/O Trung thyroiditis (Chronic) H/o Lyme disease (Chronic) Failed back surgical syndrome (Chronic) Chronic fatigue syndrome (Chronic) Hx of gastric ulcer (Chronic) Hiatal hernia (Chronic) Lumbar stenosis with neurogenic claudication (Chronic) Postural kyphosis, thoracic region Celiac disease Clostridium difficile infection Infection of lumbar spine MVP (mitral valve prolapse) Trochanteric fracture of right femur Surgical History H/O lumpectomy (Acute) History of back surgery (Chronic) Social History Preferred Language: Romansh Communication Ability: Effective Visual Impairment: No Limitations Beliefs That Will Affect Care: None marital status: Current Living Situation: Spouse current occupational status: retired Feels Safe at Home: Yes Smoking Status: Never smoker Second Hand Exposure: No Hx Alcohol Use: No Hx Substance Use: No Review of Systems Review of Systems: Constitutional: Endorses fever, chills, sweats Eyes: Endorses baseline poor visual acuity with cataracts. No acute visual change. ENT: Denies ear pain, sore throat, sinus pain Cardiovascular: Denies chest pain, chest pressure, palpitations, extremity swelling Respiratory: Denies shortness of breath, cough, sputum production, difficulty breathing GI: Endorses nausea, vomiting, abdominal pain as noted in HPI. Genitourinary: Denies pain with urination, urinary urgency, urinary frequency MSK: Endorses chronic back pain, diffuse joint pain. Integumentary:Denies new rash, lesions, bruising Neurological: Denies new headache, numbness, tingling, focal weakness Physical Exam Physical Exam: General: A&Ox3. Tremulous, tearful. Cooperative. HEENT: Atraumatic, normocephalic. PERLAA. EoM intact without nystagmus. No visual field cuts. No facial asymmetry. Pulm: CTAB A&P. -wheezes, -rales, -rhonchi. Symmetrical chest rise. No increase work of breathing. No respiratory distress. Cardiac: systolic murmur ii/vi RRR, -rg. Radial and PT pulses intact and symmetrical. Abdominal: Diffusely tender in the epigastric region without rebound tenderness. Soft. Nondistended. MSK: Deformitory of the low thoracic spine with hyperkyphosis. Surgical incision healed. Results & Data Vital Signs (Past 12 Hours) Vital Signs Temp Pulse Pulse Resp BP BP Pulse Ox 09/08/18 20:25 111 H 18 164/107 H 97 09/08/18 18:49 36.7 C 116 H 18 146/107 H 95 Supervising Physician Co-Signing Physician Notes Pt seen/examined in conjunction with resident MD Radames Yousif. Orders and plan of admission formulated with resident. 73 y/o F Hx HTN, narcolepsy, chronic pain, narcolepsy, gastroparesis and chronic nausea and vomiting x 3 years - etiology is not known. She has had severe nausea, vomiting and abdominal pain which has progressed over the past two weeks. A CT of the abdomen and labs are consistent with pancreatitis. She has felt febrile but has not had a fever in the ER and could not confirm one at home. OE: AAO x 3 S1,2 R CTAB Tender in the upper abdominal quadrants No CCE No deficits P: IVF, pain control, antiemetics, NPO. Will hold HCTZ and provide hydralazine as needed She can continue her methamphetamine fro narcolepsy although this is not likely essential in the hospital. PG Care Time/CCT Total # of Minutes Spent Total Time Spent with Patient: Total time spent is greater than 50% in coordination of care (as documented) at patient's floor/unit and/or counseling patient: Resident Activity Tracking Resident Involvement: Resident Care Provided Care Provided: Adult Hospital Medicine (1) Anemia Anemia type: unspecified type Qualified Code(s): D64.9 - Anemia, unspecified
[2018-09-08 22:16] LABS: Appearance Urine Clear (Clear); Bacteria Urine Automated Negative (Negative); Bilirubin Urine Negative (Negative); Blood Urine 3+ (Negative); Color Urine Yellow; Epithelial Cell Urine Auto >30 /lpf (0-5); Glucose Urine UA Negative (Negative); Ketones Urine 2+ (Negative); Leukocyte Esterase Urine Negative (Negative); Nitrite Urine Negative (Negative); Protein Urine 1+ (Negative); RBC Urine Automated >30 /hpf (0-4); Specific Gravity Urine > 1.045 (1.000-1.030); Urobilinogen Urine Negative (Negative); pH Urine 5.5 (4.5-7.5)
[2018-09-08] MEDS ORDERED: HYDROmorphone INJ 0.5 MG/0.5 ML SYR ONE (23:40)
[2018-09-08] MEDS ORDERED: PROCHLORPERAZINE 5 MG/ML 2 ML VIAL ONE (23:43)
[2018-09-09] MEDS ORDERED: HYDROmorphone INJ 0.5 MG/0.5 ML SYR IV PRN (00:32)
[2018-09-09] MEDS ORDERED: PROCHLORPERAZINE MALEATE 5 MG TAB PO PRN (00:32)
[2018-09-09] MEDS ORDERED: ONDANSETRON INJ 2 MG/ML 2 ML VIAL IV PRN (00:32)
[2018-09-09] MEDS ORDERED: ACETAMINOPHEN 325 MG TAB PO PRN (00:32)
[2018-09-09] MEDS: D5W AND LACTATED RINGERS 1,000 ML IV SCH ×3 (01:02→14:35)
[2018-09-09] MEDS: ENOXAPARIN INJ 40 MG/0.4 ML SYR SQ SCH ×2 (01:29→09:53)
[2018-09-09] MEDS ORDERED: ZOLPIDEM TARTRATE 5 MG TAB ONE (02:11)
[2018-09-09] MEDS: ZOLPIDEM TARTRATE 5 MG TAB PO PRN ×2 (02:12→23:53)
[2018-09-09 07:31] LABS: Basophils # (auto) 0.03 K/uL (0-0.2); Basophils % (auto) 0.5 %; Eosinophils # (auto) 0.18 K/uL (0-0.5); Eosinophils % (auto) 2.9 %; Hemoglobin 11.3 g/dL (12.0-16.0); Immature Granulocytes # (auto) 0.01 K/uL (0.00-0.02); Immature Granulocytes % (auto) 0.2 %; Lymphocytes # (auto) 0.38 K/uL (1.2-3.4); Lymphocytes % (auto) 6.1 %; Mean Corpuscular Hgb Conc 32.3 g/dL (32-36); Mean Corpuscular Volume 89.5 fL (80-100); Mean Platelet Volume 10.3 fL (7.4-10.4); Monocytes # (auto) 0.48 K/uL (0.11-0.59); Monocytes % (auto) 7.7 %; Neutrophils # (auto) 5.12 K/uL (1.4-6.5); Neutrophils % (auto) 82.6 %; Platelet Count 123 K/uL (130-400); RDW Coefficient of Variation 15.8 % (11.5-14.5); RDW Standard Deviation 51.2 fL (36.4-46.3); Red Blood Count 3.91 M/uL (4.2-5.4)
[2018-09-09 07:59] LABS: Albumin Level 2.9 gm/dl (3.4-5.0); BUN Creatinine Ratio 12.3 (10-20); Calcium 8.1 mg/dl (8.5-10.1); Creatinine Clr Calc Pharmacy 46.9 ml/min; Est GFR (African American) 83.4
[2018-09-09] MEDS: PANTOprazole 40 MG TAB PO SCH ×2 (08:03→21:13)
[2018-09-09] MEDS: hydroCHLOROthiazide 25 MG TAB PO SCH (08:04)
[2018-09-09] MEDS: FLUOXETINE HCL 10 MG CAP PO SCH (08:04)
[2018-09-09 08:10] LABS: Bilirubin,Total 1.2 mg/dl (0.2-1); Globulin 2.9 gm/dl (2.5-4.0); Total Protein 5.8 gm/dl (6.4-8.2)
[2018-09-09] MEDS: POTASSIUM CHLORIDE 20 MEQ TABCR PO SCH ×3 (10:00→13:06)
--- NOTE | 2018-09-09 16:53 | Family Medicine Progress Note ---
Date of Service September 09, 2018 Assessment & Plan (1) Gastroparesis: (2) Anemia: (3) Chronic back pain: (4) Anxiety and depression: (5) Trung's disease: (6) Hypertension: (7) Nausea and vomiting: (8) Acute pancreatitis: Jolene is a 73-year-old female with a past medical history of hypertension, Trung thyroiditis, back pain, gastroparesis, narcolepsy, fibromyalgia, chronic fatigue, and back deformity who has had intermittent gastroparesis for 3 years with nausea and vomiting which acutely worsened in the last 2 weeks in which has had escalating pain to an 8-9 out of 10 today and imaging consistent with acute pancreatitis. Acute Pancreatitis CTa shows moderate to severe acute interstitial edematous pancreatitis with peripancreatic fluid, no signs of necrosis. Gallbladder distention is present without ductal dilation or signs of cholecystitis. Interval development of liver hypoenhancement (question infarct versus biliary necrosis). Hiatal hernia noted Lipase elevated to 13,616 No leukocytosis, afebrile. Tachycardic, hypertensive LR/D5 150 cc/h IV Pain control dilaudid 0.5mg Q3H PRN Monitor I's and O's CMP daily Glucose checks every hour. Insulin SSI with glycemic target [id number]. Unclear etiology. Patient denies history of alcohol use, with increased suspicion for medication induced pancreatitis. Question duct obstruction from gallstones, although no ductal dilation was appreciated on CT scan. Consideration of GI consult for further evaluation and recommendations regarding liver hypoenhancement per primary team -Patient was recently started on thiazide diuretics has been known to have an association with pancreatitis Hypertension Hydrochlorothiazide 25 mg p.o. daily could consider transitioning medications, however she has been improving while still being administered HCTZ likely not the culprit Gastroparesis Mirtazapine 15 mg nightly Omeprazole 40 mg p.o. twice daily converted to Protonix 40 mg p.o. twice daily Ranitidine 9 150 mg p.o. twice daily as needed Compazine 5 mg every 8 hours as needed -Serotonergic medications could explain subjective symptoms of intermittent tachycardia associated with sweating Anxiety/depression Amitriptyline 25 mg nightly Fluoxetine 10 mg daily Mirtazapine as above Anemia Hold Ferrous sulfate 325 mg p.o. twice daily UI [employer]. Given history of gastroparesis would likely benefit from conversion to dextran or polysaccharide formulation. Hemoglobin 14, stable CBC daily Narcolepsy Dextroamphetamine 20 mg p.o. every morning Dextroamphetamine 10 mg p.o. 3 times daily as needed History of Trung thyroiditis TSH in 06/13/2017 and 12/13/2017 within normal limits without repletion Diet: N.p.o., sips and chips/meds DVT prophylaxis: Enoxaparin 40 mg SQ daily CODE STATUS: DNR/DNI Disposition: med/surg Supervising Physician Co-Signing Physician Notes Patient seen and examined independently of Dr. Alfaro. Agree with history, exam findings, assessment and plan of care as outlined with the following updates. Jolene is a 73-year-old female with a past medical history of hypertension, Trung thyroiditis, back pain, gastroparesis, narcolepsy, fibromyalgia, chronic fatigue, and back deformity who has had intermittent gastroparesis for 3 years with nausea and vomiting which acutely worsened in the last 2 weeks in which has had escalating pain to an 8-9 out of 10 today and imaging consistent with acute pancreatitis. 1. Acute Pancreatitis CTa shows moderate to severe acute interstitial edematous pancreatitis with peripancreatic fluid, no signs of necrosis. Gallbladder distention is present without ductal dilation or signs of cholecystitis. Interval development of liver hypoenhancement (question infarct versus biliary necrosis). Hiatal hernia noted Lipase elevated to 13,616 LR/D5 250 cc/h IV Pain control dilaudid 0.5mg Q3H PRN Unclear etiology. Patient denies history of alcohol use, with increased suspicion for medication induced pancreatitis. Question duct obstruction from gallstones, although no ductal dilation was appreciated on CT scan. Check lipids, Consideration of GI consult for further evaluation and recommendations regarding liver hypoenhancement per primary team 2. Hypokalemia, repleting. 3. Hypertension Hydrochlorothiazide 25 mg p.o. daily 4. Anemia Hold Ferrous sulfate 325 mg p.o. twice daily UI [employer]. Given history of gastroparesis would likely benefit from conversion to dextran or polysaccharide formulation. Other issues are stable. Subjective Patient sleeping in bed this morning in no acute distress. 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 Patient reports voiding, and stooling, has been n.p.o., slept okay overnight. It is interesting the patient did have a number interesting constitutional symptoms that may or may not be related to her current presentation she did endorse intermittent hot flashes associated with sweating and tachycardia. She also reported intermittent bowel trouble with alternating diarrhea and constipation. None of the symptoms are current these were all in the past. No questions currently all concerns addressed. Physical Exam Physical Exam: General: No acute distress HEENT: Normocephalic atraumatic Neck: Normal visual inspection Cardiac: Regular rate and rhythm I do not appreciate murmurs rubs or gallops normal S1 normal S2 negative calf tenderness negative pedal edema Respiratory: Clear to auscultation bilaterally GI: Normal bowel sounds soft nontender nondistended MSK: Spinal fusion causing abnormal body habitus, she has significant kyphosis when standing, reporting this prevents her from breathing adequately and compresses her abdominal organs Skin: No new rashes Neuro: Alert and oriented Psych: Calm and cooperative Results & Data Vital Signs (Past 12 Hours) Vital Signs Temp Pulse Pulse Resp BP BP Pulse Ox 09/09/18 07:24 36.9 C 112 H 17 157/79 H 90 09/09/18 03:39 36.9 C 112 H 18 146/80 H 91 09/09/18 00:15 36.7 C 114 H 16 162/94 H 94 09/08/18 23:46 119 H 21 186/105 H 09/08/18 23:45 118 H 28 H 09/08/18 23:31 115 H 22 94 09/08/18 23:30 113 H 19 177/119 H 92 09/08/18 23:20 115 H 19 180/111 H 92 09/08/18 23:17 116 H 21 192/112 H 94 09/08/18 23:15 118 H 19 09/08/18 23:00 112 H 19 09/08/18 22:45 115 H 15 09/08/18 22:30 113 H 20 09/08/18 22:15 112 H 16 09/08/18 22:00 112 H 21 09/08/18 21:45 115 H 24 09/08/18 21:30 114 H 17 09/08/18 21:15 116 H 25 H 94 09/08/18 21:00 113 H 19 93 09/08/18 20:45 108 H 17 97 Laboratory Results 09/09/18 09/09/18 09/09/18 Range/Units 16:31 11:46 07:36 WBC (4.8-10.8) K/uL RBC (4.2-5.4) M/uL Hgb (12.0-16.0) g/dL Hct (37-47) % MCV (80-100) fL MCH (25-34) pg MCHC (32-36) g/dL RDW Std Deviation (36.4-46.3) fL RDW Coeff of [place] (11.5-14.5) % Plt Count (130-400) K/uL MPV (7.4-10.4) fL Immature Gran % (Auto) % Neut % (Auto) % Lymph % (Auto) % [place] % (Auto) % Eos % (Auto) % Baso % (Auto) % Immature Gran # (Auto) (0.00-0.02) K/uL Neut # (Auto) (1.4-6.5) K/uL Lymph # (Auto) (1.2-3.4) K/uL [place] # (Auto) (0.11-0.59) K/uL Eos # (Auto) (0-0.5) K/uL Baso # (Auto) (0-0.2) K/uL Sodium (136-145) mmol/L Potassium (3.5-5.1) mmol/L Chloride (98-107) mmol/L Carbon Dioxide (21-32) mmol/L Anion Gap (3-11) BUN (7-18) mg/dl Creatinine (0.6-1.2) mg/dl Est Cr Clr Drug Dosing ml/min Est GFR ( Amer) Est GFR (Non-Af Amer) BUN/Creatinine Ratio (10-20) Glucose (70-99) mg/dl POC Glucose 118 H 103 H 104 H (70-99) Calcium (8.5-10.1) mg/dl Total Bilirubin (0.2-1) mg/dl AST (15-37) U/L ALT (12-78) U/L Alkaline Phosphatase (45-117) U/L Troponin I (0-0.045) ng/ml Total Protein (6.4-8.2) gm/dl Albumin (3.4-5.0) gm/dl Globulin (2.5-4.0) gm/dl Albumin/Globulin Ratio (0.9-2) Lipase (73-393) U/L TSH (0.300-4.500) uIu/ml Urine Color Urine Appearance (Clear) Urine pH (4.5-7.5) Ur Specific [place] (1.000-1.030) Urine Protein (Negative) Urine Glucose (UA) (Negative) Urine Ketones (Negative) Urine Blood (Negative) Urine Nitrite (Negative) Urine Bilirubin (Negative) Urine Urobilinogen (Negative) Ur Leukocyte Esterase (Negative) Urine WBC (Auto) (0-5) /hpf Urine RBC (Auto) (0-4) /hpf U Hyaline Cast (Auto) (0-5) /lpf U Epithel Cells (Auto) (0-5) /lpf Urine Bacteria (Auto) (Negative) 09/09/18 09/09/18 09/09/18 Range/Units 07:07 07:07 04:04 WBC 6.20 (4.8-10.8) K/uL RBC 3.91 L (4.2-5.4) M/uL Hgb 11.3 L D (12.0-16.0) g/dL Hct 35.0 L (37-47) % MCV 89.5 (80-100) fL MCH 28.9 (25-34) pg MCHC 32.3 (32-36) g/dL RDW Std Deviation 51.2 H (36.4-46.3) fL RDW Coeff of [place] 15.8 H (11.5-14.5) % Plt Count 123 L (130-400) K/uL MPV 10.3 (7.4-10.4) fL Immature Gran % (Auto) 0.2 % Neut % (Auto) 82.6 % Lymph % (Auto) 6.1 % [place] % (Auto) 7.7 % Eos % (Auto) 2.9 % Baso % (Auto) 0.5 % Immature Gran # (Auto) 0.01 (0.00-0.02) K/uL Neut # (Auto) 5.12 (1.4-6.5) K/uL Lymph # (Auto) 0.38 L (1.2-3.4) K/uL [place] # (Auto) 0.48 (0.11-0.59) K/uL Eos # (Auto) 0.18 (0-0.5) K/uL Baso # (Auto) 0.03 (0-0.2) K/uL Sodium 138 (136-145) mmol/L Potassium 3.0 L (3.5-5.1) mmol/L Chloride 102 (98-107) mmol/L Carbon Dioxide 29 (21-32) mmol/L Anion Gap 7.0 (3-11) BUN 10 (7-18) mg/dl Creatinine 0.82 (0.6-1.2) mg/dl Est Cr Clr Drug Dosing 46.9 ml/min Est GFR ( Amer) 83.4 Est GFR (Non-Af Amer) 72.0 BUN/Creatinine Ratio 12.3 (10-20) Glucose 113 H (70-99) mg/dl POC Glucose 110 H (70-99) Calcium 8.1 L (8.5-10.1) mg/dl Total Bilirubin 1.2 H (0.2-1) mg/dl AST 60 H (15-37) U/L ALT 36 (12-78) U/L Alkaline Phosphatase 111 (45-117) U/L Troponin I (0-0.045) ng/ml Total Protein 5.8 L D (6.4-8.2) gm/dl Albumin 2.9 L (3.4-5.0) gm/dl Globulin 2.9 (2.5-4.0) gm/dl Albumin/Globulin Ratio 1.0 (0.9-2) Lipase (73-393) U/L TSH 3.500 (0.300-4.500) uIu/ml Urine Color Urine Appearance (Clear) Urine pH (4.5-7.5) Ur Specific [place] (1.000-1.030) Urine Protein (Negative) Urine Glucose (UA) (Negative) Urine Ketones (Negative) Urine Blood (Negative) Urine Nitrite (Negative) Urine Bilirubin (Negative) Urine Urobilinogen (Negative) Ur Leukocyte Esterase (Negative) Urine WBC (Auto) (0-5) /hpf Urine RBC (Auto) (0-4) /hpf U Hyaline Cast (Auto) (0-5) /lpf U Epithel Cells (Auto) (0-5) /lpf Urine Bacteria (Auto) (Negative) 09/09/18 09/08/1819 Range/Units 00:52 21:37 19:07 WBC (4.8-10.8) K/uL RBC (4.2-5.4) M/uL Hgb (12.0-16.0) g/dL Hct (37-47) % MCV (80-100) fL MCH (25-34) pg MCHC (32-36) g/dL RDW Std Deviation (36.4-46.3) fL RDW Coeff of Kenia (11.5-14.5) % Plt Count (130-400) K/uL MPV (7.4-10.4) fL Immature Gran % (Auto) % Neut % (Auto) % Lymph % (Auto) % [place] % (Auto) % Eos % (Auto) % Baso % (Auto) % Immature Gran # (Auto) (0.00-0.02) K/uL Neut # (Auto) (1.4-6.5) K/uL Lymph # (Auto) (1.2-3.4) K/uL [place] # (Auto) (0.11-0.59) K/uL Eos # (Auto) (0-0.5) K/uL Baso # (Auto) (0-0.2) K/uL Sodium 137 (136-145) mmol/L Potassium 3.5 (3.5-5.1) mmol/L Chloride 97 L (98-107) mmol/L Carbon Dioxide 24 (21-32) mmol/L Anion Gap 16.0 H (3-11) BUN 10 (7-18) mg/dl Creatinine 1.00 (0.6-1.2) mg/dl Est Cr Clr Drug Dosing 41.5 ml/min Est GFR ( Amer) 65.6 Est GFR (Non-Af Amer) 56.6 BUN/Creatinine Ratio 9.6 L (10-20) Glucose 96 (70-99) mg/dl POC Glucose 100 H (70-99) Calcium 9.4 (8.5-10.1) mg/dl Total Bilirubin 1.1 H (0.2-1) mg/dl AST 101 H (15-37) U/L ALT 53 (12-78) U/L Alkaline Phosphatase 155 H (45-117) U/L Troponin I < 0.015 (0-0.045) ng/ml Total Protein 7.7 (6.4-8.2) gm/dl Albumin 3.7 (3.4-5.0) gm/dl Globulin 4.0 (2.5-4.0) gm/dl Albumin/Globulin Ratio 0.9 (0.9-2) Lipase 73643 H (73-393) U/L TSH (0.300-4.500) uIu/ml Urine Color Yellow Urine Appearance Clear (Clear) Urine pH 5.5 (4.5-7.5) Ur Specific [place] > 1.045 H (1.000-1.030) Urine Protein 1+ H (Negative) Urine Glucose (UA) Negative (Negative) Urine Ketones 2+ H (Negative) Urine Blood 3+ H (Negative) Urine Nitrite Negative (Negative) Urine Bilirubin Negative (Negative) Urine Urobilinogen Negative (Negative) Ur Leukocyte Esterase Negative (Negative) Urine WBC (Auto) 5-10 H (0-5) /hpf Urine RBC (Auto) >30 H (0-4) /hpf U Hyaline Cast (Auto) 10-30 H (0-5) /lpf U Epithel Cells (Auto) >30 H (0-5) /lpf Urine Bacteria (Auto) Negative (Negative) 09/08/18 Range/Units 19:07 WBC 10.10 (4.8-10.8) K/uL RBC 5.00 (4.2-5.4) M/uL Hgb 14.6 (12.0-16.0) g/dL Hct 43.7 (37-47) % MCV 87.4 (80-100) fL MCH 29.2 (25-34) pg MCHC 33.4 (32-36) g/dL RDW Std Deviation 50.8 H (36.4-46.3) fL RDW Coeff of [place]ia 15.9 H (11.5-14.5) % Plt Count 184 (130-400) K/uL MPV 10.0 (7.4-10.4) fL Immature Gran % (Auto) 0.2 % Neut % (Auto) 87.6 % Lymph % (Auto) 3.3 % [place] % (Auto) 8.7 % Eos % (Auto) 0.1 % Baso % (Auto) 0.1 % Immature Gran # (Auto) 0.02 (0.00-0.02) K/uL Neut # (Auto) 8.85 H (1.4-6.5) K/uL Lymph # (Auto) 0.33 L (1.2-3.4) K/uL [place] # (Auto) 0.88 H (0.11-0.59) K/uL Eos # (Auto) 0.01 (0-0.5) K/uL Baso # (Auto) 0.01 (0-0.2) K/uL Sodium (136-145) mmol/L Potassium (3.5-5.1) mmol/L Chloride (98-107) mmol/L Carbon Dioxide (21-32) mmol/L Anion Gap (3-11) BUN (7-18) mg/dl Creatinine (0.6-1.2) mg/dl Est Cr Clr Drug Dosing ml/min Est GFR ( Amer) Est GFR (Non-Af Amer) BUN/Creatinine Ratio (10-20) Glucose (70-99) mg/dl POC Glucose (70-99) Calcium (8.5-10.1) mg/dl Total Bilirubin (0.2-1) mg/dl AST (15-37) U/L ALT (12-78) U/L Alkaline Phosphatase (45-117) U/L Troponin I (0-0.045) ng/ml Total Protein (6.4-8.2) gm/dl Albumin (3.4-5.0) gm/dl Globulin (2.5-4.0) gm/dl Albumin/Globulin Ratio (0.9-2) Lipase (73-393) U/L TSH (0.300-4.500) uIu/ml Urine Color Urine Appearance (Clear) Urine pH (4.5-7.5) Ur Specific [place] (1.000-1.030) Urine Protein (Negative) Urine Glucose (UA) (Negative) Urine Ketones (Negative) Urine Blood (Negative) Urine Nitrite (Negative) Urine Bilirubin (Negative) Urine Urobilinogen (Negative) Ur Leukocyte Esterase (Negative) Urine WBC (Auto) (0-5) /hpf Urine RBC (Auto) (0-4) /hpf U Hyaline Cast (Auto) (0-5) /lpf U Epithel Cells (Auto) (0-5) /lpf Urine Bacteria (Auto) (Negative) Medications Administered Current Inpatient Medications Acetaminophen (Tylenol) 650 mg PO Q4H PRN PRN Reason: pain Stop: 10/09/18 00:31 Amitriptyline HCl (Elavil) 25 mg PO QPM AYAKA Stop: 10/09/18 20:59 Enoxaparin Sodium (Lovenox) 40 mg SQ Q24H AYAKA Stop: 10/09/18 00:31 Last Admin: 09/09/18 09:53 Dose: Not Given Documented by: Fluoxetine HCl (Prozac) 10 mg PO DAILY AYAKA Stop: 10/09/18 08:59 Last Admin: 09/09/18 08:04 Dose: 10 mg Documented by: Hydrochlorothiazide (Hctz) 25 mg PO DAILY AYAKA Stop: 10/09/18 08:59 Last Admin: 09/09/18 08:04 Dose: 25 mg Documented by: Hydromorphone HCl (Dilaudid) 0.5 mg IV Q3H PRN PRN Reason: Pain Stop: 09/23/18 00:31 Hydroxyzine HCl (Vistaril) 25 mg PO Q8H PRN PRN Reason: itching Stop: 10/09/18 00:31 Last Admin: 09/09/18 10:01 Dose: 25 mg Documented by: Dextrose/Lactated Ringer's (D5w And Lactated Ringers) 1,000 mls @ 150 mls/hr IV .Q6H40M [facility] Stop: 09/09/18 20:31 Last Admin: 09/09/18 14:35 Dose: 150 mls/hr Documented by: Mirtazapine (Remeron) 15 mg PO HS [facility] Stop: 10/09/18 20:59 Ondansetron HCl (Zofran) 4 mg IV Q6H PRN PRN Reason: Nausea Stop: 10/09/18 00:31 Pantoprazole Sodium (Protonix) 40 mg PO BID [facility] Stop: 10/09/18 08:59 Last Admin: 09/09/18 08:03 Dose: 40 mg Documented by: Prochlorperazine (Compazine) 5 mg PO Q8H PRN PRN Reason: nausea and vomiting Stop: 10/09/18 00:31 Ranitidine HCl (Zantac) 150 mg PO BID [facility] Stop: 10/09/18 08:59 Last Admin: 09/09/18 08:04 Dose: 150 mg Documented by: Zolpidem Tartrate (Ambien) 5 mg PO HS PRN PRN Reason: Sleep Stop: 10/09/18 01:57 PG Care Time/CCT Total # of Minutes Spent Total Time Spent with Patient: Total time spent is greater than 50% in coordination of care (as documented) at patient's floor/unit and/or counseling patient: Resident Activity Tracking Resident Involvement: Resident Care Provided Care Provided: Adult Hospital Medicine (1) Anemia Anemia type: unspecified type Qualified Code(s): D64.9 - Anemia, unspecified
[2018-09-09] MEDS: AMITRIPTYLINE HCL 25 MG TAB PO SCH (21:13)
[2018-09-09] MEDS: MIRTAZAPINE TAB 15 MG TAB PO SCH (21:14)
[2018-09-10] MEDS: PANTOprazole 40 MG TAB PO SCH ×2 (08:09→20:38)
[2018-09-10] MEDS: FLUOXETINE HCL 10 MG CAP PO SCH (08:09)
[2018-09-10] MEDS: ENOXAPARIN INJ 40 MG/0.4 ML SYR SQ SCH (08:10)
[2018-09-10] MEDS: hydroCHLOROthiazide 25 MG TAB PO SCH (08:10)
--- NOTE | 2018-09-10 08:15 | Family Medicine Progress Note ---
Date of Service September 10, 2018 Assessment & Plan (1) Acute pancreatitis: Jolene is a 73-year-old female with a past medical history of hypertension, Trung thyroiditis, back pain, gastroparesis, narcolepsy, fibromyalgia, chronic fatigue, and back deformity who has had intermittent gastroparesis for 3 years with nausea and vomiting which acutely worsened in the last 2 weeks in which has had escalating pain to an 8-9 out of 10 today and imaging consistent with acute pancreatitis. Acute Pancreatitis CTa shows moderate to severe acute interstitial edematous pancreatitis with peripancreatic fluid, no signs of necrosis. Gallbladder distention is present without ductal dilation or signs of cholecystitis. Interval development of liver hypoenhancement (question infarct versus biliary necrosis). Hiatal hernia noted Lipase elevated to 13,616 No leukocytosis, afebrile. Tachycardic, hypertensive LR/D5 150 cc/h IV Pain control dilaudid 0.5mg Q3H PRN Monitor I's and O's CMP daily Glucose checks every hour. Insulin SSI with glycemic target [id number]. Unclear etiology. Patient denies history of alcohol use, with increased suspicion for medication induced pancreatitis. Question duct obstruction from gallstones, although no ductal dilation was appreciated on CT scan. Consi deration of GI consult for further evaluation and recommendations regarding liver hypoenhancement per primary team -Patient was recently started on thiazide diuretics has been known to have an association with pancreatitis Hypertension Hydrochlorothiazide 25 mg p.o. daily could consider transitioning medications, however she has been improving while still being administered HCTZ likely not the culprit Gastroparesis Mirtazapine 15 mg nightly Omeprazole 40 mg p.o. twice daily converted to Protonix 40 mg p.o. twice daily Ranitidine 150 mg p.o. twice daily as needed Compazine 5 mg every 8 hours as needed -Serotonergic medications could explain subjective symptoms of intermittent tachycardia associated with sweating Anxiety/depression Amitriptyline 25 mg nightly Fluoxetine 10 mg daily Mirtazapine as above Anemia Hold Ferrous sulfate 325 mg p.o. twice daily [employer]. Given history of gastroparesis would likely benefit from conversion to dextran or polysaccharide formulation. Hemoglobin 14, stable CBC daily Narcolepsy Dextroamphetamine 20 mg p.o. every morning Dextroamphetamine 10 mg p.o. 3 times daily as needed History of Trung thyroiditis TSH in 06/13/2017 and 12/13/2017 within normal limits without repletion -TSH this admission 3.5 Diet: N.p.o., sips and chips/meds DVT prophylaxis: Enoxaparin 40 mg SQ daily CODE STATUS: DNR/DNI Disposition: med/surg Results & Data Vital Signs (Past 12 Hours) Vital Signs Temp Pulse Resp BP BP Pulse Ox 09/10/18 07:43 37.1 C 105 H 20 151/70 H 91 09/09/18 23:19 36.8 C 108 H 20 148/86 H 91 PG Care Time/CCT Total # of Minutes Spent Total Time Spent with Patient: Total time spent is greater than 50% in coordination of care (as documented) at patient's floor/unit and/or counseling patient:
[2018-09-10 08:23] LABS: Basophils # (auto) 0.01 K/uL (0-0.2); Basophils % (auto) 0.2 %; Eosinophils # (auto) 0.33 K/uL (0-0.5); Eosinophils % (auto) 6.1 %; Hematocrit (blood only) 34.3 % (37-47); Immature Granulocytes # (auto) 0.02 K/uL (0.00-0.02); Immature Granulocytes % (auto) 0.4 %; Lymphocytes # (auto) 0.65 K/uL (1.2-3.4); Lymphocytes % (auto) 11.9 %; Mean Corpuscular Hgb Conc 32.1 g/dL (32-36); Mean Corpuscular Volume 90.3 fL (80-100); Mean Platelet Volume 10.8 fL (7.4-10.4); Monocytes # (auto) 0.56 K/uL (0.11-0.59); Monocytes % (auto) 10.3 %; Neutrophils # (auto) 3.87 K/uL (1.4-6.5); Neutrophils % (auto) 71.1 %; Platelet Count 118 K/uL (130-400); RDW Coefficient of Variation 15.5 % (11.5-14.5); RDW Standard Deviation 51.6 fL (36.4-46.3); White Blood Count 5.44 K/uL (4.8-10.8)
[2018-09-10 09:29] LABS: Albumin Globulin Ratio 0.9 (0.9-2); Albumin Level 2.9 gm/dl (3.4-5.0); BUN Creatinine Ratio 5.9 (10-20); Calcium 8.3 mg/dl (8.5-10.1); Creatinine Clr Calc Pharmacy 49.3 ml/min; Est GFR (Non-African American) 74.2; Globulin 3.2 gm/dl (2.5-4.0); Potassium 3.3 mmol/L (3.5-5.1); Total Protein 6.1 gm/dl (6.4-8.2)
[2018-09-10] MEDS: POTASSIUM CHLORIDE 20 MEQ TABCR PO SCH ×2 (13:58→13:59)
--- NOTE | 2018-09-10 14:39 | Discharge Summary ---
Date of Service September 10, 2018 Admission HPI Per Admitting Provider Jolene is a 73-year-old female with a past medical history of hypertension, Trung thyroiditis, back pain, gastroparesis, narcolepsy, chronic fatigue, and back deformity who has had intermittent gastroparesis for 3 years with nausea and vomiting which acutely worsened in the last 2 weeks in which has had escalating pain to an 8-9 out of 10 today. She reports she feels like she has a "100 pound Jackson "in her stomach. She has vomited 24 times in the past 2 days, mostly clear and without blood/bile. Her appetite is decreased. She has had some sweats, chills, and has felt feverish. Her last bowel movement was yesterday, notes it was yellow-green. Her bowel movements are either yellow- green or dark/black if she takes iron or Kaopectate. Does not note any remitting or exacerbating factors. Zofran does not improve her nausea, no other attempted tx. Surgical history: 3 back surgeries, hip surgery Prior to admission medications: Amitryptaline, dextroamphetamine, iron, fluoxetine, HCTZ, mirtazapine, omeprazole, oxycodone listed on list but she denies taking this, Zantac Family history: Ovarian cancer in her mother, CAD in her mother. Hassan cancer in her father. Denies other family history, notes her parents passed when she was very young. Social history: Denies tobacco use Denies alcohol use Denies recreational drug use Reports she lives in [place] with her , who has been admitted to the hospital at the same time with a septic arthritis Code Status: DNR Admission Exam Per Admitting Provider General: A&Ox3. Tremulous, tearful. Cooperative. HEENT: Atraumatic, normocephalic. PERLAA. EoM intact without nystagmus. No visual field cuts. No facial asymmetry. Pulm: CTAB A&P. -wheezes, -rales, -rhonchi. Symmetrical chest rise. No increase work of breathing. No respiratory distress. Cardiac: systolic murmur ii/vi RRR, -rg. Radial and PT pulses intact and symmetrical. Abdominal: Diffusely tender in the epigastric region without rebound tenderness. Soft. Nondistended. MSK: Deformitory of the low thoracic spine with hyperkyphosis. Surgical incision healed. Principal Diagnosis Pancreatitis Discharge Exam General: No acute distress HEENT: Normocephalic atraumatic Neck: Normal visual inspection Cardiac: Regular rate and rhythm I do not appreciate murmurs rubs or gallops normal S1 normal S2 negative calf tenderness negative pedal edema Respiratory: Clear to auscultation bilaterally GI: Normal bowel sounds soft nontender nondistended MSK: Spinal fusion causing abnormal body habitus, she has significant kyphosis when standing, reporting this prevents her from breathing adequately and compresses her abdominal organs Skin: No new rashes Neuro: Alert and oriented Psych: Calm and cooperative Discharge Data Allergies Allergy/AdvReac Type Severity Reaction Status Date / Time midazolam Allergy Severe AGRESSIVENESS, Verified 09/08/18 19:31 MEMORY LOSS vancomycin Allergy Severe red man Verified 09/08/18 19:31 syndrome and XENIA daptomycin Allergy Mild RASH Verified 09/08/18 19:31 fentanyl Allergy Vomiting Verified 09/08/18 19:31 gluten AdvReac Unknown SEVERE GI Verified 09/08/18 19:31 DISTRESS egg AdvReac Verified 09/11/18 12:51 milk AdvReac Gastrointestinal Verified 09/08/18 19:31 Upset Consultations 09/08/18 20:47 ED Decision to Admit Stat Ordered Studies 09/08/18 19:57 CT abd pelvis IV con only Stat Hospital Course (1) Acute pancreatitis: Jolene is a 73-year-old female with a past medical history of hypertension, Trung thyroiditis, back pain, gastroparesis, narcolepsy, fibromyalgia, chronic fatigue, and back deformity who has had intermittent gastroparesis for 3 years with nausea and vomiting which acutely worsened in the last 2 weeks in which has had escalating pain to an 8-9 out of 10 today and imaging consistent with acute pancreatitis. Acute Pancreatitis CTa shows moderate to severe acute interstitial edematous pancreatitis with peripancreatic fluid, no signs of necrosis. Gallbladder distention is present without ductal dilation or signs of cholecystitis. Interval development of liver hypoenhancement (question infarct versus biliary necrosis), hiatal hernia noted. Lipase elevated to 13,616 on admission,no leukocytosis, afebrile, Tachycardic and hypertensive. Initially she was maintained on D5W at 100 250 cc/h this was downgraded 250 cc an hour after 1 day. Pain control was provided with Dilaudid 0.5 mg. On day of discharge patient was endorsing no pain. CMP was monitored daily with no significant abnormalities. Patient was maintained on insulin sliding scale with glycemic target 120-180. She tolerated clears and subsequently a low-fat diet however she experienced some diarrhea and was monitored overnight. Diarrhea improve and she was subsequently discharged the next day. Unclear etiology. Patient denies history of alcohol use, with increased suspicion for medication induced pancreatitis. Question duct obstruction from gallstones, although no ductal dilation was appreciated on CT scan. Consideration of GI evaluation as outpatient for further evaluation and recommendations regarding liver hypoenhancement per primary team -Patient was recently started on thiazide diuretics has been known to have an association with pancreatitis PCP may consider switching to other diuretics Hypertension Hydrochlorothiazide 25 mg p.o. daily could consider transitioning medications, however she has been improving while still being administered HCTZ likely not the culprit -Defer to PCP for further management Tachycardia Patient was tachycardic throughout her entire admission heart rate varied from upper 90s to low 100s per the patient this is a chronic problem and her PCP is aware of this. Could consider working this up further as an outpatient. Differential to include pheochromocytoma, medication overuse, idiopathic. Gastroparesis Mirtazapine 15 mg nightly Omeprazole 40 mg p.o. twice daily converted to Protonix 40 mg p.o. twice daily Ranitidine 150 mg p.o. 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 Given history of gastroparesis would likely benefit from conversion to dextran or polysaccharide formulation. Hemoglobin 14, stable CBC daily Narcolepsy Dextroamphetamine 20 mg p.o. every morning Dextroamphetamine 10 mg p.o. 3 times daily as needed History of Trung thyroiditis TSH in 06/13/2017 and 12/13/2017 within normal limits without repletion -TSH this admission 3.5 Diet: Tolerated low-fat diet DVT prophylaxis: Enoxaparin 40 mg SQ daily CODE STATUS: DNR/DNI Disposition: med/surg Total Time Total Time Spent Total Time Spent (In Minutes): >30 Discharge Plan Discharge Items Patient Disposition: Home - Self-Care Reason For Visit: ACUTE PANCREATITIS Discharge Diagnosis: ACUTE PANCREATITIS Discharge Goals: Decrease discomfort and Therapeutic intervention Activity: Resume your previous activity Activity Comment: as tolerated Non-emergency contact: Primary Care Provider Call non-emergency contact if: your symptoms worsen, your pain is not controlled and your temperature is above 100.5 Follow-up/Referrals: Glo Hoang DO [Primary Care Provider] - 09/16/18 9:15 am (Please, follow up with Dr. Hoang on FridaySeptember 16 at 9:15 am. *If you need to change this appointment, call the office at [phone].) Diet: Low Fat Addtl Provider Instructions: Care instructions: You were admitted to [facility] for treatment of acute pancreatitis. A discharge summary will be sent to your primary care physician to ensure continuity of care.Please bring this discharge summary with you to your next office appointment so that your provider can review it at that time. Please limit your diet to low fat diet and easy to digest food for the next 3-4 days. Follow-up appointments: - Keep all your follow-up appointments as already scheduled. If you cannot make an appointment, notify your provider. - Please call to request a follow-up appointment with your primary care physician within one week of discharge. Please let us know if you are unable to obtain an appointment Medications: - Your medication list has been reviewed and reconciled upon discharge to ensure accuracy and continuity of care. - You are provided with a list of all your current medications at this time. Please review this list closely and make note of any changes. - Please take all of your medications exactly as prescribed. - Tell your primary care provider if you cannot afford your medications. - Call your primary care provider if you are having any side effects or any other problems. - Call your primary care provider before taking any over the counter medications or supplements, including herbals and vitamins, because some of these may interact with your current medications and/or make your symptoms worse. Symptoms: Please call your primary care provider for symptoms including, but not limited to: fevers (temperatures greater than 100.4), chills, intractable nausea or vomiting, diarrhea, rash, shortness of breath, bleeding, pain, or if you experience any worsening of the symptoms that brought you to the hospital. For EMERGENCY and VERY SERIOUS health-related issues, such as chest pain, shortness of breath, or sudden onset of the symptoms that brought you to the hospital, you may need to call 911 or go directly to the Emergency Room It has been our privilege to take care of you during your hospital stay. And Above All Else Fell Better! Best Wishes, Hasmukh Alfaro MD PGY1 Resident, Family & Community Medicine [facility] Residency at [facility] - [address], [address] MC: [place] [address] Prescriptions: Continued fluoxetine 10 mg tablet 10 mg PO DAILY Qty: 30 RF: 2 prochlorperazine maleate [Compazine] 5 mg tablet 5 mg PO Q8H PRN (Reason: nausea and vomiting) Qty: 10 RF: 0 hydrochlorothiazide 25 mg Tablet 25 mg PO DAILY RF: 0 omeprazole 40 mg capsule,delayed release(DR/EC) 40 mg PO BID RF: 0 dextroamphetamine 10 mg tablet 20 mg PO QAM RF: 0 hydroxyzine HCl 25 mg tablet 25 mg PO Q8H PRN (Reason: itching) Qty: 20 RF: 0 ferrous sulfate 325 mg (65 mg iron) Tablet 325 mg PO BID RF: 0 acetaminophen [Mapap (acetaminophen)] 325 mg Tablet 650 mg PO Q4H PRN (Reason: pain) Qty: 30 RF: 0 oxycodone 5 mg tablet 5 mg PO BID PRN (Reason: Pain) RF: 0 ranitidine HCl 150 mg tablet 150 mg PO BID Qty: 60 RF: 0 dextroamphetamine 10 mg tablet 10 mg PO TID PRN (Reason: Unknown) RF: 0 amitriptyline 25 mg tablet 25 mg PO QPM RF: 0 No Action mirtazapine 15 mg tablet 15 mg PO HS Qty: 30 RF: 2 Stand-Alone Forms: My [facility] Discharge Orders: Discharge Order (Routine); Ordered 09/11/18 Ordered By: Hasmukh Alfaro Admission Data Admit Date/Time: 09/08/18 22:13 Attending Provider: Jourdan Hopson Admit Provider: Shad Rahman Primary Care Provider: Glo Hoang Other Providers: Michael Valentin Service: Surgical Services Other Interventions: Discharge Summary Assessment (RN) Last Done: 09/11/18 11:52 DC Date/Time DO NOT enter until pt leaves facility: 09/11/18 14:04 Supervising Physician Co-Signing Physician Notes Attending attestation Pt seen and examined in concert with Dr. Alfaro. In agreement with the documented findings as noted in the resident documentation with any exceptions or additions as noted here. Resolution of abdominal complaints on day of discharge and tolerating PO diet without complaint of nausea. On examination, minimal epigastric TTP and active BS throughout. CTAB. Pancreatitis - improving - encourage gentle reintroduction to diet and good PO hydration. Close follow up with PCP Diarrhea - resolved Hypokalemia - repleted and stable. Would recheck at follow up. Else see resident documentation as noted. Resident Activity Tracking Resident Involvement: Resident Care Provided Care Provided: Adult Hospital Medicine
--- NOTE | 2018-09-10 16:45 | Family Medicine Progress Note ---
Date of Service September 10, 2018 Assessment & Plan (1) Acute pancreatitis: Jolene is a 73-year-old female with a past medical history of hypertension, Trung thyroiditis, back pain, gastroparesis, narcolepsy, fibromyalgia, chronic fatigue, and back deformity who has had intermittent gastroparesis for 3 years with nausea and vomiting which acutely worsened in the last 2 weeks in which has had escalating pain to an 8-9 out of 10 today and imaging consistent with acute pancreatitis. Acute Pancreatitis CTa shows moderate to severe acute interstitial edematous pancreatitis with peripancreatic fluid, no signs of necrosis. Gallbladder distention is present without ductal dilation or signs of cholecystitis. Interval development of liver hypoenhancement (question infarct versus biliary necrosis), hiatal hernia noted. Lipase elevated to 13,616 on admission,no leukocytosis, afebrile, Ta chycardic and hypertensive. Initially she was maintained on D5W at 100 250 cc/h this was downgraded 250 cc an hour after 1 day. Pain control was provided with Dilaudid 0.5 mg. On day of discharge patient was endorsing no pain. CMP was monitored daily with no significant abnormalities. Patient was maintained on insulin sliding scale with glycemic target 120-180. Unclear etiology. Patient denies history of alcohol use, with increased suspicion for medication induced pancreatitis. Question duct obstruction from gallstones, although no ductal dilation was appreciated on CT scan. Consid eration of GI evaluation as outpatient for further evaluation and recommendations regarding liver hypoenhancement per primary team -Patient was recently started on thiazide diuretics has been known to have an association with pancreatitis PCP may consider switching to other diuretics Hypertension Hydrochlorothiazide 25 mg p.o. daily could consider transitioning medications, however she has been improving while still being administered HCTZ likely not the culprit -Defer to PCP for further management Gastroparesis Mirtazapine 15 mg nightly Omeprazole 40 mg p.o. twice daily converted to Protonix 40 mg p.o. twice daily Ranitidine 150 mg p.o. 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 Given history of gastroparesis would likely benefit from conversion to dextran or polysaccharide formulation. Hemoglobin 14, stable CBC daily Narcolepsy Dextroamphetamine 20 mg p.o. every morning Dextroamphetamine 10 mg p.o. 3 times daily as needed History of Trung thyroiditis TSH in 06/13/2017 and 12/13/2017 within normal limits without repletion -TSH this admission 3.5 Diarrhea pt developed diarrhea likely 2/2 being npo for a few days and reinitiating clear liquid diet -monitor overnight for improvement of symptoms and or resolution Diet: Tolerated low-fat diet DVT prophylaxis: Enoxaparin 40 mg SQ daily CODE STATUS: DNR/DNI Disposition: med/surg Supervising Physician Co-Signing Physician Notes Patient seen and examined independently of Dr. Alfaro. Agree with history, exam findings, assessment and plan of care as outlined with the following updates. Jolene is a 73-year-old female with a past medical history of hypertension, Trung thyroiditis, back pain, gastroparesis, narcolepsy, fibromyalgia, chronic fatigue, and back deformity who has had intermittent gastroparesis for 3 years admitted with acute pancreatitis. Abdomen soft, nontender. 1. Acute Pancreatitis CTa shows moderate to severe acute interstitial edematous pancreatitis with peripancreatic fluid, no signs of necrosis. Gallbladder distention is present without ductal dilation or signs of cholecystitis. Interval development of liver hypoenhancement (question infarct versus biliary necrosis). Hiatal hernia noted Lipase elevated to 13,616 - d/c IVFs as she is tolerating PO/low fat diet. 2. Hypokalemia, repleting. 3. Hypertension Hydrochlorothiazide 25 mg p.o. daily 4. 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 Given history of gastroparesis would likely benefit from conversion to dextran or polysaccharide formulation. 5. Diarrhea. Low suspicion for C-diff. Suspect that this will become more formed as she starts eating. Other issues are stable. Dispo: dc home tomorrow. Subjective Pt doing well. no acute distress. Tolerated breakfast and lunch w/o issue. pt reported having diarrhea in the afternoon and was not comfortable with transport home. Requesting to stay another evening as she is uncomfortable going home with diarrhea. Physical Exam Physical Exam: General: No acute distress HEENT: Normocephalic atraumatic Neck: Normal visual inspection Cardiac: Regular rate and rhythm I do not appreciate murmurs rubs or gallops normal S1 normal S2 negative calf tenderness negative pedal edema Respiratory: Clear to auscultation bilaterally GI: Normal bowel sounds soft nontender nondistended MSK: Spinal fusion causing abnormal body habitus, she has significant kyphosis when standing, reporting this prevents her from breathing adequately and compresses her abdominal organs Skin: No new rashes Neuro: Alert and oriented Psych: Calm and cooperative Results & Data Vital Signs (Past 12 Hours) Vital Signs Temp Pulse Resp BP BP Pulse Ox 09/10/18 15:06 37.1 C 105 H 20 148/86 H 151/70 H 91 09/10/18 07:43 37.1 C 105 H 20 151/70 H 91 PG Care Time/CCT Total # of Minutes Spent Total Time Spent with Patient: Total time spent is greater than 50% in coordination of care (as documented) at patient's floor/unit and/or counseling patient: Resident Activity Tracking Resident Involvement: Resident Care Provided Care Provided: Adult Hospital Medicine
[2018-09-10] MEDS: AMITRIPTYLINE HCL 25 MG TAB PO SCH (20:38)
[2018-09-10] MEDS: MIRTAZAPINE TAB 15 MG TAB PO SCH (20:39)
[2018-09-10] MEDS: ZOLPIDEM TARTRATE 5 MG TAB PO PRN (23:57)
[2018-09-11] MEDS: hydroCHLOROthiazide 25 MG TAB PO SCH (07:37)
[2018-09-11] MEDS: ENOXAPARIN INJ 40 MG/0.4 ML SYR SQ SCH (07:37)
[2018-09-11] MEDS: FLUOXETINE HCL 10 MG CAP PO SCH (07:37)
[2018-09-11] MEDS: PANTOprazole 40 MG TAB PO SCH (07:37)
[2018-09-11 08:02] LABS: Basophils # (auto) 0.01 K/uL (0-0.2); Basophils % (auto) 0.2 %; Eosinophils # (auto) 0.21 K/uL (0-0.5); Eosinophils % (auto) 4.8 %; Hematocrit (blood only) 35.7 % (37-47); Hemoglobin 11.4 g/dL (12.0-16.0); Lymphocytes # (auto) 0.59 K/uL (1.2-3.4); Lymphocytes % (auto) 13.6 %; Mean Corpuscular Hgb Conc 31.9 g/dL (32-36); Mean Corpuscular Volume 89.5 fL (80-100); Mean Platelet Volume 10.5 fL (7.4-10.4); Monocytes # (auto) 0.54 K/uL (0.11-0.59); Monocytes % (auto) 12.4 %; Neutrophils # (auto) 2.99 K/uL (1.4-6.5); Platelet Count 119 K/uL (130-400); RDW Coefficient of Variation 15.3 % (11.5-14.5); RDW Standard Deviation 49.6 fL (36.4-46.3); Red Blood Count 3.99 M/uL (4.2-5.4); White Blood Count 4.34 K/uL (4.8-10.8)
[2018-09-11 08:32] LABS: Albumin Level 3.1 gm/dl (3.4-5.0); BUN Creatinine Ratio 6.7 (10-20); Calcium 9.1 mg/dl (8.5-10.1); Creatinine Clr Calc Pharmacy 49.9 ml/min; Est GFR (African American) 87.3; Est GFR (Non-African American) 75.3; Potassium 3.2 mmol/L (3.5-5.1)
[2018-09-11 08:35] LABS: Albumin Globulin Ratio 0.9 (0.9-2); Bilirubin,Total 0.8 mg/dl (0.2-1); Globulin 3.3 gm/dl (2.5-4.0); Total Protein 6.4 gm/dl (6.4-8.2)
== END 2018-09-11 14:04 | disposition home or self-care (01) | DRG 440 ==
LOC: ED 18:44 → 2W 22:13 → SUATTDRO 22:13 → 2W 23:47

== ENCOUNTER 2019-04-17 12:54 | Observation (INO) ==
--- NOTE | 2019-04-17 13:51 | XRay Report ---
XR chest 1V portable HISTORY: Shortness of breath. COMPARISON: Chest 07/04/2018. FINDINGS: No pneumothorax. No pleural effusions. Moderate hiatus hernia, unchanged. The heart remains mildly enlarged. There are left basilar linear densities consistent with subsegmental atelectasis or scarring. This is similar to the prior study. No new focal lung consolidations to suggest pneumonia. No evidence for pulmonary edema. Extensive thoracolumbar spinal fusion hardware is again noted. IMPRESSION: No significant change compared to the prior study. No acute process. ACT 112: Negative or not required by law. Electronically signed by: Hamilton Salas M.D. 04/17/2019 1:49 PM
[2019-04-17 13:52] LABS: Hematocrit (blood only) 21.1 % (37-47); Hemoglobin 5.7 g/dL (12.0-16.0); Mean Corpuscular Hemoglobin 16.4 pg (25-34); Mean Corpuscular Volume 60.8 fL (80-100); Mean Platelet Volume 9.6 fL (7.4-10.4); Nucleated RBC # (auto) 0.05 K/uL (0-0); Nucleated RBC % (auto) 0.9 %; Platelet Count 369 K/uL (130-400); RDW Coefficient of Variation 20.1 % (11.5-14.5); RDW Standard Deviation 43.6 fL (36.4-46.3); Red Blood Count 3.47 M/uL (4.2-5.4); White Blood Count 5.68 K/uL (4.8-10.8)
[2019-04-17] MEDS ORDERED: SODIUM CHLORIDE 0.9% 250 ML IV PRN ×2 (13:52→18:07)
[2019-04-17 13:58] LABS: INR 1.2 (0.9-1.1); Partial Thromboplastin Ratio 0.9; Partial Thromboplastin Time 24.6 Seconds (21.0-31.0); Prothrombin Time 11.9 Seconds (9.0-12.0)
[2019-04-17 14:03] LABS: Basophils # (auto) 0.03 K/uL (0-0.2); Basophils % (auto) 0.5 %; Eosinophils % (auto) 1.8 %; Hypochromasia Present; Lymphocytes # (auto) 0.78 K/uL (1.2-3.4); Lymphocytes % (auto) 13.7 %; Microcytosis Present; Monocytes # (auto) 0.91 K/uL (0.11-0.59); Neutrophils # (auto) 3.86 K/uL (1.4-6.5); Polychromasia 1+; Target Cells 1+
[2019-04-17 14:05] LABS: Iron 8 mcg/dl (35-150); Lipase 46 U/L (73-393); Magnesium 2.2 mg/dl (1.8-2.4); Total Iron Binding Capacity 363 mcg/dl (250-450); Transferrin 289 mg/dl (200-360); Troponin I < 0.015 ng/ml (0-0.045)
[2019-04-17 14:28] LABS: Alanine Aminotransferase 12 U/L (12-78); Albumin Level 3.1 gm/dl (3.4-5.0); Aspartate Aminotransferase 9 U/L (15-37); BUN Creatinine Ratio 21.4 (10-20); Blood Urea Nitrogen 19 mg/dl (7-18); Calcium 7.9 mg/dl (8.5-10.1); Carbon Dioxide 23 mmol/L (21-32); Chloride 108 mmol/L (98-107); Est GFR (Non-African American) 64.7; Glucose 154 mg/dl (70-99); Potassium 4.4 mmol/L (3.5-5.1); Sodium 137 mmol/L (136-145)
[2019-04-17 14:32] LABS: Albumin Globulin Ratio 0.9 (0.9-2); Alkaline Phosphatase 140 U/L (45-117); Bilirubin,Total 0.3 mg/dl (0.2-1); Globulin 3.5 gm/dl (2.5-4.0); Total Protein 6.6 gm/dl (6.4-8.2)
[2019-04-17] MEDS ORDERED: LORazepam 0.5 MG TAB PO PRN (18:07)
--- NOTE | 2019-04-17 18:21 | Electrocardiogram Report ---
Test Reason : Blood Pressure : / mmHG Vent. Rate : 093 BPM Atrial Rate : 093 BPM P-R Int : 182 ms QRS Dur : 082 ms QT Int : 364 ms P-R-T Axes : 034 -22 045 degrees QTc Int : 452 ms Normal sinus rhythm Possible Left atrial enlargement Borderline ECG When compared with ECG of 08-SEP-2018 18:55, QRS axis Shifted right Criteria for Inferior infarct are no longer Present Confirmed by Dionicio Winter ([id number]) on 04/17/2019 6:20:51 PM Referred By: REFERRED SELF Confirmed By:New Winter
--- NOTE | 2019-04-17 18:37 | Emergency Department Note ---
Entered by Laura Jones acting as a scribe for Rafal Jimenez M.D. History of Present Illness General Chief complaint: Abnormal Labs/Diagnostic Testing Stated complaint: LOW HEMOGLOBIN Time Seen by Provider: 04/17/19 13:00 Source: patient History of Present Illness Onset (ago): day(s) (5) Location: head (general) Maximum Pain Intensity: 0 Quality: + other (abnormal labs with low hemoglobin) Associated symptoms: + denies other symptoms (bleeding, dark or bloody stools), + shortness of breath and + other (fatigue) The patient is a 74 year old female who presents to the Emergency Room with complaints of abnormal labs including low hemoglobin beginning 5 days ago. The patient reports fatigue. She notes shortness of breath for the past 3 weeks. The patient denies bleeding and dark or bloody stools. She notes she is unsure the last time she was given blood. She states she believes it is iron deficiency and anemia. The patient reports a history of bleeding, and liver, gallbladder and pancreas enlargement. Home Medications Home Medications Medication Instructions Recorded Confirmed Type ergocalciferol (vitamin D2) 1,250 50,000 units PO .COMPLEX #12 cap 10/28/18 04/17/19 Rx mcg (50,000 unit) capsule omeprazole 40 mg capsule,delayed 40 mg PO DAILY #90 cap 11/17/18 04/17/19 Rx release dextroamphetamine 10 mg tablet See Rx Instructions PO TID PRN 03/11/19 04/17/19 Rx #150 tab hydroxyzine HCl 25 mg tablet See Rx Instructions .ROUTE 03/19/19 04/17/19 Rx .COMPLEX #90 tablet lorazepam 0.5 mg tablet 0.5 mg PO DAILY PRN #15 tab 04/07/19 04/17/19 Rx fluticasone propionate 50 1 sprays INTNAS DAILY PRN #36.4 ml 04/12/19 04/17/19 Rx mcg/actuation nasal spray,suspension Allergies Allergy/AdvReac Type Severity Reaction Status Date / Time midazolam Allergy Severe AGRESSIVENESS, Verified 04/17/19 14:15 MEMORY LOSS vancomycin Allergy Severe red man Verified 04/17/19 14:15 syndrome and XENIA daptomycin Allergy Mild RASH Verified 04/17/19 14:15 fentanyl Allergy Vomiting Verified 04/17/19 14:15 gluten AdvReac Unknown SEVERE GI Verified 04/17/19 14:15 DISTRESS egg AdvReac Verified 04/17/19 14:15 milk AdvReac Gastrointestinal Verified 04/17/19 14:15 Upset Past Med/Surg History Medical History Anemia Celiac disease Chronic back pain Clostridium difficile infection (Resolved) Failed back surgical syndrome Fibromyalgia Gastroparesis H/O Trung thyroiditis H/o Lyme disease Trung's disease Hiatal hernia Hx of gastric ulcer Hypertension Hypothyroidism Infection of lumbar spine Lumbar stenosis with neurogenic claudication MVP (mitral valve prolapse) Postural kyphosis, thoracic region Trigeminal neuralgia Trochanteric fracture of right femur Tubular adenoma of colon Vitamin D deficiency Surgical History H/O lumpectomy Breast. History of back surgery (Chronic 02/2015) S/P ORIF (open reduction internal fixation) fracture (12/2017) R hip S/P spinal fusion (10/20/15) T5-T11, post instrumentation T6-T9 Status post hip surgery R hip s/p fall 12/2017. 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 and A total of 10 systems reviewed and were otherwise negative Physical Exam Vital Signs Vital Signs - 24 hr 04/17/19 12:57 04/17/19 14:05 04/17/19 14:06 Temperature 36.7 C Temperature Source Oral Pulse Rate 99 H Pulse Rate [Finger] 92 H Pulse Rhythm Pulse Strength Respiratory Rate 16 16 Respiratory Effort / Characteristics Non-Labored Respiratory Depth Normal Respiratory Pattern Regular Blood Pressure 136/75 Blood Pressure [Right Arm] 112/69 Blood Pressure Mean 95 Blood Pressure Mean [Right Arm] 83 Blood Pressure Position Pulse Oximetry 98 95 96 Oxygen Delivery Method Room Air Room Air Room Air Sepsis Recent Fever Within 48 Hours No Sepsis New/Unexplained Change in Mental Status No Sepsis Action Taken by Nursing No Action Required 04/17/19 15:03 04/17/19 15:04 04/17/19 15:10 Temperature 36.5 C Temperature Source Oral Pulse Rate 92 H 90 91 H Pulse Rate [Finger] Pulse Rhythm Pulse Strength Respiratory Rate 20 16 22 Respiratory Effort / Characteristics Respiratory Depth Respiratory Pattern Blood Pressure 128/79 128/79 Blood Pressure [Right Arm] Blood Pressure Mean 94 95 Blood Pressure Mean [Right Arm] Blood Pressure Position Pulse Oximetry 95 Oxygen Delivery Method Sepsis Recent Fever Within 48 Hours Sepsis New/Unexplained Change in Mental Status Sepsis Action Taken by Nursing 04/17/19 15:13 04/17/19 15:15 04/17/19 15:23 Temperature 36.7 C Temperature Source Oral Pulse Rate 86 86 87 Pulse Rate [Finger] Pulse Rhythm Pulse Strength Respiratory Rate 18 22 20 Respiratory Effort / Characteristics Respiratory Depth Respiratory Pattern Blood Pressure 152/93 H 152/93 H Blood Pressure [Right Arm] Blood Pressure Mean 112 106 Blood Pressure Mean [Right Arm] Blood Pressure Position Sitting Pulse Oximetry 99 Oxygen Delivery Method Sepsis Recent Fever Within 48 Hours Sepsis New/Unexplained Change in Mental Status Sepsis Action Taken by Nursing 04/17/19 15:30 04/17/19 15:31 04/17/19 15:45 Temperature 36.7 C Temperature Source Oral Pulse Rate 91 H 91 H 92 H Pulse Rate [Finger] Pulse Rhythm Regular Pulse Strength Normal Respiratory Rate 25 H 25 H 21 Respiratory Effort / Characteristics Respiratory Depth Respiratory Pattern Blood Pressure 154/83 H 97/73 L Blood Pressure [Right Arm] Blood Pressure Mean 106 79 Blood Pressure Mean [Right Arm] Blood Pressure Position Pulse Oximetry 98 Oxygen Delivery Method Sepsis Recent Fever Within 48 Hours Sepsis New/Unexplained Change in Mental Status Sepsis Action Taken by Nursing GENERAL: Awake, alert, well-appearing but pale, in no distress HENT: Normocephalic, atraumatic. EYES: Normal conjunctiva. Sclera non-icteric. RESPIRATORY: Clear to auscultation. Normal respiratory effort. CARDIAC: Normal rate. Normal rhythm. Extremities warm and well perfused. GI: Soft, non-distended. No tenderness to palpation. RECTAL: Deferred. MUSCULOSKELETAL: Atraumatic. Chest examination reveals no tenderness. NEURO: Normal sensorium. No sensory or motor deficits noted. No facial droop. SKIN: Warm and dry, but pale. No rash or jaundice noted. Course Course 1315: Past medical records reviewed. The patient was evaluated in room A03. A complete history and physical exam was performed. 1400: Upon reevaluation, I discussed findings and results with the patient and her . They verbalized agreement of the treatment plan. I spoke with Dr. Alfaro of the [facility]. The patient will be evaluated for further management and care. Medical Decision Making Differential Diagnosis Differential diagnoses includes but is not limited to pneumonia, bronchitis, COPD/Asthma exacerbation, pneumothorax, pulmonary embolism, congestive heart failure, acute coronary syndrome Medical Records Attestation: I reviewed the patient's medical records. Home Medications Current Medication List: was personally reviewed by me Laboratory Data Attestation: I reviewed the patient's lab results. Result diagrams: 04/17/19 13:23 04/17/19 13:23 Lab Results 04/17/19 04/17/19 04/17/19 Range/Units 13:23 13:23 13:23 WBC 5.68 (4.8-10.8) K/uL RBC 3.47 L (4.2-5.4) M/uL Hgb 5.7 L* (12.0-16.0) g/dL Hct 21.1 L (37-47) % MCV 60.8 L (80-100) fL MCH 16.4 L (25-34) pg MCHC 27.0 L (32-36) g/dL RDW Std Deviation 43.6 (36.4-46.3) fL RDW Coeff of [place] 20.1 H (11.5-14.5) % Plt Count 369 (130-400) K/uL MPV 9.6 (7.4-10.4) fL Immature Gran % (Auto) 0.0 % Neut % (Auto) 68.0 % Lymph % (Auto) 13.7 % [place] % (Auto) 16.0 % Eos % (Auto) 1.8 % Baso % (Auto) 0.5 % Immature Gran # (Auto) 0.00 (0.00-0.02) K/uL Neut # (Auto) 3.86 (1.4-6.5) K/uL Lymph # (Auto) 0.78 L (1.2-3.4) K/uL [place] # (Auto) 0.91 H (0.11-0.59) K/uL Eos # (Auto) 0.10 (0-0.5) K/uL Baso # (Auto) 0.03 (0-0.2) K/uL Absolute Nucleated RBC 0.05 H (0-0) K/uL Nucleated RBC % (auto) 0.9 % Polychromasia 1+ Hypochromasia Present Microcytosis Present Target Cells 1+ PT 11.9 (9.0-12.0) Seconds INR 1.2 H (0.9-1.1) APTT 24.6 (21.0-31.0) Seconds PTT Ratio 0.9 Sodium (136-145) mmol/L Potassium (3.5-5.1) mmol/L Chloride (98-107) mmol/L Carbon Dioxide (21-32) mmol/L Anion Gap (3-11) BUN (7-18) mg/dl Creatinine (0.6-1.2) mg/dl Est Cr Clr Drug Dosing Est GFR ( Amer) Est GFR (Non-Af Amer) BUN/Creatinine Ratio (10-20) Glucose (70-99) mg/dl Calcium (8.5-10.1) mg/dl Magnesium (1.8-2.4) mg/dl Iron (35-150) mcg/dl TIBC (250-450) mcg/dl Transferrin (200-360) mg/dl Total Bilirubin (0.2-1) mg/dl AST (15-37) U/L ALT (12-78) U/L Alkaline Phosphatase (45-117) U/L Troponin I (0-0.045) ng/ml Total Protein (6.4-8.2) gm/dl Albumin (3.4-5.0) gm/dl Globulin (2.5-4.0) gm/dl Albumin/Globulin Ratio (0.9-2) Lipase (73-393) U/L Blood Type O Positive Antibody Screen NEGATIVE Crossmatch See Detail 04/17/19 04/17/19 Range/Units 13:23 13:23 WBC (4.8-10.8) K/uL RBC (4.2-5.4) M/uL Hgb (12.0-16.0) g/dL Hct (37-47) % MCV (80-100) fL MCH (25-34) pg MCHC (32-36) g/dL RDW Std Deviation (36.4-46.3) fL RDW Coeff of Kenia (11.5-14.5) % Plt Count (130-400) K/uL MPV (7.4-10.4) fL Immature Gran % (Auto) % Neut % (Auto) % Lymph % (Auto) % [place] % (Auto) % Eos % (Auto) % Baso % (Auto) % Immature Gran # (Auto) (0.00-0.02) K/uL Neut # (Auto) (1.4-6.5) K/uL Lymph # (Auto) (1.2-3.4) K/uL [place] # (Auto) (0.11-0.59) K/uL Eos # (Auto) (0-0.5) K/uL Baso # (Auto) (0-0.2) K/uL Absolute Nucleated RBC (0-0) K/uL Nucleated RBC % (auto) % Polychromasia Hypochromasia Microcytosis Target Cells PT (9.0-12.0) Seconds INR (0.9-1.1) APTT (21.0-31.0) Seconds PTT Ratio Sodium 137 (136-145) mmol/L Potassium 4.4 (3.5-5.1) mmol/L Chloride 108 H (98-107) mmol/L Carbon Dioxide 23 (21-32) mmol/L Anion Gap 6.0 (3-11) BUN 19 H (7-18) mg/dl Creatinine 0.89 (0.6-1.2) mg/dl Est Cr Clr Drug Dosing Not Reportable Est GFR ( Amer) 75.0 Est GFR (Non-Af Amer) 64.7 BUN/Creatinine Ratio 21.4 H (10-20) Glucose 154 H (70-99) mg/dl Calcium 7.9 L (8.5-10.1) mg/dl Magnesium 2.2 (1.8-2.4) mg/dl Iron 8 L (35-150) mcg/dl TIBC 363 (250-450) mcg/dl Transferrin 289 (200-360) mg/dl Total Bilirubin 0.3 (0.2-1) mg/dl AST 9 L (15-37) U/L ALT 12 (12-78) U/L Alkaline Phosphatase 140 H (45-117) U/L Troponin I < 0.015 (0-0.045) ng/ml Total Protein 6.6 (6.4-8.2) gm/dl Albumin 3.1 L (3.4-5.0) gm/dl Globulin 3.5 (2.5-4.0) gm/dl Albumin/Globulin Ratio 0.9 (0.9-2) Lipase 46 L (73-393) U/L Blood Type Antibody Screen Crossmatch Imaging Data Radiologist's Impression: Radiology results as stated below per my review and the radiologist's interpretation: XR chest 1V portable HISTORY: Shortness of breath. COMPARISON: Chest 07/04/2018. FINDINGS: No pneumothorax. No pleural effusions. Moderate hiatus hernia, unchanged. The heart remains mildly enlarged. There are left basilar linear densities consistent with subsegmental atelectasis or scarring. This is similar to the prior study. No new focal lung consolidations to suggest pneumonia. No evidence for pulmonary edema. Extensive thoracolumbar spinal fusion hardware is again noted. IMPRESSION: No significant change compared to the prior study. No acute process. ACT 112: Negative or not required by law. Electronically signed by: Hamilton Salas M.D. 04/17/2019 1:49 PM ECG Data Attestation: I personally reviewed and interpreted this ECG as follows: Indication: + SOB/dyspnea Rate (beats per minute): 93 Rhythm: + normal sinus ECG [place]: + Normal ECG ST segments: no ST depression and no ST elevation ECG Findings: + Other (normal intervals); no PVCs Blood Pressure Blood Pressure Findings: Elevated blood pressure Blood Pressure Disposition: further management by hospitalist CHEY Al[place] Patient is 74-year-old female history of Trung's disease, hypertension, depression, narcolepsy, gastroparesis, gastric ulcer, Lyme disease, lumbar disease presenting today referred by her doctor for low hemoglobin level. Unfortunately could not get a ride until today. Patient states he feels fatigue. No fever or other trauma reported. Laboratory studies was repeated here to confirm. Additional iron studies were sent as well. Patient declined rectal exam and states she does not have any blood in her stool or any melanotic stools. Patient states she does have limited shortness of breath with exertion. Patient was consented for blood transfusion. These were ordered. Hospitalist was contacted for admission. Patient's iron level is significantly low. Not hemodynamically unstable. Impression & Plan Acute anemia, Anemia, iron deficiency Discharge Plan Visit Data *Final* Discharge Date/Time: 04/17/19 17:45 Chief Complaint: Abnormal Labs/Diagnostic Testing Stated Complaint: LOW HEMOGLOBIN ED Provider: Rafal Jimenez Discharge Problem: Acute anemia, Anemia, iron deficiency Patient Disposition: Admitted As Inpatient Discharge Instructions Interventions: ED Discharge Assessment Last Done: 04/17/19 17:45 Discharge Problem: Anemia, iron deficiency Qualifiers: Iron deficiency anemia type: unspecified iron deficiency Qualified Code(s): D50.9 - Iron deficiency anemia, unspecified The scribe's documentation has been prepared under my direction and personally reviewed by me in its entirety. I confirm that the note above accurately reflects all work, treatment, procedures, and medical decision making performed by me.
[2019-04-17] MEDS: FERROUS SULFATE 325 MG TAB PO SCH (19:16)
--- NOTE | 2019-04-17 19:16 | History & Physical Report ---
Date of Service April 17, 2019 Assessment & Plan (1) Anemia, iron deficiency: Patient with microcytic/hypochromic anemia with Hgb = 5.7, HCT = 21.1, MCV = 60.8. Most likely secondary to iron deficiency, iron level = 8. Patient denies acute blood loss. She had an EGD/[place] performed on 12/21/2018 which revealed hiatal hernia and stomach angiectasia as well as tubular adenoma and internal hemorrhoids. Patient was taking p.o. iron supplementation in the past and states that it worked very well and that her hemoglobin level increased to 14. She was able to tolerate the oral iron without difficulty. Transfusion 2 units PRBCs Repeat CBC Hemoccult stools Continue oral iron 325 mg p.o. twice daily Patient should have outpatient monitoring Present on Admission?: Yes (2) Hypothyroidism: Patient reports history of Trung's thyroiditis which resolved without treatment? Presently not on any thyroid medication Check TSH with next blood draw Present on Admission?: Yes (3) Chronic back pain: Patient reports severe diffuse back pain ongoing for years that limits her ADLs and activity. Denies fever/chills/neurological complaints Check x-ray C/T/L-spine to assess hardware progression Patient may benefit from outpatient PT/OT, manipulation or massage Present on Admission?: Yes (4) Narcolepsy and cataplexy: Chronic. Stable. Continue dextroamphetamine FENtransfusion as above, monitor electrolytes and replete as needed, gluten- free diet as tolerated Prophylaxisencourage ambulation CodeDNR/DNI Dispositionadmit to medical floor History of Present Illness Chief Complaint: Shortness of breath, decreased exercise tolerance Primary Care Provider: DO Jolene Go Petersen is a pleasant 74-year-old female presenting with symptomatic anemia. Patient has longstanding history of iron deficiency anemia requiring transfusions in the past. She was taking iron supplementation but stopped it sometime during the last year, unsure of exactly when. She denies any blood loss, hematuria/melena/hematochezia. She is complaining of fatigue, shortness of breath/dyspnea on exertion as well as palpitations occurring more frequently over the last 3 weeks. She denies chest pain/dizziness/syncope. On arrival she was found to be afebrile, hemodynamically stable, Hgb = 5.6, HCT = 21.1 ER course: Normal saline, transfusion Allergies Allergy/AdvReac Type Severity Reaction Status Date / Time midazolam Allergy Severe AGRESSIVENESS, Verified 04/17/19 14:15 MEMORY LOSS vancomycin Allergy Severe red man Verified 04/17/19 14:15 syndrome and XENIA daptomycin Allergy Mild RASH Verified 04/17/19 14:15 fentanyl Allergy Vomiting Verified 04/17/19 14:15 gluten AdvReac Unknown SEVERE GI Verified 04/17/19 14:15 DISTRESS egg AdvReac Verified 04/17/19 14:15 milk AdvReac Gastrointestinal Verified 04/17/19 14:15 Upset Home Medications Home Medications Medication Instructions Recorded Confirmed Type ergocalciferol (vitamin D2) 1,250 50,000 units PO .COMPLEX #12 cap 10/28/18 04/17/19 Rx mcg (50,000 unit) capsule omeprazole 40 mg capsule,delayed 40 mg PO DAILY #90 cap 11/17/18 04/17/19 Rx release dextroamphetamine 10 mg tablet See Rx Instructions PO TID PRN 03/11/19 04/17/19 Rx #150 tab hydroxyzine HCl 25 mg tablet See Rx Instructions .ROUTE 03/19/19 04/17/19 Rx .COMPLEX #90 tablet lorazepam 0.5 mg tablet 0.5 mg PO DAILY PRN #15 tab 04/07/19 04/17/19 Rx fluticasone propionate 50 1 sprays INTNAS DAILY PRN #36.4 ml 04/12/19 04/17/19 Rx mcg/actuation nasal spray,suspension Past Med/Surg History Medical History Anemia Celiac disease Chronic back pain Clostridium difficile infection (Resolved) Failed back surgical syndrome Fibromyalgia Gastroparesis H/O Trung thyroiditis H/o Lyme disease Trung's disease Hiatal hernia Hx of gastric ulcer Hypertension Hypothyroidism Infection of lumbar spine Lumbar stenosis with neurogenic claudication MVP (mitral valve prolapse) Postural kyphosis, thoracic region Trigeminal neuralgia Trochanteric fracture of right femur Tubular adenoma of colon Vitamin D deficiency Surgical History H/O lumpectomy Breast. History of back surgery (Chronic 02/2015) S/P ORIF (open reduction internal fixation) fracture (12/2017) R hip S/P spinal fusion (10/20/15) T5-T11, post instrumentation T6-T9 Status post hip surgery R hip s/p fall 12/2017. Family History Unknown Alcohol abuse Mother Anxiety Ovarian cancer Father Lung disease Colorectal cancer Narcolepsy Aunt Breast cancer Grandmother Myocardial infarction Heart disease Other Family history non-contributory Denies family history of Hypertension Social History Preferred Language: Armenian Communication Ability: Effective Visual Impairment: No Limitations Trimmer Meat Required: No Beliefs That Will Affect Care: None marital status: Current Living Situation: Spouse current occupational status: retired Other Information That Helps Us Care for You: No Feels Safe at Home: Yes Safety Concerns: Feels Safe At This Time Smoking Status: Never smoker Second Hand Exposure: No ; Hx Alcohol Use: No Hx Substance Use: No Dental Care, Regularly: No Seatbelt Use: always Review of Systems Review of Systems: All systems reviewed & are unremarkable except as noted in HPI & below Physical Exam Physical Exam: General: patient resting comfortably, NAD, non-toxic in appearance, AA&O x 4 Skin: warm, dry, intact, no rashes or lesions, + pallor of skin/conjunctiva/oral mucosa HEENT: NC/AT, PERRL, EOMI, anicteric sclera, conjunctiva without injection, external ear normal to inspection and nontender, nares patent, moist mucus membranes, dentition intact, no oropharyngeal lesions, neck supple, trachea midline, no LAD, no thyromegaly, no JVD Heart: +S1/S2, regular, no m/r/g Lungs: equal air entry bilaterally, no rales/rhonchi/wheezes Back: Patient with well-healed surgical scar, spinal deformity from previous surgery Abd: +BS, soft, NT/ND, no masses/organomegaly/ascites Ext: warm, 2+ pulses in UE/LE bilaterally, no clubbing/cyanosis or edema Neuro: nonfocal, patient AA&O x 4, speech intact, no facial droop, moving all extremities on command with equal strength 5/5 Results & Data Vital Signs (Past 12 Hours) Vital Signs Temp Pulse Pulse Resp BP BP Pulse Ox 04/17/19 18:38 36.6 C 95 H 18 141/69 H 96 04/17/19 18:06 37 C 94 H 18 129/77 95 04/17/19 17:45 36.8 C 92 H 20 133/76 98 04/17/19 17:28 36.8 C 92 H 20 130/72 98 04/17/19 17:20 92 H 22 129/61 04/17/19 17:08 36.8 C 93 H 20 129/61 97 04/17/19 17:01 95 H 17 04/17/19 17:00 96 H 19 04/17/19 16:45 96 H 24 172/104 H 04/17/19 16:30 96 H 18 174/90 H 04/17/19 16:15 93 H 24 165/93 H 04/17/19 16:08 36.7 C 99 H 18 174/90 H 97 04/17/19 16:00 91 H 19 156/97 H 04/17/19 15:57 92 H 24 154/83 H 04/17/19 15:45 92 H 21 04/17/19 15:31 91 H 25 H 97/73 L 04/17/19 15:30 36.7 C 91 H 25 H 154/83 H 98 04/17/19 15:23 87 20 152/93 H 04/17/19 15:15 86 22 04/17/19 15:13 36.7 C 86 18 152/93 H 99 04/17/19 15:10 91 H 22 04/17/19 15:04 36.5 C 90 16 128/79 95 04/17/19 15:03 92 H 20 128/79 04/17/19 14:06 96 04/17/19 14:05 92 H 16 112/69 95 04/17/19 12:57 36.7 C 99 H 16 136/75 98 Laboratory Results Lab Results 04/17/19 04/17/19 04/17/19 Range/Units 13:23 13:23 13:23 WBC 5.68 (4.8-10.8) K/uL RBC 3.47 L (4.2-5.4) M/uL Hgb 5.7 L* (12.0-16.0) g/dL Hct 21.1 L (37-47) % MCV 60.8 L (80-100) fL MCH 16.4 L (25-34) pg MCHC 27.0 L (32-36) g/dL RDW Std Deviation 43.6 (36.4-46.3) fL RDW Coeff of [place] 20.1 H (11.5-14.5) % Plt Count 369 (130-400) K/uL MPV 9.6 (7.4-10.4) fL Immature Gran % (Auto) 0.0 % Neut % (Auto) 68.0 % Lymph % (Auto) 13.7 % [place] % (Auto) 16.0 % Eos % (Auto) 1.8 % Baso % (Auto) 0.5 % Immature Gran # (Auto) 0.00 (0.00-0.02) K/uL Neut # (Auto) 3.86 (1.4-6.5) K/uL Lymph # (Auto) 0.78 L (1.2-3.4) K/uL [place] # (Auto) 0.91 H (0.11-0.59) K/uL Eos # (Auto) 0.10 (0-0.5) K/uL Baso # (Auto) 0.03 (0-0.2) K/uL Absolute Nucleated RBC 0.05 H (0-0) K/uL Nucleated RBC % (auto) 0.9 % Polychromasia 1+ Hypochromasia Present Microcytosis Present Target Cells 1+ PT 11.9 (9.0-12.0) Seconds INR 1.2 H (0.9-1.1) APTT 24.6 (21.0-31.0) Seconds PTT Ratio 0.9 Sodium (136-145) mmol/L Potassium (3.5-5.1) mmol/L Chloride (98-107) mmol/L Carbon Dioxide (21-32) mmol/L Anion Gap (3-11) BUN (7-18) mg/dl Creatinine (0.6-1.2) mg/dl Est Cr Clr Drug Dosing Est GFR ( Amer) Est GFR (Non-Af Amer) BUN/Creatinine Ratio (10-20) Glucose (70-99) mg/dl Calcium (8.5-10.1) mg/dl Magnesium (1.8-2.4) mg/dl Iron (35-150) mcg/dl TIBC (250-450) mcg/dl Transferrin (200-360) mg/dl Total Bilirubin (0.2-1) mg/dl AST (15-37) U/L ALT (12-78) U/L Alkaline Phosphatase (45-117) U/L Troponin I (0-0.045) ng/ml Total Protein (6.4-8.2) gm/dl Albumin (3.4-5.0) gm/dl Globulin (2.5-4.0) gm/dl Albumin/Globulin Ratio (0.9-2) Lipase (73-393) U/L Blood Type O Positive Antibody Screen NEGATIVE Crossmatch See Detail 04/17/19 04/17/19 Range/Units 13:23 13:23 WBC (4.8-10.8) K/uL RBC (4.2-5.4) M/uL Hgb (12.0-16.0) g/dL Hct (37-47) % MCV (80-100) fL MCH (25-34) pg MCHC (32-36) g/dL RDW Std Deviation (36.4-46.3) fL RDW Coeff of Ken[place] (11.5-14.5) % Plt Count (130-400) K/uL MPV (7.4-10.4) fL Immature Gran % (Auto) % Neut % (Auto) % Lymph % (Auto) % [place] % (Auto) % Eos % (Auto) % Baso % (Auto) % Immature Gran # (Auto) (0.00-0.02) K/uL Neut # (Auto) (1.4-6.5) K/uL Lymph # (Auto) (1.2-3.4) K/uL [place] # (Auto) (0.11-0.59) K/uL Eos # (Auto) (0-0.5) K/uL Baso # (Auto) (0-0.2) K/uL Absolute Nucleated RBC (0-0) K/uL Nucleated RBC % (auto) % Polychromasia Hypochromasia Microcytosis Target Cells PT (9.0-12.0) Seconds INR (0.9-1.1) APTT (21.0-31.0) Seconds PTT Ratio Sodium 137 (136-145) mmol/L Potassium 4.4 (3.5-5.1) mmol/L Chloride 108 H (98-107) mmol/L Carbon Dioxide 23 (21-32) mmol/L Anion Gap 6.0 (3-11) BUN 19 H (7-18) mg/dl Creatinine 0.89 (0.6-1.2) mg/dl Est Cr Clr Drug Dosing Not Reportable Est GFR ( Amer) 75.0 Est GFR (Non-Af Amer) 64.7 BUN/Creatinine Ratio 21.4 H (10-20) Glucose 154 H (70-99) mg/dl Calcium 7.9 L (8.5-10.1) mg/dl Magnesium 2.2 (1.8-2.4) mg/dl Iron 8 L (35-150) mcg/dl TIBC 363 (250-450) mcg/dl Transferrin 289 (200-360) mg/dl Total Bilirubin 0.3 (0.2-1) mg/dl AST 9 L (15-37) U/L ALT 12 (12-78) U/L Alkaline Phosphatase 140 H (45-117) U/L Troponin I < 0.015 (0-0.045) ng/ml Total Protein 6.6 (6.4-8.2) gm/dl Albumin 3.1 L (3.4-5.0) gm/dl Globulin 3.5 (2.5-4.0) gm/dl Albumin/Globulin Ratio 0.9 (0.9-2) Lipase 46 L (73-393) U/L Blood Type Antibody Screen Crossmatch Diagnostic Findings XR chest 1V portable HISTORY: Shortness of breath. COMPARISON: Chest 07/04/2018. FINDINGS: No pneumothorax. No pleural effusions. Moderate hiatus hernia, unchanged. The heart remains mildly enlarged. There are left basilar linear densities consistent with subsegmental atelectasis or scarring. This is similar to the prior study. No new focal lung consolidations to suggest pneumonia. No evidence for pulmonary edema. Extensive thoracolumbar spinal fusion hardware is again noted. IMPRESSION: No significant change compared to the prior study. No acute process. ACT 112: Negative or not required by law. Electronically signed by: Hamilton Salas M.D. 04/17/2019 1:49 PM Dictated: 04/17/19 1348 Transcribed: 04/17/19 1348 ECG Additional Comments: Test Reason : Blood Pressure : / mmHG Vent. Rate : 093 BPM Atrial Rate : 093 BPM P-R Int : 182 ms QRS Dur : 082 ms QT Int : 364 ms P-R-T Axes : 034 -22 045 degrees QTc Int : 452 ms Normal sinus rhythm Possible Left atrial enlargement Borderline ECG When compared with ECG of 08-SEP-2018 18:55, QRS axis Shifted right Criteria for Inferior infarct are no longer Present Confirmed by Dionicio Winter ([id number]) on 04/17/2019 6:20:51 PM Code Status & VTE Plan Code Status DNR/DNI VTE Prophylaxis Plan VTE Prophylaxis will be ordered: Yes PG Care Time/CCT Total # of Minutes Spent Total Time Spent with Patient: Total time spent is greater than 50% in coordination of care (as documented) at patient's floor/unit and/or counseling patient: Coding Level of Care Code 73045 Initial Inpt Care Lvl 2 Diagnoses Anemia, iron deficiency D50.9 Iron deficiency anemia type: unspecified iron deficiency Hypothyroidism E03.9 Hypothyroidism type: unspecified Chronic back pain M54.9; G89.29 Back pain location: back pain in unspecified location Narcolepsy and cataplexy G47.411 (1) Anemia, iron deficiency Iron deficiency anemia type: unspecified iron deficiency Qualified Code(s): D50.9 - Iron deficiency anemia, unspecified (2) Hypothyroidism Hypothyroidism type: unspecified Qualified Code(s): E03.9 - Hypothyroidism, unspecified (3) Chronic back pain Back pain location: back pain in unspecified location
[2019-04-18] MEDS: [UNRECOGNIZED DRUG - OTHER] SCH ×3 (00:47→15:19)
[2019-04-18 01:03] LABS: Hematocrit (blood only) 27.3 % (37-47); Hemoglobin 7.9 g/dL (12.0-16.0); Mean Corpuscular Hemoglobin 19.1 pg (25-34); Mean Corpuscular Hgb Conc 28.9 g/dL (32-36); Mean Corpuscular Volume 66.1 fL (80-100); Nucleated RBC # (auto) 0.07 K/uL (0-0); Platelet Count 330 K/uL (130-400); RDW Coefficient of Variation 25.4 % (11.5-14.5); Red Blood Count 4.13 M/uL (4.2-5.4); White Blood Count 6.82 K/uL (4.8-10.8)
[2019-04-18] MEDS ORDERED: SODIUM CHLORIDE 0.65% NA SOLN 45 ML (OCEAN) ONE (03:57)
[2019-04-18] MEDS: FERROUS SULFATE 325 MG TAB PO SCH (07:53)
[2019-04-18 08:13] LABS: Hematocrit (blood only) 28.2 % (37-47); Hemoglobin 8.2 g/dL (12.0-16.0); Mean Corpuscular Hemoglobin 18.9 pg (25-34); Mean Corpuscular Hgb Conc 29.1 g/dL (32-36); Mean Corpuscular Volume 65.1 fL (80-100); Mean Platelet Volume 9.7 fL (7.4-10.4); Nucleated RBC # (auto) 0.08 K/uL (0-0); Nucleated RBC % (auto) 1.6 %; Platelet Count 335 K/uL (130-400); RDW Coefficient of Variation 24.8 % (11.5-14.5); Red Blood Count 4.33 M/uL (4.2-5.4); White Blood Count 5.23 K/uL (4.8-10.8)
[2019-04-18 08:36] LABS: Albumin Level 2.9 gm/dl (3.4-5.0); BUN Creatinine Ratio 16.8 (10-20); Calcium 8.1 mg/dl (8.5-10.1); Creatinine Clr Calc Pharmacy 52.7 ml/min
[2019-04-18 08:39] LABS: Albumin Globulin Ratio 0.8 (0.9-2); Bilirubin,Total 0.4 mg/dl (0.2-1); Globulin 3.6 gm/dl (2.5-4.0); Total Protein 6.5 gm/dl (6.4-8.2)
[2019-04-18] MEDS ORDERED: IRON SUCROSE 300 MG in SODIUM CHLORIDE 0.9% 250 ML IV SCH (09:00)
[2019-04-18] MEDS ORDERED: PANTOprazole 40 MG TAB PO SCH (09:00)
[2019-04-18] MEDS ORDERED: CHOLECALCIFEROL 1,000 UNITS 25 MCG TAB PO SCH (09:00)
--- NOTE | 2019-04-18 09:00 | XRay Report ---
XR thoracolumbar spine 2V CLINICAL HISTORY: back pain. assess hardware COMPARISON STUDY: 09/03/2015 FINDINGS: Findings consistent with extensive maida and interpedicular screw fixation of the thoracolumb ar spine. Oblique screws traversing the sacroiliac joints. Developing lucency about the left and to a lesser extent right sacroiliac screw. This would indicate potential developing loosening. All remaining components of the hardware appear intact. IMPRESSION: 1. Extensive maida and intrapedicular screw fixation of the thoracolumbar spine. 2. Sacroiliac screw/bolt placement with developing loosening of the left and to a lesser extent right fixating bulb. ACT 112: Negative or not required by law. The above report was generated using voice recognition software. It may contain grammatical, syntax or spelling errors. Electronically signed by: Kei Brenner M.D. 04/18/2019 8:58 AM
[2019-04-18] MEDS ORDERED: IOVERSOL 100ml IV PRN (11:54)
--- NOTE | 2019-04-18 12:07 | CT Scan Report ---
CT abd pelvis IV con only CT DOSE: 290.09 mGy.cm HISTORY: Anemia Iron deficiency anemia, previous liver lesion TECHNIQUE: Multiaxial CT images of the abdomen and pelvis were performed following the use of intrave nous contrast. A dose lowering technique was utilized adhering to the principles of ALARA. COMPARISON STUDY: 09/08/2018 FINDINGS: Lung bases are clear. The liver currently enhances appropriately. Previously described cent ral lesion is not appreciated. Kidneys are considered negative for hydronephrosis. Bowel pattern within the abdomen and pelvis is nonobstructive. Bladder is midline. No free fluid with in the pelvic cul-de-sac. Stable postoperative changes of the thoracolumbar spine. IMPRESSION: 1. Improved exam compared to the prior study. 2. Small fixed hiatal hernia. 3. The liver is now normal with the previously described central lesion resolved. 4. Study is otherwise unremarkable. ACT 112: Negative or not required by law. The above report was generated using voice recognition software. It may contain grammatical, syntax or spelling errors. Electronically signed by: Kei Brenner M.D. 04/18/2019 12:06 PM
--- NOTE | 2019-04-18 14:35 | Hospitalist Progress Note ---
Date of Service April 18, 2019 Assessment & Plan (1) Anemia, iron deficiency: - Severe microcytic anemia noted on admission, hgb 5.7; MCV 60.8, Iron 8, Ferritin 2.6 -- related to iron deficiency anemia. - Pt. reports previously taking iron supplementation but d/c'ed med after lab work improved. - Most recent EGD/[facility] in Nov 2017 -- hiatal hernia, stomach angiectasia as well as tubular adenoma and internal hemorrhoids. [place] was not accurate due to lack of adequate bowel prep, repeat procedure recommended in 1-2 years. - CT A/P negative for acute bleeding, other abnormalities. - Venofer 300 mg IV x 1 dose; Ferrous sulfate 325 mg BID. - Transfused 2 units pRBCs; hgb was 8.2 this morning. Repeat CBC this evening. - GI consulted -- will likely need to consider inpatient colonoscopy/EGD as pt. is not compliant with outpatient care, may not follow up as scheduled for outpatient procedure. (2) Hypothyroidism: - Pt. reports h/o Trung's that has resolved. TSH is 1.9. - Not currently on Synthroid. (3) Chronic back pain: - C/o left low back pain that has inhibited ADLs. - XR of spine showed sacroiliac screw/bolt placement with loosening of left and right fixating bulb. - May be contributing to pain -- will consult ortho for evaluation. - Consider outpatient PT/OT, massage therapy. (4) Vitamin D deficiency: - Vit D level low - start Vit D 1,000 units daily. (5) Depression: - Previously on Prozac, now discontinued by patient. - Ativan 0.5 mg daily prn. (6) Celiac disease: - Gluten free diet. (7) Narcolepsy and cataplexy: - Continue dextroamphetamine. Dispo: Med/surg; discharge pending GI recs, ortho recs and improvement in anemia. Admission and Anticipated Discharge Date Admission Date: April 17, 2019 Subjective Pt. reports shortness of breath is improved following PRBC transfusion. She feels tired/fatigued in general. C/o left lower back pain -- has been ongoing for 3-4 weeks, no improvement with heat and pain control at home. Pt. has not had a colonoscopy in 2 years but most recent test was suboptimal due to poor bowel prep, recommended repeat study in 1-2 years. Pt. does not want another scope at this time, is very persistent that taking oral ferrous sulfate supplements will fix her anemia without determining an underlying cause. GI is consulted, will likely consider EGD/colonoscopy due to onset of severe TRIP. CT A/P negative for acute large abnormalities. Review of Systems Review of Systems: All systems reviewed & are unremarkable except as noted in HPI & below Constitutional: + fatigue and + weakness; no fever, no chills and no anorexia Respiratory: no dyspnea and no dyspnea on exertion Cardiovascular: no chest pain and no palpitations Gastrointestinal: no abdominal pain, no nausea, no constipation, no blood in stools and no melena Genitourinary: no difficulty urinating Musculoskeletal: + back pain; no radicular pain and no joint pain Physical Exam Physical Exam: General: Resting comfortably HEENT: NC/AT; PERRLA with EOMI; [place] conjunctiva, MMM. No erythema of posterior pharynx Neck: Supple and nontender Cardiac: RRR Lungs: CTA bilaterally Abdomen: Bowel normoactive X 4; Nontender to palpation Extremities: Warm. No edema present Neuro: No focal weakness Skin: No rash Results & Data ([facility]) Vital Signs (Past 12 Hours) Vital Signs Temp Pulse Resp BP Pulse Ox 04/18/19 07:27 36.9 C 84 16 122/70 96 Laboratory Results 04/18/19 04/18/19 04/17/19 Range/Units 08:03 08:01 23:51 WBC 5.23 6.82 (4.8-10.8) K/uL RBC 4.33 4.13 L (4.2-5.4) M/uL Hgb 8.2 L 7.9 L (12.0-16.0) g/dL Hct 28.2 L 27.3 L (37-47) % MCV 65.1 L 66.1 L D (80-100) fL MCH 18.9 L 19.1 L (25-34) pg MCHC 29.1 L 28.9 L (32-36) g/dL RDW Std Deviation 58.0 H 59.0 H (36.4-46.3) fL RDW Coeff of [place] 24.8 H 25.4 H (11.5-14.5) % Plt Count 335 330 (130-400) K/uL MPV 9.7 (7.4-10.4) fL Absolute Nucleated RBC 0.08 H 0.07 H (0-0) K/uL Nucleated RBC % (auto) 1.6 1.0 % Sodium 137 (136-145) mmol/L Potassium 4.0 (3.5-5.1) mmol/L Chloride 108 H (98-107) mmol/L Carbon Dioxide 25 (21-32) mmol/L Anion Gap 4.0 (3-11) BUN 13 (7-18) mg/dl Creatinine 0.78 (0.6-1.2) mg/dl Est Cr Clr Drug Dosing 52.7 Est GFR ( Amer) 88.0 Est GFR (Non-Af Amer) 76.0 BUN/Creatinine Ratio 16.8 (10-20) Glucose 88 (70-99) mg/dl Calcium 8.1 L (8.5-10.1) mg/dl Total Bilirubin 0.4 (0.2-1) mg/dl AST 10 L (15-37) U/L ALT 14 (12-78) U/L Alkaline Phosphatase 144 H (45-117) U/L Total Protein 6.5 (6.4-8.2) gm/dl Albumin 2.9 L (3.4-5.0) gm/dl Globulin 3.6 (2.5-4.0) gm/dl Albumin/Globulin Ratio 0.8 L (0.9-2) Blood Type Antibody Screen Crossmatch 04/17/19 04/17/19 Range/Units 13:23 13:23 WBC (4.8-10.8) K/uL RBC (4.2-5.4) M/uL Hgb (12.0-16.0) g/dL Hct (37-47) % MCV (80-100) fL MCH (25-34) pg MCHC (32-36) g/dL RDW Std Deviation (36.4-46.3) fL RDW Coeff of [place] (11.5-14.5) % Plt Count (130-400) K/uL MPV (7.4-10.4) fL Absolute Nucleated RBC (0-0) K/uL Nucleated RBC % (auto) % Sodium 137 (136-145) mmol/L Potassium 4.4 (3.5-5.1) mmol/L Chloride 108 H (98-107) mmol/L Carbon Dioxide 23 (21-32) mmol/L Anion Gap 6.0 (3-11) BUN 19 H (7-18) mg/dl Creatinine 0.89 (0.6-1.2) mg/dl Est Cr Clr Drug Dosing Not Reportable Est GFR ( Amer) 75.0 Est GFR (Non-Af Amer) 64.7 BUN/Creatinine Ratio 21.4 H (10-20) Glucose 154 H (70-99) mg/dl Calcium 7.9 L (8.5-10.1) mg/dl Total Bilirubin 0.3 (0.2-1) mg/dl AST 9 L (15-37) U/L ALT 12 (12-78) U/L Alkaline Phosphatase 140 H (45-117) U/L Total Protein 6.6 (6.4-8.2) gm/dl Albumin 3.1 L (3.4-5.0) gm/dl Globulin 3.5 (2.5-4.0) gm/dl Albumin/Globulin Ratio 0.9 (0.9-2) Blood Type O Positive Antibody Screen NEGATIVE Crossmatch See Detail PG Care Time/CCT Total # of Minutes Spent Total Time Spent with Patient: Total time spent is greater than 50% in coordination of care (as documented) at patient's floor/unit and/or counseling patient: Coding Level of Care Code 01358 Subseq Obs Care Lvl 3 Diagnoses Anemia, iron deficiency D50.9 Iron deficiency anemia type: unspecified iron deficiency Hypothyroidism E03.9 Hypothyroidism type: unspecified Chronic back pain M54.9; G89.29 Back pain location: back pain in unspecified location Vitamin D deficiency E55.9 Depression F32.9 Celiac disease K90.0 Narcolepsy and cataplexy G47.411 (1) Hypothyroidism Hypothyroidism type: unspecified Qualified Code(s): E03.9 - Hypothyroidism, unspecified (2) Anemia, iron deficiency Iron deficiency anemia type: unspecified iron deficiency Qualified Code(s): D50.9 - Iron deficiency anemia, unspecified (3) Chronic back pain Back pain location: back pain in unspecified location
--- NOTE | 2019-04-18 16:35 | Discharge Summary ---
Date of Service April 18, 2019 Admission HPI Per Admitting Provider Jolene Petersen is a pleasant 74-year-old female presenting with symptomatic anemia. Patient has longstanding history of iron deficiency anemia requiring transfusions in the past. She was taking iron supplementation but stopped it sometime during the last year, unsure of exactly when. She denies any blood loss, hematuria/melena/hematochezia. She is complaining of fatigue, shortness of breath/dyspnea on exertion as well as palpitations occurring more frequently over the last 3 weeks. She denies chest pain/dizziness/syncope. On arrival she was found to be afebrile, hemodynamically stable, Hgb = 5.6, HCT = 21.1 ER course: Normal saline, transfusion Admission Exam Per Admitting Provider General: patient resting comfortably, NAD, non-toxic in appearance, AA&O x 4 Skin: warm, dry, intact, no rashes or lesions, + pallor of skin/conjunctiva/oral mucosa HEENT: NC/AT, PERRL, EOMI, anicteric sclera, conjunctiva without injection, external ear normal to inspection and nontender, nares patent, moist mucus membranes, dentition intact, no oropharyngeal lesions, neck supple, trachea midline, no LAD, no thyromegaly, no JVD Heart: +S1/S2, regular, no m/r/g Lungs: equal air entry bilaterally, no rales/rhonchi/wheezes Back: Patient with well-healed surgical scar, spinal deformity from previous surgery Abd: +BS, soft, NT/ND, no masses/organomegaly/ascites Ext: warm, 2+ pulses in UE/LE bilaterally, no clubbing/cyanosis or edema Neuro: nonfocal, patient AA&O x 4, speech intact, no facial droop, moving all extremities on command with equal strength 5/5 Principal Diagnosis Iron Deficiency Anemia Discharge Exam General: Resting comfortably HEENT: NC/AT; PERRLA with EOMI; Datto conjunctiva, MMM. No erythema of posterior pharynx Neck: Supple and nontender Cardiac: RRR Lungs: CTA bilaterally Abdomen: Bowel normoactive X 4; Nontender to palpation Extremities: Warm. No edema present Neuro: No focal weakness Skin: No rash Discharge Data Allergies Allergy/AdvReac Type Severity Reaction Status Date / Time midazolam Allergy Severe AGRESSIVENESS, Verified 04/17/19 14:15 MEMORY LOSS vancomycin Allergy Severe red man Verified 04/17/19 14:15 syndrome and XENIA daptomycin Allergy Mild RASH Verified 04/17/19 14:15 fentanyl Allergy Vomiting Verified 04/17/19 14:15 gluten AdvReac Unknown SEVERE GI Verified 04/17/19 14:15 DISTRESS egg AdvReac Verified 04/17/19 14:15 milk AdvReac Gastrointestinal Verified 04/17/19 14:15 Upset Consultations 04/17/19 14:52 ED Decision to Admit Stat 04/18/19 08:25 Consult Gastroenterology Routine 04/18/19 12:46 Consult Orthopedic Surgery Routine 04/18/19 16:28 Consult [facility] parking lot supervisor Routine Ordered Studies 04/18/19 11:14 CT abd pelvis IV con only Routine Hospital Course (1) Anemia, iron deficiency: Severe microcytic anemia noted on admission, hgb 5.7; MCV 60.8, Iron 8, Ferritin 2.6 -- related to iron deficiency anemia. Pt. reports previously taking iron supplementation but d/c'ed med after lab work improved. Most recent EGD/colo in Nov 2017 -- hiatal hernia, stomach angiectasia as well as tubular adenoma and internal hemorrhoids. [place] was not accurate due to lack of adequate bowel prep, repeat procedure recommended in 1-[address] A/P negative for acute bleeding, other abnormalities. Venofer 300 mg IV x 1 dose; Ferrous sulfate 325 mg BID. Transfused 2 units pRBCs; hgb was 8.2 this morning. GI consulted, were not able to evaluate prior to patient being discharged to home. Recommend outpatient f/u -- will discuss scheduling appt with nurse navigator. Provided script for CBC in 2-3 days. F/u with PCP in 5-7 days. F/u GI to discuss intervention. May require IV Venofer infusions as outpatient. Continue oral supplementation at this point. (2) Hypothyroidism: Pt. reports h/o Trung's that has resolved. TSH is 1.9. Not currently on Synthroid. (3) Chronic back pain: C/o left low back pain that has inhibited ADLs. XR of spine showed sacroiliac screw/bolt placement with loosening of left and right fixating bulb. May be contributing to pain. Discuss as outpatient. Consider outpatient PT/OT, massage therapy. (4) Vitamin D deficiency: Vit D level low - started Vit D 1,000 units daily. (5) Depression: Previously on Prozac, now discontinued by patient. Ativan 0.5 mg daily prn. (6) Celiac disease: Gluten free diet. (7) Narcolepsy and cataplexy: Continued dextroamphetamine. Discharged to home on 04/18/19. Total Time Total Time Spent Total Time Spent (In Minutes): >30 minutes Total Time Includes: Examination of the Patient, Discharge Planning, Medication Reconciliation, Communication With Other Providers and Other Discharge Plan Discharge Items Patient Disposition: Home - Self-Care Reason For Visit: SYMPTOMATIC ANEMIA Discharge Diagnosis: Symptomatic Anemia Condition on Discharge: Good Goals: You have been hospitalized for an acute medical problem. During your stay at [facility], we have made an effort to correct the problem that brought you to the hospital while keeping you as comfortable as possible. Medications were used to bring your condition under control and your discharge instructions will include directions for any medications you should take after leaving the hospital. Please make sure you see your Primary Care Provider as part of your follow up plan. Activity: As commented below Exercise/Sports: Gradually increase as tolerated Non-emergency contact: Primary Care Provider and Household Personal Assistant Call non-emergency contact if: you have any medication questions, your symptoms worsen and you have a fever Follow-up/Referrals: Glo Hoang, [Primary Care Provider] - Diet: Regular Ambulatory Orders: Complete Blood Count no Diff (Timed) Timeframe: 3 Days Location: Determined by Patient Ordered By: Berenice Montano Attending Provider Instructions: 1. Symptomatic Anemia * Please follow up with Dr. Hoang within the next 5-7 days to discuss this admission. * Script was provided for labs -- please have CBC collected prior to PCP a ppointment. * Please take ferrous sulfate 325 mg twice daily at home. * You will also likely require Venofer infusions -- this will be arranged by our nurse navigator on Friday or Friday. * You will need to follow up with a electrical instrumentation technician as an outpatient to discuss possible EGD/colonoscopy. 2. Vitamin D Deficiency * Please take daily Vit D supplementation at home. Pending Studies at Discharge: No Stand-Alone Forms: My [facility] Medications and DC Order Prescriptions: New ferrous sulfate 325 mg (65 mg iron) Tablet,Delayed Release (Dr/Ec) 325 mg PO BIDM 1 Days Qty: 2 RF: 0 ergocalciferol (vitamin D2) [Vitamin D2] 1,250 mcg (50,000 unit) capsule 1,250 mcg PO DAILY Qty: 1 RF: 0 Continued omeprazole 40 mg capsule,delayed release(DR/EC) 40 mg PO DAILY Qty: 90 RF: 3 dextroamphetamine 10 mg tablet See Rx Instructions PO TID PRN (Reason: narcolepsy) Qty: 150 RF: 0 hydroxyzine HCl 25 mg tablet See Rx Instructions .ROUTE .COMPLEX Qty: 90 RF: 0 lorazepam 0.5 mg tablet 0.5 mg PO DAILY PRN (Reason: anxiety/insomnia) Qty: 15 RF: 0 fluticasone propionate [Flonase Allergy Relief] 50 mcg/actuation spray,suspension 1 sprays INTNAS DAILY PRN (Reason: allergy symptoms) Qty: 36.4 RF: 0 Discontinued ergocalciferol (vitamin D2) 50,000 unit capsule 50,000 units PO .COMPLEX Qty: 12 RF: 0 Discharge Orders: Discharge Order (Routine); Ordered 04/18/19 Ordered By: Berenice Larson Admission Data Admit Date/Time: 04/17/19 15:54 Attending Provider: Ervin Ty Admit Provider: Holly Alfaro Primary Care Provider: Glo Hoang. Other Providers: Holly Alfaro Other Interventions: Discharge Summary Assessment (RN) Last Done: 04/18/19 16:30 DC Date/Time DO NOT enter until pt leaves facility: 04/18/19 17:32 Supervising Physician Co-Signing Physician Notes Patient seen and examined on the day of discharge. I agree with the discharge summary by Berenice FLEMING. I have reviewed the chart including labs, imaging and plans for discharge. long discussion held with the patient and her family at the bedside discussed her drop in hemoglobin, was slow drop from 11 in December 2018 to 5.7 yesterday patient denies seeing any melena or gross bleeding she has been scoped several times by [facility] in the past, no clear source of bleeding her Ferritin is quite low, she admits that she stopped her Ferrous Sulfate Hb up to 8 after transfusion she feels well walking, no dizziness or light headedness she says she is not interested in any scopes during this admission, she will refuse even if offered by GI she wants to resume oral iron and follow up closely with her PCP and GI her agrees with this plan - Microcytic anemia, iron deficiency transfused two units, Hb now > 8, BP stable, no symptoms patient consistently denies any melena, gross GI bleeding had EGD and colonoscopy in the past with Shailesh TOTH, nothing recent patient refuses to consider endoscopic evaluation this admission she will take Ferrous Sulfate she wants to follow up with Dr. Hoang and Shailesh TOTH she will return to the hospital if she has melena, gross bleeding or if she feels weak Coding Level of Care Code D/C Day Management >30 mins Diagnoses Anemia, iron deficiency D50.9 Iron deficiency anemia type: unspecified iron deficiency Hypothyroidism E03.9 Hypothyroidism type: unspecified Chronic back pain M54.9; G89.29 Back pain location: back pain in unspecified location Vitamin D deficiency E55.9 Depression F32.9 Celiac disease K90.0 Narcolepsy and cataplexy G47.411
== END 2019-04-18 17:32 | disposition home or self-care (01) | DRG 812 ==
LOC: ED 12:54 → 4W 15:54 → SUATTDRO 15:54 → INTOOBSV 15:54 → 4W 17:45